=== PATIENT | male | born 1955 | race Caucasian/White ===

== ENCOUNTER 2016-07-24 10:42 | Emergency (ER) | payer OTHER ==
[2016-07-24 11:22] VITALS: BP 128/80; PULSE 104; TEMP 98.2; BMI 27.9
[2016-07-24] MEDS ORDERED: ALBUTEROL SO4 2.5/IPRATROPIUM 0.5 INH SOL 3 ML VIAL.NEB. NEB ONE ×3 (12:54→13:27)
--- NOTE | 2016-07-24 13:02 | PDOC ---
History of Present Illness - General Chief Complaint: Cold Symptoms Stated Complaint: SOB, COUGH, WHEEZING Time Seen by Provider: 07/24/16 12:38 History Source: Patient Exam Limitations: No Limitations - History of Present Illness Initial Comments: 07/24/16 12:57 Chief complaint: Productive cough, shortness of breath, wheezing History of present illness: Patient is a 60-year-old male with a history of COPD , insulin-dependent diabetes with pump, with peripheral neuropathy, GERD, and Lyme's disease here today complaining of nasal congestion, with low-grade fever and productive cough with greenish phlegm 1-1/2 weeks. Patient reports that he feels short of breath intermittently even at rest and with ambulation. His been using his albuterol pump up to 4 times a day with temporary relief of symptoms. Patient denies any sore throat, vomiting or diarrhea. Patient denies any sick contacts. 07/24/16 13:54 Timing/Duration: getting worse Severity: moderate Associated Symptoms: reports: cough (productive greenish phelgm ), fever/chills (low grade), shortness of breath Past History - Past Medical History Allergies/Adverse Reactions: Allergies Allergy/AdvReac Type Severity Reaction Status Date / Time No Known Drug Allergies Allergy Verified 07/24/16 11:18 DUST Allergy Mild Uncoded 07/24/16 11:18 GRASS Allergy Mild Uncoded 07/24/16 11:18 Home Medications: Ambulatory Orders Insulin Pump Cartridge [Omnipod] 1 each SQ DAILY 08/25/13 Omeprazole [Prilosec (RX)] 40 mg PO DAILY 03/07/15 Pregabalin [Lyrica] 150 mg PO BID 11/22/15 Famotidine [Pepcid] 20 mg PO DAILY #14 tablet 06/11/16 Albuterol 0.083% Nebulizer Rose Marie [Ventolin 0.083% Nebulizer Soln -] 1 neb NEB Q4H PRN #30 vial 07/24/16 Albuterol Sulfate Inhaler - [Ventolin HFA Inhaler -] 2 inh PO Q4H PRN #1 inh 10/05 Azithromycin [Zithromax 250mg Tablets -] 250 mg PO UTDICT #6 tab 07/24/16 Fexofenadine HCl [Adelaide Allergy] 180 mg PO DAILY #7 tablet 07/24/16 Prednisone [Deltasone] 20 mg PO BID #8 tablet 07/24/16 Anemia: Yes Asthma: Yes Cancer: No Cardiac Disorders: Yes (HAD ANGIOPLASTYx2 no stent) CVA: No COPD: Yes CHF: No Dementia: No Diabetes: Yes (IDDM-INSULIN PUMP) GI Disorders: Yes (GERD) Disorders: No HTN: No Hypercholesterolemia: Yes Liver Disease: (PANCREAS PROBLEM) Suicide Attempt (Hx): No Seizures: No Thyroid Disease: No - Surgical History Abdominal Surgery: No Appendectomy: No Cardiac Surgery: Yes (ANGIOPLASTY) Cholecystectomy: No Lung Surgery: No Neurologic Surgery: No Orthopedic Surgery: No - Immunization History Immunization Up to Date: Yes - Psycho/Social/Smoking Cessation Hx Anxiety: No Suicidal Ideation: No Smoking Status: Yes Smoking History: Current every day smoker Have you smoked in the past 12 months: Yes Number of Cigarettes Smoked Daily: 5 If you are a former smoker, when did you quit?: SEPTEMBER 2015 Information on smoking cessation initiated: No 'Breaking Loose' booklet given: 09/30/13 Hx Alcohol Use: No Drug/Substance Use Hx: No Substance Use Type: None, Marijuana Hx Substance Use Treatment: No Review of Systems - Review of Systems Able to Perform ROS?: Yes Constitutional: Yes: Fever (low grade ) HEENTM: Yes: Nose Congestion Respiratory: Yes: Shortness of Breath, Wheezing, Productive cough (greenish phelgm for 1 1 /2 weeks ) Cardiac (ROS): No: Symptoms Reported ABD/GI: No: Symptoms Reported : No: Symptoms Reported Musculoskeletal: No: Symptoms Reported Integumentary: No: Symptoms Reported *Physical Exam - Vital Signs Last Vital Signs Temp Pulse Resp BP Pulse Ox 98.2 F 104 H 18 128/80 96 07/24/16 11:18 07/24/16 11:18 07/24/16 11:18 07/24/16 11:18 07/24/16 11:18 - Physical Exam General Appearance: Yes: Appropriately Dressed HEENT: positive: TMs Normal, Nasal Congestion. negative: Pharyngeal Erythema, Tonsillar Exudate, Tonsillar Erythema, Rhinorrhea Neck: negative: Lymphadenopathy (R), Lymphadenopathy (L) Respiratory/Chest: positive: Wheezing (diffuse expiratory b/l ), Other (lungs cta after RX b/l ). negative: Respiratory Distress, Accessory Muscle Use, Labored Respiration, Rapid RR, Decreased Breath Sounds Cardiovascular: positive: Regular Rhythm, Regular Rate, S1, S2 Integumentary: positive: Normal Color Neurologic: positive: Alert, Responsive Medical Decision Making - Medical Decision Making 07/24/16 13:54 07/24/16 13:54 Patient is a 60-year-old male with a history of COPD, insulin-dependent diabetes with pump, with peripheral neuropathy, GERD, and Lyme's disease here today complaining of nasal congestion, with low-grade fever and productive cough with greenish phlegm 1-1/2 weeks. Patient reports that he feels short of breath intermittently even at rest and with ambulation. His been using his albuterol pump up to 4 times a day with temporary relief of symptoms. Patient denies any sore throat, vomiting or diarrhea. Patient denies any sick contacts. Asthma exacerbation with productive cough rule out infiltrate nasal congestion PLAN: DuoNeb 2 Prednisone 60 mg by mouth now then 20 mg twice a day for following 4 days azithromycin 250 mg 2 tabs today than one tab daily for following 4 days adelaide 180 mg daily X 7 days Continue with Symbicort that he has at home will reorder albuterol 0.083% neb solution for every 4 hours as needed for shortness of breath or wheezing Albuterol multidose inhaler HFA 2 puffs every 4 hours as needed for shortness of breath or wheezing chest Xray PA/lateral no infiltrate nowed 07/24/16 14:16 Minimal expiratory wheeze bilaterally feeling much better not short of breath pulse ox is 98% presently 07/26/16 22:41 *DC/Admit/Observation/Transfer Diagnosis at time of Disposition: Asthma exacerbation in COPD, Nasal congestion - Discharge Dispostion Disposition: HOME Condition at time of disposition: Stable - Prescriptions Prescriptions: Fexofenadine HCl [Adelaide Allergy] 180 mg PO DAILY #7 tablet Prednisone [Deltasone] 20 mg PO BID #8 tablet Albuterol 0.083% Nebulizer Rose Marie [Ventolin 0.083% Nebulizer Soln -] 1 neb NEB Q4H PRN #30 vial PRN Reason: Cough Albuterol Sulfate Inhaler - [Ventolin HFA Inhaler -] 2 inh PO Q4H PRN #1 inh PRN Reason: Short Of Breath/Wheezing Azithromycin [Zithromax 250mg Tablets -] 250 mg PO UTDICT #6 tab - Referrals Referrals: Shmuel Balderas MD [Primary Care Provider] - - Patient Instructions Additional Instructions: Follow-up with your primary care provider within the next few days return to emergency room if symptoms worsen any difficulty breathing Drink a lot of fluids and rest Usual Symbicort pump as previously ordered do not use Advair also Patient voiced understanding of discharge instructions and all questions were answered
[2016-07-24] MEDS ORDERED: predniSONE 20 MG TABLET (UD) PO ONE (13:23)
[2016-07-24] MEDS ORDERED: predniSONE 20 MG TABLET (UD) ONE (13:27)
== END 2016-07-24 14:40 | disposition home or self-care (01) ==
LOC: JERFT 10:42
PROC: 3E0F7GC Introduction of Other Therapeutic Substance into Respiratory Tract, Via Natural or Artificial Opening (ICD-10-PCS; principal; 2016-07-24)
DX: J44.1 Chronic obstructive pulmonary disease with (acute) exacerbation (principal); E10.9 Type 1 diabetes mellitus without complications; Z96.41 Presence of insulin pump (external) (internal); Z79.4 Long term (current) use of insulin; G62.9 Polyneuropathy, unspecified; K21.9 Gastro-esophageal reflux disease without esophagitis; Z86.19 Personal history of other infectious and parasitic diseases
CPT/HCPCS: 71020-TC; 94640; 99281-25

== ENCOUNTER 2016-10-26 10:44 | Inpatient (IN) | payer OTHER ==
[2016-10-26 11:14] VITALS: BMI 27.3
[2016-10-26 12:35] LABS: BASOPHIL 0.8 % (0-2.0); EOSINOPHIL 2.8 % (0-4.5); MCH 29.2 pg (25.7-33.7); MCHC 33.3 g/dl (32.0-35.9); MEAN CELL VOLUME 87.7 fl (80-96); MEAN PLT VOLUME 9.8 fl (7.5-11.1); NEUTROPHILS 65.7 % (42.8-82.8); PLATELET COUNT 147 K/MM3 (134-434); RDW 14.4 % (11.9-15.9); WHITE BLOOD COUNT 7.5 K/mm3 (4.0-10.0)
--- NOTE | 2016-10-26 12:40 | PDOC ---
History of Present Illness - General Chief Complaint: Pain Stated Complaint: REVIST/ SWOLLEN NOSE Time Seen by Provider: 10/26/16 11:38 History Source: Patient Exam Limitations: No Limitations - History of Present Illness Initial Comments: 10/26/16 14:17 60yM hx of IDDM, COPD, HTN, HL, neuropathy represents with nsal pain - pt was seen in [facility] on 10/23 for a nodules/furuncles on his L armpit and on his penis and mild swelling/pain on his nose - he was treated with bactrim as outpatient - the nodules improved, but hte swelling on his nose has worsened and pt feels geenerally weak. pt denies any fevers, discharge. Past History - Past Medical History Allergies/Adverse Reactions: Allergies Allergy/AdvReac Type Severity Reaction Status Date / Time No Known Drug Allergies Allergy Verified 10/26/16 11:07 DUST Allergy Mild Uncoded 10/26/16 11:07 GRASS Allergy Mild Uncoded 10/26/16 11:07 Home Medications: Ambulatory Orders Insulin Pump Cartridge [Omnipod] 1 each SQ DAILY 08/25/13 Omeprazole [Prilosec (RX)] 40 mg PO DAILY 03/07/15 Pregabalin [Lyrica] 150 mg PO BID 11/22/15 Albuterol 0.083% Nebulizer Rose Marie [Ventolin 0.083% Nebulizer Soln -] 1 neb NEB Q4H PRN #30 vial 07/24/16 Albuterol Sulfate Inhaler - [Ventolin HFA Inhaler -] 2 inh PO Q4H PRN #1 inh 10/05 Sulfamethoxazole/Trimethoprim [Bactrim Ds -] 1 tab PO BID #10 tablet 10/23/16 Famotidine [Pepcid] 20 mg PO PRN PRN 10/26/16 Anemia: Yes Asthma: Yes Cancer: No Cardiac Disorders: Yes (HAD ANGIOPLASTYx2 no stent) CVA: No COPD: Yes CHF: No Dementia: No Diabetes: Yes (IDDM-INSULIN PUMP) GI Disorders: Yes (GERD) Disorders: No HTN: No Hypercholesterolemia: Yes Liver Disease: (PANCREAS PROBLEM) Suicide Attempt (Hx): No Seizures: No Thyroid Disease: No - Surgical History Abdominal Surgery: No Appendectomy: No Cardiac Surgery: Yes (ANGIOPLASTY) Cholecystectomy: No Lung Surgery: No Neurologic Surgery: No Orthopedic Surgery: No - Immunization History Immunization Up to Date: Yes - Psycho/Social/Smoking Cessation Hx Anxiety: No Suicidal Ideation: No Smoking Status: Yes Smoking History: Current some day smoker Have you smoked in the past 12 months: Yes Number of Cigarettes Smoked Daily: 5 If you are a former smoker, when did you quit?: SEPTEMBER 2015 Information on smoking cessation initiated: No 'Breaking Loose' booklet given: 10/23/16 Hx Alcohol Use: No Drug/Substance Use Hx: No Substance Use Type: None, Marijuana Hx Substance Use Treatment: No Review of Systems - Review of Systems Able to Perform ROS?: Yes Comments:: 10/26/16 14:19 MomConstitutional - no reported Fever, Chills, weakness, HEENT: +nasal pain/sewlling no reported vision changes, sore throat Respiratory: no reported cough, sob, hemoptysis Cardiac: no reported chest pain, palpitations, light headedness, leg swelling Abd/GI: no reported abd pain, nausea, vomiting, blood per rectum, melena, diarrhea : no reported dysuria, frequency, discharge Musculskelatal - no reported back pain, joint swelling skin - no reported bruising, erythema, rash neurological: no reported headache, numbness, focal weakness, tingling, ataxia, weakness hematologic: no reported anemia, easy bruising, easy bleeding *Physical Exam - Vital Signs Last Vital Signs Temp Pulse Resp BP Pulse Ox 97.5 F L 74 19 125/71 98 10/26/16 11:07 10/26/16 11:07 10/26/16 11:07 10/26/16 11:07 10/26/16 11:07 - Physical Exam Comments: 10/26/16 14:21 GENERAL: The patient is awake, alert, and fully oriented, Nontoxic - in no acute distress. HEAD: Normocephalic, atraumatic. EYES: extraocular movements intact, sclera anicteric, conjunctiva clear. ENT: +induration/erythema?swelling on noase, mild tenderness over bridge, Normal voice, Moist mucous membranes. NECK: Normal range of motion, supple LUNGS: Breath sounds equal, clear to auscultation bilaterally. No wheezes, no rhonchi, no rales. HEART: Regular rate and rhythm, normal S1 and S2 without murmur, rub or gallop. ABDOMEN: Soft, nontender, normoactive bowel sounds. No guarding, no rebound. . No CVA tenderness EXTREMITIES: nodules improved in l armpit Normal range of motion, no edema. No clubbing or cyanosis. No cords, erythema, or tenderness. NEUROLOGICAL: No facial assymetry, Normal speech, PSYCH: Normal mood, normal affect. SKIN: Warm, Dry, normal turgor, +cellulitis over tip of nose ED Treatment Course - LABORATORY CBC & Chemistry Diagram: 10/27/16 06:00 10/27/16 06:00 Medical Decision Making - Medical Decision Making 10/26/16 15:[address] haro will admit for failed outpatient mangaement of nasal celulitis pt given ctx will admit to med surg Case discussed in detail with admitting physician including history, physical exam and ancillary studies. Admitting physician has assumed care for the patient, will follow all pending diagnostics and will complete the evaluation and treatment. *DC/Admit/Observation/Transfer Diagnosis at time of Disposition: Cellulitis of nose Diabetes mellitus, insulin dependent (IDDM), uncontrolled Qualifiers: Diabetes mellitus complication status: with other specified complication Qualified Code(s): E10.69 - Type 1 diabetes mellitus with other specified complication - Discharge Dispostion Admit: Yes
[2016-10-26 12:57] LABS: INR 0.9 (0.82-1.09); PROTHROMBIN TIME (PATIENT) 9.9 SEC (9.98-11.88)
[2016-10-26 13:08] LABS: ALBUMIN 3.5 g/dl (3.4-5.0); ALK PHOS 112 U/L (45-117); ANION GAP 8 (8-16); BILIRUBIN,TOTAL 0.2 mg/dL (0.2-1.0); CALCIUM 8.4 mg/dL (8.5-10.1); CO2 27 mmol/L (21-32); COCKROFT - GAULT 78.67; CREATININE 1.2 mg/dL (0.7-1.3); GLUCOSE,RANDOM 102 mg/dL (74-106); SGPT/ALT 21 U/L (12-78); TOT PROT 6.7 g/dl (6.4-8.2)
[2016-10-26 13:13] LABS: SGOT/AST 16 U/L (15-37)
[2016-10-26] MEDS ORDERED: CEFTRIAXONE 1 GM in DEXTROSE 5%-WATER - 50 ML IVPB ONE (14:14)
[2016-10-26] MEDS ORDERED: OXYCODONE/APAP 5/325MG COMBO TABLET PO ONE (14:16)
[2016-10-26] MEDS ORDERED: CEFTRIAXONE 50 ML ONE (14:24)
[2016-10-26] MEDS ORDERED: OXYCODONE/APAP 5/325MG COMBO TABLET ONE (14:24)
[2016-10-26] MEDS ORDERED: ALBUTEROL SO4 0.083% IH SOL 2.5 MG/3 ML VIAL.NEB. NEB PRN (17:39)
[2016-10-26] MEDS ORDERED: OXYCODONE/APAP 5/325MG COMBO TABLET PO PRN (20:29)
[2016-10-26] MEDS ORDERED: PREGABALIN 100 MG CAPSULE PO SCH (22:00)
[2016-10-26] MEDS: INSULIN SLIDING SCALE (NOVOLOG) 1 VIAL SQ SCH (22:26)
[2016-10-26] MEDS: ACETAMINOPHEN 325 MG TABLET (FP) PO PRN (22:37)
[2016-10-26] MEDS: oxyCODONE HCL 5 MG TABLET PO PRN (22:38)
[2016-10-26] MEDS: PREGABALIN 75 MG CAPSULE PO SCH (22:41)
[2016-10-27] MEDS: INSULIN SLIDING SCALE (NOVOLOG) 1 VIAL SQ SCH ×3 (06:12→22:38)
[2016-10-27 08:00] LABS: BASOPHIL 0.4 % (0-2.0); EOSINOPHIL 3.5 % (0-4.5); MCH 29.4 pg (25.7-33.7); MCHC 33.7 g/dl (32.0-35.9); MEAN CELL VOLUME 87.3 fl (80-96); NEUTROPHILS 62.1 % (42.8-82.8); PLATELET COUNT 148 K/MM3 (134-434); RDW 14.3 % (11.9-15.9); WHITE BLOOD COUNT 6.5 K/mm3 (4.0-10.0)
[2016-10-27 08:26] LABS: ALBUMIN 1.2 g/dl (3.4-5.0); CALCIUM 7.3 mg/dL (8.5-10.1)
[2016-10-27 08:31] LABS: BILIRUBIN,TOTAL 1.1 mg/dL (0.2-1.0); COCKROFT - GAULT 47.2; TOT PROT 3.9 g/dl (6.4-8.2)
--- NOTE | 2016-10-27 09:34 | PN ---
Progress Note (short form) - Note Progress Note: ID Full note dictated Basically 60 year old severe diabetic male with nasal cellulitis after nasal hair clipping 2 days before. seen in ER and given vancom x 1 dose discharged Bactrim without improvement. Selected Entries 10/27/16 06:00 Temperature 98.1 F Pulse Rate 59 L Respiratory 18 Rate Blood Pressure 121/69 Assesment Cellulitis of the nose as well as abscess small left axilla and penis ( eschar not fluctuant or tender) Nose has a small pustule but does not seem fluctuant it is however tender Plan Treat for MRSA Warm soaks to face Nasal swab MRSA Amanda Problem List - Problems (1) Cellulitis of nose Code(s): J34.0 - ABSCESS, FURUNCLE AND CARBUNCLE OF NOSE (2) Diabetes mellitus, insulin dependent (IDDM), uncontrolled Code(s): E10.65 - TYPE 1 DIABETES MELLITUS WITH HYPERGLYCEMIA Qualifiers: Diabetes mellitus complication status: with other specified complication Qualified Code(s): E10.69 - Type 1 diabetes mellitus with other specified complication; E10.65 - Type 1 diabetes mellitus with hyperglycemia
--- NOTE | 2016-10-27 09:39 | HP ---
Admitting History and Physical - Primary Care Physician PCP: Nita Sales - Admission Chief Complaint: CELLULITIS History Source: Medical Record - Past Medical History Cardiovascular: Yes: HTN, Hyperlipdemia Endocrine: Yes: Diabetes Mellitus - Smoking History Smoking history: Current some day smoker Have you smoked in the past 12 months: Yes Aproximately how many cigarettes per day: 5 If you are a former smoker, when did you quit?: SEPTEMBER 2015 - Alcohol/Substance Use Hx Alcohol Use: No Home Medications - Allergies Allergies/Adverse Reactions: Allergies Allergy/AdvReac Type Severity Reaction Status Date / Time No Known Drug Allergies Allergy Verified 10/26/16 11:07 DUST Allergy Mild Uncoded 10/26/16 11:07 GRASS Allergy Mild Uncoded 10/26/16 11:07 - Home Medications Home Medications: Ambulatory Orders Insulin Pump Cartridge [Omnipod] 1 each SQ DAILY 08/25/13 Omeprazole [Prilosec (RX)] 40 mg PO DAILY 03/07/15 Pregabalin [Lyrica] 150 mg PO BID 11/22/15 Albuterol 0.083% Nebulizer Rose Marie [Ventolin 0.083% Nebulizer Soln -] 1 neb NEB Q4H PRN #30 vial 07/24/16 Albuterol Sulfate Inhaler - [Ventolin HFA Inhaler -] 2 inh PO Q4H PRN #1 inh 10/05 Sulfamethoxazole/Trimethoprim [Bactrim Ds -] 1 tab PO BID #10 tablet 10/23/16 Famotidine [Pepcid] 20 mg PO PRN PRN 10/26/16 Review of Systems - Review of Systems Constitutional: denies: Chills, Fever Cardiovascular: denies: Chest Pain Respiratory: denies: SOB Gastrointestinal: denies: Abdominal Pain Integumentary: reports: Erythema, Rash Physical Examination Vital Signs: Vital Signs Temperature 98.1 F 10/27/16 06:00 Pulse Rate 59 L 10/27/16 06:00 Respiratory Rate 18 10/27/16 06:00 Blood Pressure 121/69 10/27/16 06:00 O2 Sat by Pulse Oximetry (%) 95 10/26/16 18:19 Findings/Remarks: DOES NOT HAVE INSULIN PUMP REFILL CONCERNED ABOUT GETTING MULTIPLE INJECTIONS IN [employer] Constitutional: Yes: Calm Neck: Yes: WNL Cardiovascular: Yes: WNL Respiratory: Yes: WNL Gastrointestinal: Yes: WNL Edema: No Integumentary: Yes: Erythema Labs: CBC, BMP 10/27/16 06:00 10/27/16 06:00 Imaging - Results Chest X-ray: Report Reviewed Problem List - Problems (1) Cellulitis of nose Code(s): J34.0 - ABSCESS, FURUNCLE AND CARBUNCLE OF NOSE (2) Diabetes mellitus, insulin dependent (IDDM), uncontrolled Code(s): E10.65 - TYPE 1 DIABETES MELLITUS WITH HYPERGLYCEMIA Qualifiers: Diabetes mellitus complication status: with other specified complication Qualified Code(s): E10.69 - Type 1 diabetes mellitus with other specified complication; E10.65 - Type 1 diabetes mellitus with hyperglycemia (3) COPD (chronic obstructive pulmonary disease) Code(s): J44.9 - CHRONIC OBSTRUCTIVE PULMONARY DISEASE, UNSPECIFIED (4) Cellulitis Code(s): L03.90 - CELLULITIS, UNSPECIFIED (5) AMARJIT (acute kidney injury) Code(s): N17.9 - ACUTE KIDNEY FAILURE, UNSPECIFIED Assessment/Plan 60yM hx of IDDM, COPD, HTN, HL, neuropathy represents with nsal pain - pt was seen in [facility] on 10/23 for a nodules/furuncles on his L armpit and on his penis and mild swelling/pain on his nose - he was treated with bactrim as outpatient - the nodules improved, but hte swelling on his nose has worsened and pt feels geenerally weak. pt denies any fevers, discharge. (1) Cellulitis of nose Code(s): J34.0 - ABSCESS, FURUNCLE AND CARBUNCLE OF NOSE + PENIS/L AXILA ID ON CASE IV ABx F/U CULTURES (2) Diabetes mellitus, insulin dependent (IDDM), uncontrolled Code(s): E10.65 - TYPE 1 DIABETES MELLITUS WITH HYPERGLYCEMIA Qualifiers: Diabetes mellitus complication status: with other specified complication Qualified Code(s): E10.69 - Type 1 diabetes mellitus with other specified complication; E10.65 - Type 1 diabetes mellitus with hyperglycemia BGM ISS (3) COPD (chronic obstructive pulmonary disease) Code(s): J44.9 - CHRONIC OBSTRUCTIVE PULMONARY DISEASE, UNSPECIFIED ALB NEB PRN (4) Cellulitis Code(s): L03.90 - CELLULITIS, UNSPECIFIED (5) AMARJIT (acute kidney injury) Code(s): N17.9 - ACUTE KIDNEY FAILURE, UNSPECIFIED [employer]
[2016-10-27] MEDS ORDERED: SODIUM CHLORIDE 500 ML IV STA (09:43)
[2016-10-27] MEDS ORDERED: PT OWN MED DRAWER 7, Y5N ONE ×2 (09:56→20:21)
--- NOTE | 2016-10-27 09:59 | CONS ---
DATE OF CONSULTATION: HISTORY: This is a 60-year-old insulin-dependent diabetic who I am asked to see because of severe nasal redness and tenderness. He was seen in the emergency room on October 23 for the same reason and at the same time noted a furuncle in his left axilla. Two days prior to his emergency room visit, he had noted trimming nasal hairs with an electric clipper. He denied any fever or chills and while in the emergency room was given 1.5 g of vancomycin and discharged on Bactrim. She has been taking the Bactrim but because of persistent pain, redness, and swelling of his nose, he is now admitted for further antibiotic treatment. He does not have any fever or chills and does note a lesion on the penis, which started simultaneously with the onset of his nasal erythema. PAST MEDICAL HISTORY: Includes hypertension, hyperlipidemia, peripheral neuropathy, insulin-dependent diabetes. MEDICATIONS: Insulin pump, omeprazole, Lyrica, Pepcid. ALLERGIES: None known. SOCIAL HISTORY: Smoker. Denies substance abuse. HIV testing negative May 2016. PAST SURGICAL HISTORY: Includes anion gap. FAMILY HISTORY: Noncontributory. REVIEW OF SYSTEMS: Respiratory: No cough or shortness of breath. Cardiac: No chest pain or palpitations. Gastrointestinal: No nausea, vomiting, or diarrhea. Genitourinary: No dysuria or hematuria. PHYSICAL EXAMINATION: Vital Signs: Temperature 97.5, pulse 74, respirations 19, blood pressure 125/71. HEENT: Reveals induration, tenderness, and redness of the tip of the nose, which is exquisitely tender but does not appear fluctuant. There is a small, pustular lesion noted at the base of the nose but no drainage seen. Neck: Supple without adenopathy. Lungs: Clear to P and A. Heart: S1, S2. Regular rhythm without murmur. Abdomen: Soft and nontender without organomegaly. Skin: Reveals a small, nonfluctuant abscess of the left axilla and a dry, indurated, what appears to be eschar on the penile shaft, which is nontender with no drainage evident. The white count is 6.5, hemoglobin 13.3, platelets 148, BUN 25, creatinine 2. Liver enzymes: Alkaline phosphatase 162. HIV testing negative May 2016. Abdominal sonogram dated June 11, 2016 shows partially distended gallbladder without intraluminal stones or wall thickening and no pericholecystic fluid noted. ASSESSMENT: Insulin-dependent diabetic presents with facial cellulitis involving the tip of the nose, small pustular lesion seen, concomitant small abscess in the left axilla as well as a dry eschar, which is recent on the penile shaft all of which seem most consistent with community-acquired methicillin-resistant Staphylococcus aureus infection. I am comfortable in the absence of systemic symptoms treating him with gram-positive coverage alone. We will give him vancomycin 1.5 g redosed now and check a level tomorrow morning with redosing of vancomycin accordingly. Warm soaks to the area. Monitor liver enzymes. Nares screening for MRSA. SKYE SORIA M.D. [id number]
[2016-10-27] MEDS ORDERED: INSULIN PUMP CARTRIDGE SQ SCH (10:00)
[2016-10-27] MEDS ORDERED: CEFTRIAXONE 50 ML IVPB SCH (10:00)
[2016-10-27] MEDS ORDERED: VANCOMYCIN 1,500 MG in DEXTROSE 5%-WATER - 500 ML IVPB ONE ×2 (10:00→10:30)
[2016-10-27] MEDS: RANITIDINE HCL 150 MG TABLET (FP) PO SCH (10:06)
[2016-10-27] MEDS: PREGABALIN 75 MG CAPSULE PO SCH ×2 (10:06→22:31)
[2016-10-27] MEDS: LORATADINE 10 MG TABLET PO SCH (10:06)
[2016-10-27] MEDS: oxyCODONE HCL 5 MG TABLET PO PRN ×3 (10:16→22:45)
[2016-10-27] MEDS: ACETAMINOPHEN 325 MG TABLET (FP) PO PRN ×3 (10:17→22:44)
--- NOTE | 2016-10-27 11:26 | CON.NEP ---
Consult Consult Specialty:: RENAL Reason for Consultation:: renal insufficiency - History of Present Illness Chief Complaint: nasal cellulitis History of Present Illness: 60 yearold admitted with cellulitis of his nose that has not improved in 4 days. He had an acute rise in creatinine. So nephrology is called. Says he always gets infections and has been on an insulin pump for a long time. Has bells palsy, neuropathy, ckd, htn. Says his diabetes was discovered 17 years ago because he lost his vision. He is able to urinate without problems. - History Source History Provided By: Patient, Medical Record - Past Medical History Cardio/Vascular: Yes: HTN, Hyperlipdemia Endocrine: Yes: Diabetes Mellitus - Alcohol/Substance Use Hx Alcohol Use: No - Smoking History Smoking history: Current some day smoker Have you smoked in the past 12 months: Yes Aproximately how many cigarettes per day: 5 If you are a former smoker, when did you quit?: SEPTEMBER 2015 Home Medications - Allergies Allergies/Adverse Reactions: Allergies Allergy/AdvReac Type Severity Reaction Status Date / Time No Known Drug Allergies Allergy Verified 10/26/16 11:07 DUST Allergy Mild Uncoded 10/26/16 11:07 GRASS Allergy Mild Uncoded 10/26/16 11:07 - Home Medications Home Medications: Ambulatory Orders Insulin Pump Cartridge [Omnipod] 1 each SQ DAILY 08/25/13 Omeprazole [Prilosec (RX)] 40 mg PO DAILY 03/07/15 Pregabalin [Lyrica] 150 mg PO BID 11/22/15 Albuterol 0.083% Nebulizer Rose Marie [Ventolin 0.083% Nebulizer Soln -] 1 neb NEB Q4H PRN #30 vial 07/24/16 Albuterol Sulfate Inhaler - [Ventolin HFA Inhaler -] 2 inh PO Q4H PRN #1 inh 10/05 Sulfamethoxazole/Trimethoprim [Bactrim Ds -] 1 tab PO BID #10 tablet 10/23/16 Famotidine [Pepcid] 20 mg PO PRN PRN 10/26/16 Review of Systems - Review of Systems Constitutional: reports: No Symptoms Eyes: reports: No Symptoms HENT: reports: No Symptoms Neck: reports: No Symptoms Cardiovascular: reports: No Symptoms Respiratory: reports: No Symptoms Gastrointestinal: reports: No Symptoms Genitourinary: reports: No Symptoms Breasts: reports: No Symptoms Reported Musculoskeletal: reports: No Symptoms Integumentary: reports: Erythema Neurological: reports: No Symptoms Endocrine: reports: No Symptoms Hematology/Lymphatic: reports: No Symptoms Psychiatric: reports: No Symptoms Nephrology Consult - Height Height: 5 ft 9 in - Weight Weight: 185 lb - BMI Body Mass Index (BMI): 27.3 - Lab Results CBC,BMP: CBC, BMP 10/27/16 06:00 10/27/16 06:00 Anion Gap: Anion Gap Anion Gap 10 (8-16) 10/27/16 06:00 - Imaging X-ray: Report Reviewed (MAVERICK) - Physical Examination Vital Signs: Vital Signs Temperature 98.1 F 10/27/16 06:00 Pulse Rate 59 L 10/27/16 06:00 Respiratory Rate 18 10/27/16 06:00 Blood Pressure 121/69 10/27/16 06:00 O2 Sat by Pulse Oximetry (%) 95 10/26/16 18:19 Constitutional: Yes: Well Nourished, No Distress, Calm Eyes: Yes: Conjunctiva Clear HENT: Yes: Atraumatic, Other (asymmetric face nasal swelling and erythema) Neck: Yes: WNL Cardiovascular: Yes: Regular Rate and Rhythm Respiratory: Yes: Regular, CTA Bilaterally Gastrointestinal: Yes: Normal Bowel Sounds Renal/: Yes: WNL. No: Bladder Distention Musculoskeletal: Yes: WNL Extremities: Yes: WNL Edema: No Wound/Incision: Yes: Clean/Dry Neurological: Yes: Alert, Oriented Psychiatric: Yes: Alert, Oriented Assessment/Plan IMPRESSION AMARJIT- may have been from combination of volume depletion and bactrim probable ckd previous proteinuria may have been from uti +/_concentrated urine facial cellulitis hypernatremia PLAN monitor vanco trough hydrate obtain urinalysis, urine sodium and creat urine protein Im aware of need for vanco but would avoid other potential nephrotoxic agents MV
[2016-10-27] MEDS ORDERED: INSULIN SLIDING SCALE (NOVOLOG) 1 VIAL SQ SCH (14:28)
[2016-10-27 16:06] LABS: URINE APPEARANCE CLEAR; URINE BILIRUBIN NEGATIVE (NEGATIVE); URINE BLOOD NEGATIVE (NEGATIVE); URINE COLOR LTYELLOW; URINE GLUCOSE (UA) 1+ (NEGATIVE); URINE KETONE NEGATIVE (NEGATIVE); URINE LEUK ESTERASE NEGATIVE (NEGATIVE); URINE NITRITE NEGATIVE (NEGATIVE); URINE PROTEIN NEGATIVE (NEGATIVE); URINE UROBILINOGEN NEGATIVE E.U./dl (0.2-1.0)
[2016-10-27] MEDS ORDERED: INSULIN (NOVOLOG) ASPART 100 UNITS/ML 10ML VIAL ONE (16:36)
[2016-10-27] MEDS: diphenhydrAMINE HCL 25 MG CAPSULE (FP) PO PRN (16:40)
[2016-10-27] MEDS ORDERED: INSULIN DETEMIR 100 UNITS/ML MDV SQ ONE ×2 (17:05→17:48)
[2016-10-27] MEDS: MUPIROCIN CA 2% TOPICAL CREAM 15 GM TUBE TP SCH (22:31)
--- NOTE | 2016-10-28 00:45 | CONSULT ---
Consult Consult Specialty:: endocrine Referred by:: Reason for Consultation:: iddm type 1 - History of Present Illness Chief Complaint: high sugars skin infection on nose and penis History of Present Illness: 60yM hx of IDDM, COPD, HTN, HL, neuropathy represents with nsal pain - pt was seen in [facility] [place] on 10/23 for a nodules/furuncles on his L armpit and on his penis and mild swelling/pain on his nose - he was treated with bactrim as outpatient - the nodules improved, but the swelling on nose and face area increase,denies fever or chills - History Source History Provided By: Patient - Past Medical History Cardio/Vascular: Yes: HTN, Hyperlipdemia Endocrine: Yes: Diabetes Mellitus - Alcohol/Substance Use Hx Alcohol Use: No - Smoking History Smoking history: Current some day smoker Have you smoked in the past 12 months: Yes Aproximately how many cigarettes per day: 5 If you are a former smoker, when did you quit?: SEPTEMBER 2015 Home Medications - Allergies Allergies/Adverse Reactions: Allergies Allergy/AdvReac Type Severity Reaction Status Date / Time No Known Drug Allergies Allergy Verified 10/26/16 11:07 DUST Allergy Mild Uncoded 10/26/16 11:07 GRASS Allergy Mild Uncoded 10/26/16 11:07 - Home Medications Home Medications: Ambulatory Orders Insulin Pump Cartridge [Omnipod] 1 each SQ DAILY 08/25/13 Omeprazole [Prilosec (RX)] 40 mg PO DAILY 03/07/15 Pregabalin [Lyrica] 150 mg PO BID 11/22/15 Albuterol 0.083% Nebulizer Rose Marie [Ventolin 0.083% Nebulizer Soln -] 1 neb NEB Q4H PRN #30 vial 07/24/16 Albuterol Sulfate Inhaler - [Ventolin HFA Inhaler -] 2 inh PO Q4H PRN #1 inh 10/05 Sulfamethoxazole/Trimethoprim [Bactrim Ds -] 1 tab PO BID #10 tablet 10/23/16 Famotidine [Pepcid] 20 mg PO PRN PRN 10/26/16 Review of Systems - Review of Systems Constitutional: reports: Lethargy, Malaise, Weakness Eyes: reports: No Symptoms HENT: reports: No Symptoms Neck: reports: No Symptoms Cardiovascular: reports: No Symptoms Respiratory: reports: Cough, Exercise Intolerance, SOB, SOB on Exertion Gastrointestinal: reports: No Symptoms Genitourinary: reports: No Symptoms Breasts: reports: No Symptoms Reported Musculoskeletal: reports: Muscle Pain, Muscle Cramps, Muscle Weakness Integumentary: reports: No Symptoms, Pruritis Neurological: reports: Numbness, Weakness Endocrine: reports: Unexplained Weight Gain Physical Exam Vital Signs: Vital Signs Temperature 98.2 F 10/27/16 20:00 Pulse Rate 74 10/27/16 20:00 Respiratory Rate 18 10/27/16 20:00 Blood Pressure 109/54 10/27/16 20:00 O2 Sat by Pulse Oximetry (%) 96 10/27/16 09:00 Constitutional: Yes: Anxious Eyes: Yes: EOM Intact HENT: Yes: Normocephalic, Nasal Congestion, Pharyngeal Erythema Neck: Yes: Trachea Midline Cardiovascular: Yes: Regular Rate and Rhythm Respiratory: Yes: CTA Bilaterally Gastrointestinal: Yes: Normal Bowel Sounds ...Rectal Exam: Yes: Deferred Renal/: Yes: WNL Breast(s): Yes: WNL Musculoskeletal: Yes: WNL Extremities: Yes: WNL Edema: No Integumentary: Yes: Erythema, Other (tip of nose 2cm circular area of reddness and swelling) Labs: CBC, BMP 10/27/16 06:00 10/27/16 06:00 Problem List - Problems (1) AMARJIT (acute kidney injury) Code(s): N17.9 - ACUTE KIDNEY FAILURE, UNSPECIFIED (2) COPD (chronic obstructive pulmonary disease) Code(s): J44.9 - CHRONIC OBSTRUCTIVE PULMONARY DISEASE, UNSPECIFIED (3) Cellulitis of nose Code(s): J34.0 - ABSCESS, FURUNCLE AND CARBUNCLE OF NOSE (4) Diabetes mellitus, insulin dependent (IDDM), uncontrolled Code(s): E10.65 - TYPE 1 DIABETES MELLITUS WITH HYPERGLYCEMIA Qualifiers: Diabetes mellitus complication status: with other specified complication Qualified Code(s): E10.69 - Type 1 diabetes mellitus with other specified complication; E10.65 - Type 1 diabetes mellitus with hyperglycemia Assessment/Plan Current Active Problems AMARJIT (acute kidney injury) (Acute) COPD (chronic obstructive pulmonary disease) (Acute) Cellulitis (Acute) Cellulitis of nose (Acute) Diabetes mellitus, insulin dependent (IDDM), uncontrolled (Acute) Abnormal Lab Results 10/27/16 10/27/16 06:00 14:00 Sodium 147 H Chloride 117 H D Carbon Dioxide 20 L D BUN 25 H D Creatinine 2.0 H D Random Glucose 72 L D Calcium 7.3 L Total Bilirubin 1.1 H D AST 45 H D Alkaline Phosphatase 162 H D Total Protein 3.9 L D Albumin 1.2 L D Urine Glucose (UA) 1+ H plan: bgm qid novolg sliding scale will treatment for skin infection ongoing will use insulin insjections levemir 25 units sq am ck hba1c
[2016-10-28] MEDS: INSULIN SLIDING SCALE (NOVOLOG) 1 VIAL SQ SCH ×5 (06:40→22:08)
[2016-10-28] MEDS ORDERED: INSULIN DETEMIR 100 UNITS/ML MDV SQ SCH ×2 (07:00)
[2016-10-28] MEDS ORDERED: INSULIN (NOVOLOG) ASPART 100 UNITS/ML 10ML VIAL ONE ×2 (07:06→11:14)
[2016-10-28 07:29] LABS: BASOPHIL 0.7 % (0-2.0); EOSINOPHIL 4.1 % (0-4.5); MCH 29.2 pg (25.7-33.7); MCHC 33.5 g/dl (32.0-35.9); MEAN CELL VOLUME 87.2 fl (80-96); MEAN PLT VOLUME 9.3 fl (7.5-11.1); NEUTROPHILS 54.7 % (42.8-82.8); PLATELET COUNT 158 K/MM3 (134-434); RDW 13.9 % (11.9-15.9)
[2016-10-28 08:11] LABS: CALCIUM 8.8 mg/dL (8.5-10.1)
[2016-10-28 08:14] LABS: ALBUMIN 3.5 g/dl (3.4-5.0); ALK PHOS 129 U/L (45-117); ANION GAP 7 (8-16); BILIRUBIN,TOTAL 0.4 mg/dL (0.2-1.0); CO2 30 mmol/L (21-32); GLUCOSE,RANDOM 207 mg/dL (74-106); SGOT/AST 14 U/L (15-37); SGPT/ALT 22 U/L (12-78); TOT PROT 6.9 g/dl (6.4-8.2)
--- NOTE | 2016-10-28 08:18 | PN ---
Progress Note, Physician Chief Complaint: FEELS BETTER - Current Medication List Current Medications: Active Medications Acetaminophen (Tylenol -) 325 mg PO Q4H PRN PRN Reason: PAIN Stop: 10/29/16 20:56 Last Admin: 10/27/16 16:39 Dose: 325 mg Acetaminophen (Tylenol -) 650 mg PO Q6H PRN PRN Reason: PAIN Last Admin: 10/27/16 22:44 Dose: 650 mg Albuterol Sulfate (Ventolin 0.083% Nebulizer Soln -) 1 amp NEB Q4H PRN PRN Reason: COUGH Diphenhydramine HCl (Benadryl -) 25 mg PO Q6H PRN PRN Reason: FOR ITCHING Last Admin: 10/27/16 16:40 Dose: 25 mg Insulin Aspart (Novolog Vial Sliding Scale -) 1 vial SQ ACHS [facility] PRN Reason: Protocol Last Admin: 10/28/16 06:40 Dose: 7 units Insulin Detemir (Levemir Vial) 26 units SQ AM [facility] Last Admin: 10/28/16 06:39 Dose: 26 units Loratadine (Claritin -) 10 mg PO DAILY [facility] Last Admin: 10/27/16 10:06 Dose: 10 mg Mupirocin (Bactroban 2% Cream -) 1 applic TP BID [facility] Last Admin: 10/27/16 22:31 Dose: 1 appful Oxycodone HCl (Roxicodone -) 5 mg PO Q4H PRN PRN Reason: PAIN Last Admin: 10/27/16 16:40 Dose: 5 mg Oxycodone HCl (Roxicodone -) 5 mg PO Q6H PRN PRN Reason: PAIN Last Admin: 10/27/16 22:45 Dose: 5 mg Pregabalin (Lyrica -) 150 mg PO BID [facility] Last Admin: 10/27/16 22:31 Dose: 150 mg Ranitidine HCl (Zantac -) 150 mg PO DAILY [facility] Last Admin: 10/27/16 10:06 Dose: 150 mg - Objective Vital Signs: Vital Signs Temperature 97.7 F 10/28/16 06:00 Pulse Rate 65 10/28/16 06:00 Respiratory Rate 18 10/28/16 06:00 Blood Pressure 126/68 10/28/16 06:00 O2 Sat by Pulse Oximetry (%) 98 10/27/16 21:00 Constitutional: Yes: Calm Neck: Yes: WNL Cardiovascular: Yes: WNL Respiratory: Yes: WNL Gastrointestinal: Yes: WNL Edema: No Integumentary: Yes: Erythema (+ EDEMA IMPROVED) Labs: CBC, BMP 10/28/16 06:15 INR, PTT INR 0.90 (0.82-1.09) 10/26/16 12:22 Problem List - Problems (1) Cellulitis of nose Code(s): J34.0 - ABSCESS, FURUNCLE AND CARBUNCLE OF NOSE (2) Diabetes mellitus, insulin dependent (IDDM), uncontrolled Code(s): E10.65 - TYPE 1 DIABETES MELLITUS WITH HYPERGLYCEMIA Qualifiers: Diabetes mellitus complication status: with other specified complication Qualified Code(s): E10.69 - Type 1 diabetes mellitus with other specified complication; E10.65 - Type 1 diabetes mellitus with hyperglycemia (3) COPD (chronic obstructive pulmonary disease) Code(s): J44.9 - CHRONIC OBSTRUCTIVE PULMONARY DISEASE, UNSPECIFIED (4) Cellulitis Code(s): L03.90 - CELLULITIS, UNSPECIFIED (5) AMARJIT (acute kidney injury) Code(s): N17.9 - ACUTE KIDNEY FAILURE, UNSPECIFIED Assessment/Plan 60yM hx of IDDM, COPD, HTN, HL, neuropathy represents with nsal pain - pt was seen in [facility] [place] on 10/23 for a nodules/furuncles on his L armpit and on his penis and mild swelling/pain on his nose - he was treated with bactrim as outpatient - the nodules improved, but hte swelling on his nose has worsened and pt feels geenerally weak. pt denies any fevers, discharge. (1) Cellulitis of nose Code(s): J34.0 - ABSCESS, FURUNCLE AND CARBUNCLE OF NOSE + PENIS/L AXILA ID ON CASE IV ABx BCx NEG - F/U Cx (2) Diabetes mellitus, insulin dependent (IDDM), uncontrolled Code(s): E10.65 - TYPE 1 DIABETES MELLITUS WITH HYPERGLYCEMIA Qualifiers: Diabetes mellitus complication status: with other specified complication Qualified Code(s): E10.69 - Type 1 diabetes mellitus with other specified complication; E10.65 - Type 1 diabetes mellitus with hyperglycemia BGM ISS ENDO ON CASE (3) COPD (chronic obstructive pulmonary disease) Code(s): J44.9 - CHRONIC OBSTRUCTIVE PULMONARY DISEASE, UNSPECIFIED ALB NEB PRN (4) Cellulitis Code(s): L03.90 - CELLULITIS, UNSPECIFIED (5) AMARJIT (acute kidney injury) Code(s): N17.9 - ACUTE KIDNEY FAILURE, UNSPECIFIED RENAL ON CASE F/U NITHIN MERCHANT
[2016-10-28] MEDS: ACETAMINOPHEN 325 MG TABLET (FP) PO PRN ×2 (08:26→21:09)
[2016-10-28] MEDS: oxyCODONE HCL 5 MG TABLET PO PRN ×2 (08:27→21:07)
[2016-10-28] MEDS: HEPARIN NA (PORCINE) 5,000 UNITS/ML 1ML VIAL SQ SCH ×2 (09:15→21:10)
[2016-10-28] MEDS: LORATADINE 10 MG TABLET PO SCH (09:15)
[2016-10-28] MEDS: PREGABALIN 75 MG CAPSULE PO SCH ×2 (09:15→21:08)
[2016-10-28] MEDS: RANITIDINE HCL 150 MG TABLET (FP) PO SCH (09:15)
[2016-10-28] MEDS: MUPIROCIN CA 2% TOPICAL CREAM 15 GM TUBE TP SCH ×2 (09:17→21:10)
[2016-10-28 11:24] LABS: SODIUM,RANDOM URINE 98 MMOL/L
[2016-10-28] MEDS: diphenhydrAMINE HCL 25 MG CAPSULE (FP) PO PRN (12:28)
--- NOTE | 2016-10-28 12:42 | PN ---
Progress Note (short form) - Note Progress Note: RENAL Pt is awake and alert no new complaints says he has a lesion on his penis and wont let the nurse take a look at it Last Vital Signs Temp Pulse Resp BP Pulse Ox 97.8 F 83 20 128/80 98 10/28/16 11:43 10/28/16 09:21 10/28/16 09:21 10/28/16 09:21 10/28/16 09:00 lungs clear cvs s1s 2 rr +DEANRDE abd osft ext no edema neuro a+ox3 lesion on penis with some drainage CBC, BMP 10/28/16 06:15 10/28/16 06:15 Current Medications Generic Name Dose Route Start Last Admin Trade Name Freq PRN Reason Stop Dose Admin Acetaminophen 325 mg 10/26/16 20:57 10/27/16 16:39 Tylenol - PO 10/29/16 20:56 325 mg Q4H PRN Administration PAIN Acetaminophen 650 mg 10/26/16 21:10 10/28/16 08:26 Tylenol - PO 650 mg Q6H PRN Administration PAIN Albuterol Sulfate 1 amp 10/26/16 17:39 Ventolin 0.083% Nebulizer Soln - NEB Q4H PRN COUGH Diphenhydramine HCl 25 mg 10/27/16 14:27 10/28/16 12:28 Benadryl - PO 25 mg Q6H PRN Administration FOR ITCHING Heparin Sodium (Porcine) 5,000 unit 10/28/16 10:00 10/28/16 09:15 Heparin - SQ 5,000 unit BID JUAN Administration Insulin Aspart 1 vial 10/27/16 17:04 10/28/16 11:19 Novolog Vial Sliding Scale - SQ 7 units ACHS JUAN Administration Protocol Insulin Detemir 26 units 10/28/16 07:00 10/28/16 06:39 Levemir Vial SQ 26 units AM JUAN Administration Loratadine 10 mg 10/27/16 10:00 10/28/16 09:15 Claritin - PO 10 mg DAILY JUAN Administration Mupirocin 1 applic 10/27/16 22:00 10/28/16 09:17 Bactroban 2% Cream - TP 1 applic BID JUAN Administration Oxycodone HCl 5 mg 10/26/16 21:12 10/28/16 08:27 Roxicodone - PO 5 mg Q6H PRN Administration PAIN Pregabalin 150 mg 10/26/16 22:30 10/28/16 09:15 Lyrica - PO 150 mg BID JUAN Administration Ranitidine HCl 150 mg 10/27/16 10:00 10/28/16 09:15 Zantac - PO 150 mg DAILY JUAN Administration IMPRESSION AMARJIT- may have been from combination of volume depletion and bactrim- resolved probable ckd previous proteinuria may have been from uti +/_concentrated urine facial cellulitis stable hypernatremia resolved PLAN monitor vanco trough keep hydrated i cultured lesion on penis MV
[2016-10-28] MEDS: VANCOMYCIN 1 GRAM (PRE-DOCKED) 250 ML IVPB SCH (13:49)
--- NOTE | 2016-10-28 14:03 | PN ---
Progress Note, Physician History of Present Illness: Reports decreased nasal swelling and erythema No c/o fever/ chills - Current Medication List Current Medications: Active Medications Acetaminophen (Tylenol -) 325 mg PO Q4H PRN PRN Reason: PAIN Stop: 10/29/16 20:56 Last Admin: 10/27/16 16:39 Dose: 325 mg Acetaminophen (Tylenol -) 650 mg PO Q6H PRN PRN Reason: PAIN Last Admin: 10/28/16 08:26 Dose: 650 mg Albuterol Sulfate (Ventolin 0.083% Nebulizer Soln -) 1 amp NEB Q4H PRN PRN Reason: COUGH Diphenhydramine HCl (Benadryl -) 25 mg PO Q6H PRN PRN Reason: FOR ITCHING Last Admin: 10/28/16 12:28 Dose: 25 mg Heparin Sodium (Porcine) (Heparin -) 5,000 unit SQ BID [facility] Last Admin: 10/28/16 09:15 Dose: 5,000 unit Vancomycin HCl (Vancomycin (Pre-Docked)) 250 mls @ 166.667 mls/hr IVPB Q12H [facility] Last Admin: 10/28/16 13:49 Dose: 166.667 mls/hr Insulin Aspart (Novolog Vial Sliding Scale -) 1 vial SQ ACHS [facility] PRN Reason: Protocol Last Admin: 10/28/16 11:19 Dose: 7 units Insulin Detemir (Levemir Vial) 26 units SQ AM [facility] Last Admin: 10/28/16 06:39 Dose: 26 units Loratadine (Claritin -) 10 mg PO DAILY [facility] Last Admin: 10/28/16 09:15 Dose: 10 mg Mupirocin (Bactroban 2% Cream -) 1 applic TP BID [facility] Last Admin: 10/28/16 09:17 Dose: 1 applic Oxycodone HCl (Roxicodone -) 5 mg PO Q6H PRN PRN Reason: PAIN Last Admin: 10/28/16 08:27 Dose: 5 mg Pregabalin (Lyrica -) 150 mg PO BID [facility] Last Admin: 10/28/16 09:15 Dose: 150 mg Ranitidine HCl (Zantac -) 150 mg PO DAILY [facility] Last Admin: 10/28/16 09:15 Dose: 150 mg - Objective Vital Signs: Vital Signs Temperature 97.8 F 10/28/16 11:43 Pulse Rate 83 10/28/16 09:21 Respiratory Rate 20 10/28/16 09:21 Blood Pressure 128/80 10/28/16 09:21 O2 Sat by Pulse Oximetry (%) 98 10/28/16 09:00 Constitutional: Yes: No Distress Eyes: Yes: Conjunctiva Clear HENT: Yes: Other (+ erythema and swelling bridge of nose) Cardiovascular: Yes: Regular Rate and Rhythm, S1, S2 Respiratory: Yes: CTA Bilaterally Gastrointestinal: Yes: Normal Bowel Sounds, Soft. No: Tenderness Genitourinary: Yes: Other (+ penile lesion) Edema: No Labs: CBC, BMP 10/28/16 06:15 10/28/16 06:15 INR, PTT INR 0.90 (0.82-1.09) 10/26/16 12:22 Assessment/Plan Cellulitis, bridge of nose Penile shaft lesion , possible staph infection Await c/s Continue vancomycin
--- NOTE | 2016-10-28 21:57 | PN ---
Progress Note (short form) - Note Progress Note: iddm /neuropathy, improved cellulitis skin staph infxn Abnormal Lab Results 10/28/16 10/28/16 10/28/16 06:15 07:49 11:10 Anion Gap 7 L Random Glucose 207 H D AST 14 L D Alkaline Phosphatase 129 H D U Random Total Protein < 5 L Vancomycin Trough 3.153 L* Laboratory Results - last 24 hr 10/27/16 10/28/16 10/28/16 22:34 00:21 06:15 WBC RBC Hgb Hct MCV MCHC RDW Plt Count MPV Neutrophils % Lymphocytes % Monocytes % Eosinophils % Basophils % Sodium Potassium Chloride Carbon Dioxide Anion Gap BUN Creatinine Creat Clearance w eGFR POC Glucometer 362 217 Random Glucose Calcium Total Bilirubin AST ALT Alkaline Phosphatase Total Protein Albumin U Random Total Protein Ur Random Sodium Urine Creatinine Protein/Creatinin Ratio Vancomycin Trough RPR Titer Nonreactive 10/28/16 10/28/16 10/28/16 06:15 06:15 06:37 WBC 5.0 RBC 4.68 Hgb 13.7 Hct 40.9 MCV 87.2 MCHC 33.5 RDW 13.9 Plt Count 158 MPV 9.3 Neutrophils % 54.7 Lymphocytes % 33.6 D Monocytes % 6.9 Eosinophils % 4.1 Basophils % 0.7 Sodium 137 Potassium 4.5 Chloride 100 D Carbon Dioxide 30 D Anion Gap 7 L BUN 11 D Creatinine 1.0 D Creat Clearance w eGFR > 60 POC Glucometer 204 Random Glucose 207 H D Calcium 8.8 D Total Bilirubin 0.4 D AST 14 L D ALT 22 D Alkaline Phosphatase 129 H D Total Protein 6.9 D Albumin 3.5 D U Random Total Protein Ur Random Sodium Urine Creatinine Protein/Creatinin Ratio Vancomycin Trough RPR Titer 10/28/16 10/28/16 10/28/16 07:49 11:07 11:10 WBC RBC Hgb Hct MCV MCHC RDW Plt Count MPV Neutrophils % Lymphocytes % Monocytes % Eosinophils % Basophils % Sodium Potassium Chloride Carbon Dioxide Anion Gap BUN Creatinine Creat Clearance w eGFR POC Glucometer 233 Random Glucose Calcium Total Bilirubin AST ALT Alkaline Phosphatase Total Protein Albumin U Random Total Protein < 5 L Ur Random Sodium 98 Urine Creatinine 72.0 Protein/Creatinin Ratio <0.07 Vancomycin Trough 3.153 L* RPR Titer 10/28/16 10/28/16 16:54 21:16 WBC RBC Hgb Hct MCV MCHC RDW Plt Count MPV Neutrophils % Lymphocytes % Monocytes % Eosinophils % Basophils % Sodium Potassium Chloride Carbon Dioxide Anion Gap BUN Creatinine Creat Clearance w eGFR POC Glucometer 384 120 Random Glucose Calcium Total Bilirubin AST ALT Alkaline Phosphatase Total Protein Albumin U Random Total Protein Ur Random Sodium Urine Creatinine Protein/Creatinin Ratio Vancomycin Trough RPR Titer Laboratory Tests 10/28/16 10/28/16 10/28/16 00:21 06:37 11:07 POC Glucometer 217 204 233 10/28/16 10/28/16 16:54 21:16 POC Glucometer 384 120 Current Medications Generic Name Dose Route Start Last Admin Trade Name Freq PRN Reason Stop Dose Admin Acetaminophen 325 mg 10/26/16 20:57 10/27/16 16:39 Tylenol - PO 10/29/16 20:56 325 mg Q4H PRN Administration PAIN Acetaminophen 650 mg 10/26/16 21:10 10/28/16 21:09 Tylenol - PO 650 mg Q6H PRN Administration PAIN Albuterol Sulfate 1 amp 10/26/16 17:39 Ventolin 0.083% Nebulizer Soln - NEB Q4H PRN COUGH Diphenhydramine HCl 25 mg 10/27/16 14:27 10/28/16 12:28 Benadryl - PO 25 mg Q6H PRN Administration FOR ITCHING Heparin Sodium (Porcine) 5,000 unit 10/28/16 10:00 10/28/16 21:10 Heparin - SQ 5,000 unit BID JUAN Administration Vancomycin HCl 250 mls @ 166.667 mls/hr 10/28/16 14:00 10/28/16 13:49 Vancomycin (Pre-Docked) IVPB 166.667 mls/hr Q12H JUAN Administration Insulin Aspart 1 vial 10/27/16 17:04 10/28/16 17:01 Novolog Vial Sliding Scale - SQ 12 units ACHS JUAN Administration Protocol Insulin Detemir 26 units 10/28/16 07:00 10/28/16 06:39 Levemir Vial SQ 26 units AM JUAN Administration Loratadine 10 mg 10/27/16 10:00 10/28/16 09:15 Claritin - PO 10 mg DAILY JUAN Administration Mupirocin 1 applic 10/27/16 22:00 10/28/16 21:10 Bactroban 2% Cream - TP 1 applic BID JUAN Administration Oxycodone HCl 5 mg 10/26/16 21:12 10/28/16 21:07 Roxicodone - PO 5 mg Q6H PRN Administration PAIN Pregabalin 150 mg 10/26/16 22:30 10/28/16 21:08 Lyrica - PO 150 mg BID JUAN Administration Ranitidine HCl 150 mg 10/27/16 10:00 10/28/16 09:15 Zantac - PO 150 mg DAILY JUAN Administration plan : increase levemir 30 units am Problem List - Problems (1) AMARJIT (acute kidney injury) Code(s): N17.9 - ACUTE KIDNEY FAILURE, UNSPECIFIED (2) COPD (chronic obstructive pulmonary disease) Code(s): J44.9 - CHRONIC OBSTRUCTIVE PULMONARY DISEASE, UNSPECIFIED (3) Cellulitis of nose Code(s): J34.0 - ABSCESS, FURUNCLE AND CARBUNCLE OF NOSE (4) Diabetes mellitus, insulin dependent (IDDM), uncontrolled Code(s): E10.65 - TYPE 1 DIABETES MELLITUS WITH HYPERGLYCEMIA Qualifiers: Diabetes mellitus complication status: with other specified complication Qualified Code(s): E10.69 - Type 1 diabetes mellitus with other specified complication; E10.65 - Type 1 diabetes mellitus with hyperglycemia
[2016-10-29] MEDS: VANCOMYCIN 1 GRAM (PRE-DOCKED) 250 ML IVPB SCH ×2 (02:53→14:49)
[2016-10-29] MEDS: INSULIN DETEMIR 100 UNITS/ML MDV SQ SCH (06:07)
[2016-10-29] MEDS: INSULIN SLIDING SCALE (NOVOLOG) 1 VIAL SQ SCH ×4 (06:09→23:10)
[2016-10-29] MEDS ORDERED: INSULIN DETEMIR 100 UNITS/ML MDV SQ ONE (06:44)
[2016-10-29] MEDS ORDERED: INSULIN (NOVOLOG MIX 70/30) 100 UNITS/ML MDV SQ ONE (06:44)
[2016-10-29] MEDS ORDERED: INSULIN (NOVOLOG) ASPART 100 UNITS/ML 10ML VIAL ONE ×4 (06:44→21:12)
[2016-10-29 08:16] LABS: BASOPHIL 0.6 % (0-2.0); EOSINOPHIL 4.8 % (0-4.5); MCHC 33.5 g/dl (32.0-35.9); MEAN CELL VOLUME 86.5 fl (80-96); MEAN PLT VOLUME 9.2 fl (7.5-11.1); NEUTROPHILS 53.3 % (42.8-82.8); PLATELET COUNT 167 K/MM3 (134-434); RDW 14.3 % (11.9-15.9); WHITE BLOOD COUNT 4.8 K/mm3 (4.0-10.0)
[2016-10-29 08:39] LABS: ALBUMIN 3.6 g/dl (3.4-5.0); ANION GAP 8 (8-16); CALCIUM 9.1 mg/dL (8.5-10.1); CO2 29 mmol/L (21-32); GLUCOSE,RANDOM 261 mg/dL (74-106)
[2016-10-29 08:43] LABS: ALK PHOS 133 U/L (45-117); BILIRUBIN,TOTAL 0.4 mg/dL (0.2-1.0); COCKROFT - GAULT 85.82; CREATININE 1.1 mg/dL (0.7-1.3); SGOT/AST 11 U/L (15-37); SGPT/ALT 24 U/L (12-78); TOT PROT 7.2 g/dl (6.4-8.2)
[2016-10-29] MEDS: oxyCODONE HCL 5 MG TABLET PO PRN ×2 (09:35→23:05)
[2016-10-29] MEDS: RANITIDINE HCL 150 MG TABLET (FP) PO SCH (09:37)
[2016-10-29] MEDS: LORATADINE 10 MG TABLET PO SCH (09:37)
[2016-10-29] MEDS: HEPARIN NA (PORCINE) 5,000 UNITS/ML 1ML VIAL SQ SCH ×2 (09:37→23:06)
[2016-10-29] MEDS: PREGABALIN 75 MG CAPSULE PO SCH ×2 (09:37→23:05)
[2016-10-29] MEDS: MUPIROCIN CA 2% TOPICAL CREAM 15 GM TUBE TP SCH ×2 (09:43→23:06)
--- NOTE | 2016-10-29 12:14 | PN ---
Progress Note, Physician Chief Complaint: nasala sweeling tender to touch says that penile lesion is better and less drainage - Current Medication List Current Medications: Active Medications Acetaminophen (Tylenol -) 325 mg PO Q4H PRN PRN Reason: PAIN Stop: 10/29/16 20:56 Last Admin: 10/27/16 16:39 Dose: 325 mg Acetaminophen (Tylenol -) 650 mg PO Q6H PRN PRN Reason: PAIN Last Admin: 10/28/16 21:09 Dose: 650 mg Albuterol Sulfate (Ventolin 0.083% Nebulizer Soln -) 1 amp NEB Q4H PRN PRN Reason: COUGH Diphenhydramine HCl (Benadryl -) 25 mg PO Q6H PRN PRN Reason: FOR ITCHING Last Admin: 10/28/16 12:28 Dose: 25 mg Heparin Sodium (Porcine) (Heparin -) 5,000 unit SQ BID [facility] Last Admin: 10/29/16 09:37 Dose: 5,000 unit Vancomycin HCl (Vancomycin (Pre-Docked)) 250 mls @ 166.667 mls/hr IVPB Q12H [facility] Last Admin: 10/29/16 02:53 Dose: 166.667 mls/hr Insulin Aspart (Novolog Vial Sliding Scale -) 1 vial SQ ACHS [facility] PRN Reason: Protocol Last Admin: 10/29/16 11:26 Dose: 8 units Insulin Detemir (Levemir Vial) 30 units SQ AM [facility] Last Admin: 10/29/16 06:07 Dose: 30 units Loratadine (Claritin -) 10 mg PO DAILY [facility] Last Admin: 10/29/16 09:37 Dose: 10 mg Mupirocin (Bactroban 2% Cream -) 1 applic TP BID [facility] Last Admin: 10/29/16 09:43 Dose: 1 applic Oxycodone HCl (Roxicodone -) 5 mg PO Q6H PRN PRN Reason: PAIN Last Admin: 10/29/16 09:35 Dose: 5 mg Pregabalin (Lyrica -) 150 mg PO BID [facility] Last Admin: 10/29/16 09:37 Dose: 150 mg Ranitidine HCl (Zantac -) 150 mg PO DAILY [facility] Last Admin: 10/29/16 09:37 Dose: 150 mg - Objective Vital Signs: Vital Signs Temperature 98.5 F 10/29/16 09:28 Pulse Rate 84 10/29/16 09:28 Respiratory Rate 20 10/29/16 09:28 Blood Pressure 123/80 10/29/16 09:28 O2 Sat by Pulse Oximetry (%) 95 10/29/16 09:44 Constitutional: Yes: Calm HENT: Yes: Other (nasal swelling tenderness erythema sinus tnederenss) Neck: Yes: Trachea Midline Cardiovascular: Yes: Regular Rate and Rhythm, S1, S2 Respiratory: Yes: CTA Bilaterally Gastrointestinal: Yes: Normal Bowel Sounds, Soft Edema: No Neurological: Yes: Alert, Oriented Labs: CBC, BMP 10/29/16 07:20 10/29/16 07:20 INR, PTT INR 0.90 (0.82-1.09) 10/26/16 12:22 Problem List - Problems (1) Cellulitis of nose Assessment/Plan: mrsa iv vanco bid ID on board Code(s): J34.0 - ABSCESS, FURUNCLE AND CARBUNCLE OF NOSE (2) Diabetes mellitus, insulin dependent (IDDM), uncontrolled Assessment/Plan: levemir 30 units lyrica for neuropathy Code(s): E10.65 - TYPE 1 DIABETES MELLITUS WITH HYPERGLYCEMIA Qualifiers: Diabetes mellitus complication status: with other specified complication Qualified Code(s): E10.69 - Type 1 diabetes mellitus with other specified complication; E10.65 - Type 1 diabetes mellitus with hyperglycemia (3) AMARJIT (acute kidney injury) Assessment/Plan: bun/cr better today renal ultrasound pending Code(s): N17.9 - ACUTE KIDNEY FAILURE, UNSPECIFIED
[2016-10-29] MEDS ORDERED: PT OWN MED DRAWER 7, Y5N ONE (13:20)
--- NOTE | 2016-10-29 20:51 | PN ---
Progress Note, Physician History of Present Illness: Pt seen and examined at bedside. He is awake and alert. He says he feels better today. - Current Medication List Current Medications: Active Medications Acetaminophen (Tylenol -) 325 mg PO Q4H PRN PRN Reason: PAIN Stop: 10/29/16 20:56 Last Admin: 10/27/16 16:39 Dose: 325 mg Acetaminophen (Tylenol -) 650 mg PO Q6H PRN PRN Reason: PAIN Last Admin: 10/28/16 21:09 Dose: 650 mg Albuterol Sulfate (Ventolin 0.083% Nebulizer Soln -) 1 amp NEB Q4H PRN PRN Reason: COUGH Diphenhydramine HCl (Benadryl -) 25 mg PO Q6H PRN PRN Reason: FOR ITCHING Last Admin: 10/28/16 12:28 Dose: 25 mg Heparin Sodium (Porcine) (Heparin -) 5,000 unit SQ BID [facility] Last Admin: 10/29/16 09:37 Dose: 5,000 unit Vancomycin HCl (Vancomycin (Pre-Docked)) 250 mls @ 166.667 mls/hr IVPB Q12H [facility] Last Admin: 10/29/16 14:49 Dose: 166.667 mls/hr Insulin Aspart (Novolog Vial Sliding Scale -) 1 vial SQ ACHS [facility] PRN Reason: Protocol Last Admin: 10/29/16 17:22 Dose: 7 units Insulin Detemir (Levemir Vial) 30 units SQ AM [facility] Last Admin: 10/29/16 06:07 Dose: 30 units Loratadine (Claritin -) 10 mg PO DAILY [facility] Last Admin: 10/29/16 09:37 Dose: 10 mg Mupirocin (Bactroban 2% Cream -) 1 applic TP BID [facility] Last Admin: 10/29/16 09:43 Dose: 1 applic Oxycodone HCl (Roxicodone -) 5 mg PO Q6H PRN PRN Reason: PAIN Last Admin: 10/29/16 09:35 Dose: 5 mg Pregabalin (Lyrica -) 150 mg PO BID [facility] Last Admin: 10/29/16 09:37 Dose: 150 mg Ranitidine HCl (Zantac -) 150 mg PO DAILY [facility] Last Admin: 10/29/16 09:37 Dose: 150 mg - Objective Vital Signs: Vital Signs Temperature 99.0 F 10/29/16 18:00 Pulse Rate 81 10/29/16 18:00 Respiratory Rate 20 10/29/16 18:00 Blood Pressure 99/74 10/29/16 18:00 O2 Sat by Pulse Oximetry (%) 95 10/29/16 09:44 Constitutional: Yes: Calm Eyes: Yes: Conjunctiva Clear HENT: Yes: Other (cellulitis on nose) Cardiovascular: Yes: S1, S2 Respiratory: Yes: CTA Bilaterally Gastrointestinal: Yes: Normal Bowel Sounds, Soft Genitourinary: Yes: WNL Breast(s): Yes: WNL Musculoskeletal: Yes: WNL Extremities: Yes: WNL Edema: No Neurological: Yes: Oriented Psychiatric: Yes: Oriented Labs: CBC, BMP 10/29/16 07:20 10/29/16 07:20 INR, PTT INR 0.90 (0.82-1.09) 10/26/16 12:22 Assessment/Plan Current Medications Generic Name Dose Route Start Last Admin Trade Name Freq PRN Reason Stop Dose Admin Acetaminophen 325 mg 10/26/16 20:57 10/27/16 16:39 Tylenol - PO 10/29/16 20:56 325 mg Q4H PRN Administration PAIN Acetaminophen 650 mg 10/26/16 21:10 10/28/16 21:09 Tylenol - PO 650 mg Q6H PRN Administration PAIN Albuterol Sulfate 1 amp 10/26/16 17:39 Ventolin 0.083% Nebulizer Soln - NEB Q4H PRN COUGH Diphenhydramine HCl 25 mg 10/27/16 14:27 10/28/16 12:28 Benadryl - PO 25 mg Q6H PRN Administration FOR ITCHING Heparin Sodium (Porcine) 5,000 unit 10/28/16 10:00 10/29/16 09:37 Heparin - SQ 5,000 unit BID [facility] Administration Vancomycin HCl 250 mls @ 166.667 mls/hr 10/28/16 14:00 10/29/16 14:49 Vancomycin (Pre-Docked) IVPB 166.667 mls/hr Q12H [facility] Administration Insulin Aspart 1 vial 10/27/16 17:04 10/29/16 17:22 Novolog Vial Sliding Scale - SQ 7 units ACHS [facility]UAN Administration Protocol Insulin Detemir 30 units 10/29/16 07:00 10/29/16 06:07 Levemir Vial SQ 30 units AM [facility] Administration Loratadine 10 mg 10/27/16 10:00 10/29/16 09:37 Claritin - PO 10 mg DAILY [facility] Administration Mupirocin 1 applic 10/27/16 22:00 10/29/16 09:43 Bactroban 2% Cream - TP 1 applic BID JUAN Administration Oxycodone HCl 5 mg 10/26/16 21:12 10/29/16 09:35 Roxicodone - PO 5 mg Q6H PRN Administration PAIN Pregabalin 150 mg 10/26/16 22:30 10/29/16 09:37 Lyrica - PO 150 mg BID [facility]UAN Administration Ranitidine HCl 150 mg 10/27/16 10:00 10/29/16 09:37 Zantac - PO 150 mg DAILY [facility] Administration Impression 1. AMARJIT resolved 2. cellulitis 3. DM 4. hypernatremia Plan - renal funciton is stable - will see pt in office - bactrim may have contributed to elevated creatinine, it is now stopped - will repeat ua as outpt - chart, labs and meds reviewed Dr Us
[2016-10-29] MEDS: ACETAMINOPHEN 325 MG TABLET (FP) PO PRN (23:05)
[2016-10-30] MEDS: VANCOMYCIN 1 GRAM (PRE-DOCKED) 250 ML IVPB SCH ×2 (02:49→14:47)
[2016-10-30] MEDS: INSULIN DETEMIR 100 UNITS/ML MDV SQ SCH (06:58)
[2016-10-30] MEDS: INSULIN SLIDING SCALE (NOVOLOG) 1 VIAL SQ SCH ×2 (06:59→12:07)
[2016-10-30] MEDS ORDERED: PT OWN MED DRAWER 7, Y5N ONE (09:23)
[2016-10-30] MEDS: HEPARIN NA (PORCINE) 5,000 UNITS/ML 1ML VIAL SQ SCH (09:24)
[2016-10-30] MEDS: LORATADINE 10 MG TABLET PO SCH (09:24)
[2016-10-30] MEDS: RANITIDINE HCL 150 MG TABLET (FP) PO SCH (09:24)
[2016-10-30] MEDS: PREGABALIN 75 MG CAPSULE PO SCH (09:24)
--- NOTE | 2016-10-30 11:20 | DS ---
Physical Examination Vital Signs: Vital Signs Temperature 98.1 F 10/30/16 09:18 Pulse Rate 81 10/30/16 09:18 Respiratory Rate 20 10/30/16 09:18 Blood Pressure 127/70 10/30/16 09:18 O2 Sat by Pulse Oximetry (%) 95 10/29/16 22:00 Constitutional: Yes: Calm HENT: Yes: Other (nasal swelling and erythema decreased no tenderness today) Cardiovascular: Yes: Regular Rate and Rhythm, S1, S2 Respiratory: Yes: CTA Bilaterally Gastrointestinal: Yes: Normal Bowel Sounds, Soft Edema: No Neurological: Yes: Alert, Oriented Labs: CBC, BMP 10/29/16 07:20 10/29/16 07:20 Discharge Summary Reason For Visit: UNCONTROLLED TYPE 1 DM,CELLULITIS OF NOSE Current Active Problems AMARJIT (acute kidney injury) (Acute) COPD (chronic obstructive pulmonary disease) (Acute) Cellulitis (Acute) Cellulitis of nose (Acute) Diabetes mellitus, insulin dependent (IDDM), uncontrolled (Acute) Hospital Course: 60yM hx of IDDM, COPD, HTN, HL, neuropathy represents with nsal pain - [place] [facility] [place] nodules/furuncles on his L armpit and on his penis and mild swelling/pain on his nose - he was treated with bactrim as outpatient - the nodules improved, but the swelling on his nose has worsened and pt feels generally weak. pt denies any fevers, discharge. cultures sent of penile lesion MRSA positive and wants to go home today nasal swelling and erythema decreased on iv vancomycin - Instructions Referrals: Shmuel Balderas MD [Primary Care Provider] - Disposition: HOME - Home Medications Comprehensive Discharge Medication List: Ambulatory Orders Insulin Pump Cartridge [Omnipod] 1 each SQ DAILY 08/25/13 Omeprazole [Prilosec (RX)] 40 mg PO DAILY 03/07/15 Pregabalin [Lyrica] 150 mg PO BID 11/22/15 Albuterol 0.083% Nebulizer Rose Marie [Ventolin 0.083% Nebulizer Soln -] 1 neb NEB Q4H PRN #30 vial 07/24/16 Albuterol Sulfate Inhaler - [Ventolin HFA Inhaler -] 2 inh PO Q4H PRN #1 inh 10/05 Sulfamethoxazole/Trimethoprim [Bactrim Ds -] 1 tab PO BID #10 tablet 10/23/16 Famotidine [Pepcid] 20 mg PO PRN PRN 10/26/16
--- NOTE | 2016-10-30 11:28 | PN ---
Progress Note, Physician Chief Complaint: MRSA in penile lesion isolate patient on iv vnacomycin nasal erythema and swelling tendernes improved no fever no WBC - Current Medication List Current Medications: Active Medications Acetaminophen (Tylenol -) 650 mg PO Q6H PRN PRN Reason: PAIN Last Admin: 10/29/16 23:05 Dose: 650 mg Albuterol Sulfate (Ventolin 0.083% Nebulizer Soln -) 1 amp NEB Q4H PRN PRN Reason: COUGH Diphenhydramine HCl (Benadryl -) 25 mg PO Q6H PRN PRN Reason: FOR ITCHING Last Admin: 10/28/16 12:28 Dose: 25 mg Heparin Sodium (Porcine) (Heparin -) 5,000 unit SQ BID [facility] Last Admin: 10/30/16 09:24 Dose: 5,000 unit Vancomycin HCl (Vancomycin (Pre-Docked)) 250 mls @ 166.667 mls/hr IVPB Q12H [facility] Last Admin: 10/30/16 02:49 Dose: 166.667 mls/hr Insulin Aspart (Novolog Vial Sliding Scale -) 1 vial SQ ACHS [facility] PRN Reason: Protocol Last Admin: 10/30/16 06:59 Dose: 5 units Insulin Detemir (Levemir Vial) 30 units SQ AM [facility] Last Admin: 10/30/16 06:58 Dose: 30 units Loratadine (Claritin -) 10 mg PO DAILY [facility] Last Admin: 10/30/16 09:24 Dose: 10 mg Mupirocin (Bactroban 2% Cream -) 1 applic TP BID [facility] Last Admin: 10/29/16 23:06 Dose: 1 applic Oxycodone HCl (Roxicodone -) 5 mg PO Q6H PRN PRN Reason: PAIN Last Admin: 10/29/16 23:05 Dose: 5 mg Pregabalin (Lyrica -) 150 mg PO BID [facility] Last Admin: 10/30/16 09:24 Dose: 150 mg Ranitidine HCl (Zantac -) 150 mg PO DAILY [facility] Last Admin: 10/30/16 09:24 Dose: 150 mg - Objective Vital Signs: Vital Signs Temperature 98.1 F 10/30/16 09:18 Pulse Rate 81 10/30/16 09:18 Respiratory Rate 20 10/30/16 09:18 Blood Pressure 127/70 10/30/16 09:18 O2 Sat by Pulse Oximetry (%) 95 10/29/16 22:00 Constitutional: Yes: Calm HENT: Yes: Other (nasal erythema and swelling improved) Neck: Yes: Trachea Midline Cardiovascular: Yes: Regular Rate and Rhythm, S1, S2 Respiratory: Yes: CTA Bilaterally Gastrointestinal: Yes: Normal Bowel Sounds, Soft Edema: No Neurological: Yes: Alert, Oriented Labs: CBC, BMP 10/29/16 07:20 10/29/16 07:20 INR, PTT INR 0.90 (0.82-1.09) 10/26/16 12:22 Problem List - Problems (1) Furuncle of penis Assessment/Plan: MRSA informed ID isolate patient wants to go home- will have ID see patient to decide po abx Code(s): N48.21 - ABSCESS OF CORPUS CAVERNOSUM AND PENIS (2) Cellulitis of nose Assessment/Plan: mrsa iv vanco bid ID on board to FU regarding po abx bactrim had elevated creatinine Code(s): J34.0 - ABSCESS, FURUNCLE AND CARBUNCLE OF NOSE (3) Diabetes mellitus, insulin dependent (IDDM), uncontrolled Assessment/Plan: insulin Code(s): E10.65 - TYPE 1 DIABETES MELLITUS WITH HYPERGLYCEMIA Qualifiers: Diabetes mellitus complication status: with other specified complication Qualified Code(s): E10.69 - Type 1 diabetes mellitus with other specified complication; E10.65 - Type 1 diabetes mellitus with hyperglycemia (4) AMARJIT (acute kidney injury) Assessment/Plan: bun/cr better today renal ultrasound noted for left small renal cyst 2mm Code(s): N17.9 - ACUTE KIDNEY FAILURE, UNSPECIFIED
--- NOTE | 2016-10-30 14:06 | PN ---
Progress Note, Physician History of Present Illness: No complaints Significant improvement in nasal cellulitis Penile shaft lesion resolved No fever/ chills - Current Medication List Current Medications: Active Medications Acetaminophen (Tylenol -) 650 mg PO Q6H PRN PRN Reason: PAIN Last Admin: 10/29/16 23:05 Dose: 650 mg Albuterol Sulfate (Ventolin 0.083% Nebulizer Soln -) 1 amp NEB Q4H PRN PRN Reason: COUGH Diphenhydramine HCl (Benadryl -) 25 mg PO Q6H PRN PRN Reason: FOR ITCHING Last Admin: 10/28/16 12:28 Dose: 25 mg Heparin Sodium (Porcine) (Heparin -) 5,000 unit SQ BID [facility] Last Admin: 10/30/16 09:24 Dose: 5,000 unit Vancomycin HCl (Vancomycin (Pre-Docked)) 250 mls @ 166.667 mls/hr IVPB Q12H [facility] Last Admin: 10/30/16 02:49 Dose: 166.667 mls/hr Insulin Aspart (Novolog Vial Sliding Scale -) 1 vial SQ ACHS [facility] PRN Reason: Protocol Last Admin: 10/30/16 12:07 Dose: 8 units Insulin Detemir (Levemir Vial) 30 units SQ AM [facility] Last Admin: 10/30/16 06:58 Dose: 30 units Loratadine (Claritin -) 10 mg PO DAILY [facility] Last Admin: 10/30/16 09:24 Dose: 10 mg Mupirocin (Bactroban 2% Cream -) 1 applic TP BID [facility] Last Admin: 10/29/16 23:06 Dose: 1 applic Oxycodone HCl (Roxicodone -) 5 mg PO Q6H PRN PRN Reason: PAIN Last Admin: 10/29/16 23:05 Dose: 5 mg Pregabalin (Lyrica -) 150 mg PO BID [facility] Last Admin: 10/30/16 09:24 Dose: 150 mg Ranitidine HCl (Zantac -) 150 mg PO DAILY [facility] Last Admin: 10/30/16 09:24 Dose: 150 mg - Objective Vital Signs: Vital Signs Temperature 98.1 F 10/30/16 09:18 Pulse Rate 81 10/30/16 09:18 Respiratory Rate 20 10/30/16 09:18 Blood Pressure 127/70 10/30/16 09:18 O2 Sat by Pulse Oximetry (%) 95 10/29/16 22:00 Constitutional: Yes: No Distress Eyes: Yes: Conjunctiva Clear HENT: Yes: Other (nasal erythema/swelling nearly all resolved) Cardiovascular: Yes: Regular Rate and Rhythm, S1, S2 Respiratory: Yes: CTA Bilaterally Gastrointestinal: Yes: Normal Bowel Sounds, Soft. No: Tenderness Labs: CBC, BMP 10/29/16 07:20 10/29/16 07:20 INR, PTT INR 0.90 (0.82-1.09) 10/26/16 12:22 Assessment/Plan Cellulitis, bridge of nose Penile shaft lesion + MRSA wound c/s OK for discharge on oral antibiotics Resume Bactrim DS po bid x 3days
--- NOTE | 2016-10-30 15:29 | PN ---
Progress Note, Physician History of Present Illness: Pt seen and examined at bedside. He is awake and alert. He denies dysuria or hematuria. - Current Medication List Current Medications: Active Medications Acetaminophen (Tylenol -) 650 mg PO Q6H PRN PRN Reason: PAIN Last Admin: 10/29/16 23:05 Dose: 650 mg Albuterol Sulfate (Ventolin 0.083% Nebulizer Soln -) 1 amp NEB Q4H PRN PRN Reason: COUGH Diphenhydramine HCl (Benadryl -) 25 mg PO Q6H PRN PRN Reason: FOR ITCHING Last Admin: 10/28/16 12:28 Dose: 25 mg Heparin Sodium (Porcine) (Heparin -) 5,000 unit SQ BID [facility] Last Admin: 10/30/16 09:24 Dose: 5,000 unit Vancomycin HCl (Vancomycin (Pre-Docked)) 250 mls @ 166.667 mls/hr IVPB Q12H [facility] Last Admin: 10/30/16 14:47 Dose: Not Given Insulin Aspart (Novolog Vial Sliding Scale -) 1 vial SQ ACHS [facility] PRN Reason: Protocol Last Admin: 10/30/16 12:07 Dose: 8 units Insulin Detemir (Levemir Vial) 30 units SQ AM [facility] Last Admin: 10/30/16 06:58 Dose: 30 units Loratadine (Claritin -) 10 mg PO DAILY [facility] Last Admin: 10/30/16 09:24 Dose: 10 mg Mupirocin (Bactroban 2% Cream -) 1 applic TP BID [facility] Last Admin: 10/29/16 23:06 Dose: 1 applic Oxycodone HCl (Roxicodone -) 5 mg PO Q6H PRN PRN Reason: PAIN Last Admin: 10/29/16 23:05 Dose: 5 mg Pregabalin (Lyrica -) 150 mg PO BID [facility] Last Admin: 10/30/16 09:24 Dose: 150 mg Ranitidine HCl (Zantac -) 150 mg PO DAILY [facility] Last Admin: 10/30/16 09:24 Dose: 150 mg - Objective Vital Signs: Vital Signs Temperature 98.1 F 10/30/16 09:18 Pulse Rate 81 10/30/16 09:18 Respiratory Rate 20 10/30/16 09:18 Blood Pressure 127/70 10/30/16 09:18 O2 Sat by Pulse Oximetry (%) 95 10/29/16 22:00 Constitutional: Yes: Calm Eyes: Yes: Conjunctiva Clear Neck: Yes: Supple Cardiovascular: Yes: S1, S2 Respiratory: Yes: CTA Bilaterally Gastrointestinal: Yes: Soft Genitourinary: Yes: WNL Edema: No Labs: CBC, BMP 10/29/16 07:20 10/29/16 07:20 INR, PTT INR 0.90 (0.82-1.09) 10/26/16 12:22 Problem List - Problems (1) COPD (chronic obstructive pulmonary disease) Code(s): J44.9 - CHRONIC OBSTRUCTIVE PULMONARY DISEASE, UNSPECIFIED (2) Cellulitis of nose Code(s): J34.0 - ABSCESS, FURUNCLE AND CARBUNCLE OF NOSE (3) Diabetes mellitus, insulin dependent (IDDM), uncontrolled Code(s): E10.65 - TYPE 1 DIABETES MELLITUS WITH HYPERGLYCEMIA Qualifiers: Diabetes mellitus complication status: with other specified complication Qualified Code(s): E10.69 - Type 1 diabetes mellitus with other specified complication; E10.65 - Type 1 diabetes mellitus with hyperglycemia Assessment/Plan Current Medications Generic Name Dose Route Start Last Admin Trade Name Freq PRN Reason Stop Dose Admin Acetaminophen 650 mg 10/26/16 21:10 10/29/16 23:05 Tylenol - PO 650 mg Q6H PRN Administration PAIN Albuterol Sulfate 1 amp 10/26/16 17:39 Ventolin 0.083% Nebulizer Soln - NEB Q4H PRN COUGH Diphenhydramine HCl 25 mg 10/27/16 14:27 10/28/16 12:28 Benadryl - PO 25 mg Q6H PRN Administration FOR ITCHING Heparin Sodium (Porcine) 5,000 unit 10/28/16 10:00 10/30/16 09:24 Heparin - SQ 5,000 unit BID [facility] Administration Vancomycin HCl 250 mls @ 166.667 mls/hr 10/28/16 14:00 10/30/16 14:47 Vancomycin (Pre-Docked) IVPB Not Given Q12H [facility] Insulin Aspart 1 vial 10/27/16 17:04 10/30/16 12:07 Novolog Vial Sliding Scale - SQ 8 units ACHS [facility] Administration Protocol Insulin Detemir 30 units 10/29/16 07:00 10/30/16 06:58 Levemir Vial SQ 30 units AM [facility] Administration Loratadine 10 mg 10/27/16 10:00 10/30/16 09:24 Claritin - PO 10 mg DAILY [facility] Administration Mupirocin 1 applic 10/27/16 22:00 10/29/16 23:06 Bactroban 2% Cream - TP 1 applic BID [facility] Administration Oxycodone HCl 5 mg 10/26/16 21:12 10/29/16 23:05 Roxicodone - PO 5 mg Q6H PRN Administration PAIN Pregabalin 150 mg 10/26/16 22:30 10/30/16 09:24 Lyrica - PO 150 mg BID [facility]UAN Administration Ranitidine HCl 150 mg 10/27/16 10:00 10/30/16 09:24 Zantac - PO 150 mg DAILY [facility] Administration Impression 1. AMARJIT resolved 2. cellulitis 3. DM 4. hypernatremia Plan - no new labs - will see pt in office - will check bmp and ua as outpt Dr Us
[2016-10-30 15:43] VITALS: BP 119/77; PULSE 113; TEMP 98.6
== END 2016-10-30 15:55 | disposition home or self-care (01) | DRG 155 ==
LOC: JER 10:44 → JERBED 15:49 → J5S 17:40
PROVIDERS: ADMIT Family Medicine; ATTEND Family Medicine
DX: J34.0 Abscess, furuncle and carbuncle of nose (principal); N17.9 Acute kidney failure, unspecified; E87.0 Hyperosmolality and hypernatremia; L03.211 Cellulitis of face; E10.65 Type 1 diabetes mellitus with hyperglycemia; J44.9 Chronic obstructive pulmonary disease, unspecified; E78.5 Hyperlipidemia, unspecified; I10 Essential (primary) hypertension; G62.9 Polyneuropathy, unspecified; Z79.4 Long term (current) use of insulin; Z72.0 Tobacco use
CPT/HCPCS: 36415; 70487-TC; 71020-TC; 76775-TC; 80053; 81003; 82570; 83605; 84156; 84300; 85025; 85610; 86593; 87040; 87070; 87081; 87186; 87205; 94640; 96365; 96367; 99283-25; 99284-25; G0480; J1644

== ENCOUNTER 2016-12-22 20:21 | Inpatient (IN) | payer OTHER ==
--- NOTE | 2016-12-22 20:46 | PDOC ---
History of Present Illness - General History Source: Patient Exam Limitations: No Limitations - History of Present Illness Initial Comments: 12/22/16 21:11 The patient is a 60-year-old male with a significant past medical history of IDDM with indwelling pump, with peripheral neuropathy, COPD, HTN, HLD, GERD, and Lymes disease, and presents to the emergency department with chest pain and difficulty breathing today. He reports the chest pain is bilateral, but worse on the right side, and non-radiating. He states the chest pain is worsened with coughing and inspiration. He denies taking any medication for his chest pain. He reports a subjective fever for the one day, which is not present upon interview. He reports associated sweating, and swelling and cramps in his legs. He states he has just finished his series of steroids and the pain worsened afterwards. The patient denies headache and dizziness. The patient denies chills, abdominal pain, nausea, vomit, diarrhea and constipation. The patient denies flank pain, dysuria, frequency, urgency and hematuria. Allergies: dust, grass Past Surgical History: angioplasty Social History: former smoker PCP: Dr. Balderas <Maryan Anthony - Last Filed: 12/22/16 21:57> <Gloria Tee - Last Filed: 12/23/16 00:46> - General Chief Complaint: Chest Pain Stated Complaint: DIFF BREATHING/CHEST PAIN Time Seen by Provider: 12/22/16 20:34 Past History <Maryan Anthony - Last Filed: 12/22/16 21:57> - Past Medical History Anemia: Yes Asthma: Yes Cancer: No Cardiac Disorders: Yes (HAD ANGIOPLASTYx2 no stent) CVA: No COPD: Yes CHF: No Dementia: No Diabetes: Yes (IDDM-INSULIN PUMP) GI Disorders: Yes (GERD) Disorders: No HTN: No Hypercholesterolemia: Yes Liver Disease: (PANCREAS PROBLEM) Suicide Attempt (Hx): No Seizures: No Thyroid Disease: No - Surgical History Abdominal Surgery: No Appendectomy: No Cardiac Surgery: Yes (ANGIOPLASTY) Cholecystectomy: No Lung Surgery: No Neurologic Surgery: No Orthopedic Surgery: No - Immunization History Immunization Up to Date: Yes - Psycho/Social/Smoking Cessation Hx Anxiety: No Suicidal Ideation: No Smoking Status: Yes Smoking History: Unknown if ever smoked Have you smoked in the past 12 months: No Number of Cigarettes Smoked Daily: 5 If you are a former smoker, when did you quit?: SEPTEMBER 2015 Information on smoking cessation initiated: No 'Breaking Loose' booklet given: 10/23/16 Hx Alcohol Use: No Drug/Substance Use Hx: No Substance Use Type: None, Marijuana Hx Substance Use Treatment: No <Gloria Tee - Last Filed: 12/23/16 00:46> - Past Medical History Allergies/Adverse Reactions: Allergies Allergy/AdvReac Type Severity Reaction Status Date / Time No Known Drug Allergies Allergy Verified 12/22/16 20:40 DUST Allergy Mild Uncoded 12/22/16 20:40 GRASS Allergy Mild Uncoded 12/22/16 20:40 Home Medications: Ambulatory Orders Insulin Pump Cartridge [Omnipod] 1 each SQ DAILY 08/25/13 Omeprazole [Prilosec (RX)] 40 mg PO DAILY 03/07/15 Pregabalin [Lyrica] 150 mg PO BID 11/22/15 Albuterol 0.083% Nebulizer Rose Marie [Ventolin 0.083% Nebulizer Soln -] 1 neb NEB Q4H PRN #30 vial 07/24/16 Albuterol Sulfate Inhaler - [Ventolin HFA Inhaler -] 2 inh PO Q4H PRN #1 inh 10/05 Review of Systems - Review of Systems Able to Perform ROS?: Yes Comments:: 12/22/16 21:11 CONSTITUTIONAL: Present: (+) diaphoresis Absent: fever, chills, generalized weakness, malaise, loss of appetite HEENT: Absent: rhinorrhea, nasal congestion, throat pain, throat swelling, difficulty swallowing, mouth swelling, ear pain, eye pain, visual changes CARDIOVASCULAR: Present: (+) chest pain, (+) peripheral edema Absent: syncope, palpitations, irregular heart rate, lightheadedness RESPIRATORY: Present: (+) cough, (+) shortness of breath Absent: dyspnea with exertion, orthopnea, wheezing, stridor, hemoptysis GASTROINTESTINAL: Absent: abdominal pain, abdominal distension, nausea, vomiting, diarrhea, constipation, melena, hematochezia GENITOURINARY: Absent: dysuria, frequency, urgency, hesitancy, hematuria, flank pain, genital pain MUSCULOSKELETAL: Absent: myalgia, arthralgia, joint swelling SKIN: Absent: rash, itching, pallor HEMATOLOGIC/IMMUNOLOGIC: Absent: easy bleeding, easy bruising, lymphadenopathy, frequent infections ENDOCRINE: Absent: unexplained weight gain, unexplained weight loss, heat intolerance, cold intolerance NEUROLOGIC: Absent: headache, focal weakness or paresthesias, dizziness, unsteady gait, seizure, mental status changes, bladder or bowel incontinence PSYCHIATRIC: Absent: anxiety, depression, suicidal or homicidal ideation, hallucinations. <Maryan Anthony - Last Filed: 12/22/16 21:57> *Physical Exam - Vital Signs Last Vital Signs Temp Pulse Resp BP Pulse Ox 97.3 F L 113 H 22 136/97 94 L 12/22/16 20:40 12/22/16 20:40 12/22/16 20:40 12/22/16 20:40 12/22/16 20:40 - Physical Exam Comments: 12/22/16 21:15 GENERAL: Well developed, well nourished. Awake and alert. No acute distress. HEENT: Normocephalic, atraumatic. PERRLA, EOMI. No conjunctival pallor. Sclera are non- icteric. Moist mucous membranes. Oropharynx is clear. NECK: Supple. Full ROM. No JVD. Carotid pulses 2+ and symmetric, without bruits. No thyromegaly. No lymphadenopathy. CARDIOVASCULAR: Regular rate and rhythm. No murmurs, rubs, or gallops. Distal pulses are 2+ and symmetric. PULMONARY: (+) Decreased breath sounds at the left base. No wheezing, rales or rhonchi. ABDOMINAL: Soft. Non-tender. Non-distended. No rebound or guarding. No organomegaly. Normoactive bowel sounds. MUSCULOSKELETAL (+) Muscular tenderness at the right lower ribs. Normal range of motion at all joints. No bony deformities. No CVA tenderness. EXTREMITIES: No cyanosis. No clubbing. No pitting edema bilaterally. No calf tenderness. SKIN: Warm and dry. Normal capillary refill. No rashes. No jaundice. NEUROLOGICAL: Alert, awake, appropriate. Cranial nerves 2-12 intact. No deficits to light touch and temperature in face, upper extremities and lower extremities. No motor deficits in the in face, upper extremities and lower extremities. Normoreflexic in the upper and lower extremities. Normal speech. Toes are down- going bilaterally. Gait is normal without ataxia. PSYCHIATRIC: Cooperative. Good eye contact. Appropriate mood and affect. <Maryan Anthony - Last Filed: 12/22/16 21:57> - Vital Signs Last Vital Signs Temp Pulse Resp BP Pulse Ox 97.3 F L 113 H 22 136/97 94 L 12/22/16 20:40 12/22/16 20:40 12/22/16 20:40 12/22/16 20:40 12/22/16 20:40 <Gloria Tee - Last Filed: 12/23/16 00:46> ED Treatment Course - LABORATORY CBC & Chemistry Diagram: 12/22/16 21:15 12/22/16 21:15 <Maryan Anthony - Last Filed: 12/22/16 21:57> - LABORATORY CBC & Chemistry Diagram: 12/22/16 21:15 12/22/16 21:15 <Gloria Tee - Last Filed: 12/23/16 00:46> Medical Decision Making - Medical Decision Making 12/23/16 00:43 Pt comes with COPD exacerbation, tachycardia, cough, right chest wall pain and DM (well controlled with insulin pump) Pt seems to have a retrocardiac infiltrate, when compared to his last CXR. Pt will be admitted to [facility] associate Dr. Hernandez. We will teat with basic abx for a community acquired pneumonia. 12/23/16 00:46 cardiac enzymes and EKG are normal. <Gloria Tee - Last Filed: 12/23/16 00:46> *DC/Admit/Observation/Transfer - Attestations Scribe Attestion: 12/22/16 21:12 Documentation prepared by Maryan Anthony, acting as medical claims analyst for Gloria Tee MD. <Maryan Anthony - Last Filed: 12/22/16 21:57> - Discharge Dispostion Admit: Yes <Gloria Tee - Last Filed: 12/23/16 00:46> Diagnosis at time of Disposition: Asthma exacerbation in COPD, COPD exacerbation, Bronchitis, Chest pain, Tachycardia - Discharge Dispostion Condition at time of disposition: Guarded
[2016-12-22] MEDS ORDERED: OXYCODONE/APAP 5/325MG COMBO TABLET PO ONE (20:57)
[2016-12-22] MEDS ORDERED: ASPIRIN 81 MG CHEWABLE TABLETS PO ONE (20:58)
[2016-12-22] MEDS ORDERED: ALBUTEROL SO4 2.5/IPRATROPIUM 0.5 INH SOL 3 ML VIAL.NEB. NEB ONE ×2 (20:58→21:22)
[2016-12-22] MEDS ORDERED: SODIUM CHLORIDE 0.9% 500 ML INFUS.BAG IV ONE (20:59)
[2016-12-22] MEDS ORDERED: ASPIRIN 81 MG CHEWABLE TABLETS ONE (21:22)
[2016-12-22] MEDS ORDERED: OXYCODONE/APAP 5/325MG COMBO TABLET ONE ×2 (21:22→21:34)
[2016-12-22 21:24] LABS: BASOPHIL 0.6 % (0-2.0); EOSINOPHIL 1.1 % (0-4.5); MCH 28.2 pg (25.7-33.7); MCHC 32.9 g/dl (32.0-35.9); MEAN CELL VOLUME 85.8 fl (80-96); MEAN PLT VOLUME 8.7 fl (7.5-11.1); NEUTROPHILS 78.8 % (42.8-82.8); PLATELET COUNT 233 K/MM3 (134-434); RDW 13.8 % (11.9-15.9); WHITE BLOOD COUNT 14.3 K/mm3 (4.0-10.0)
[2016-12-22 21:59] LABS: ALBUMIN 3.9 g/dl (3.4-5.0); BILIRUBIN,TOTAL 0.5 mg/dL (0.2-1.0); CALCIUM 9.3 mg/dL (8.5-10.1); COCKROFT - GAULT 74.58; CREATININE 1.3 mg/dL (0.7-1.3); TOT PROT 7.6 g/dl (6.4-8.2)
[2016-12-22] MEDS ORDERED: CEFTRIAXONE 1 GM in DEXTROSE 5%-WATER - 50 ML IVPB ONE (22:55)
[2016-12-22] MEDS ORDERED: AZITHROMYCIN IVPB 500 MG in DEXTROSE 5%-WATER - 250 ML IVPB ONE (22:55)
[2016-12-22] MEDS ORDERED: AZITHROMYCIN IVPB 250 ML IVPB ONE (23:04)
[2016-12-22] MEDS ORDERED: CEFTRIAXONE 50 ML ONE (23:04)
[2016-12-23 00:43] LABS: TROPONIN I < 0.02 ng/ml (0.00-0.05)
[2016-12-23] MEDS ORDERED: ALBUTEROL SO4 0.083% IH SOL 2.5 MG/3 ML VIAL.NEB. NEB PRN (01:04)
[2016-12-23] MEDS ORDERED: ALBUTEROL SO4 0.083% IH SOL 2.5 MG/3 ML VIAL.NEB. NEB ONE (03:03)
[2016-12-23 06:18] LABS: MCH 28.8 pg (25.7-33.7); MCHC 33.2 g/dl (32.0-35.9); MEAN CELL VOLUME 86.8 fl (80-96); MEAN PLT VOLUME 8.7 fl (7.5-11.1); PLATELET COUNT 202 K/MM3 (134-434); RDW 14.1 % (11.9-15.9); WHITE BLOOD COUNT 9.1 K/mm3 (4.0-10.0)
[2016-12-23 07:06] LABS: ALBUMIN 3.3 g/dl (3.4-5.0); ANION GAP 4 (8-16); CALCIUM 8.4 mg/dL (8.5-10.1); CO2 31 mmol/L (21-32); COCKROFT - GAULT 88.14; CREATININE 1.1 mg/dL (0.7-1.3); GLUCOSE,RANDOM 175 mg/dL (74-106); SGOT/AST 20 U/L (15-37); SGPT/ALT 30 U/L (12-78)
[2016-12-23 07:08] LABS: ALK PHOS 106 U/L (45-117); BILIRUBIN,TOTAL 0.4 mg/dL (0.2-1.0); TOT PROT 6.7 g/dl (6.4-8.2)
[2016-12-23 07:09] LABS: TROPONIN I < 0.02 ng/ml (0.00-0.05)
[2016-12-23] MEDS ORDERED: PREGABALIN 50 MG CAPSULE ONE (10:05)
[2016-12-23] MEDS ORDERED: PREGABALIN 100 MG CAPSULE ONE (10:06)
--- NOTE | 2016-12-23 10:06 | HP ---
Admitting History and Physical - Admission History of Present Illness: 60 year-old male with a significant past medical history of IDDM with indwelling pump, with peripheral neuropathy, COPD, HTN, HLD, GERD, and Lymes disease, and presents to the emergency department with chest pain and difficulty breathing . He reports the chest pain is bilateral, but worse on the right side, and non-radiating. He states the chest pain is worsened with coughing and inspiration. He denies taking any medication for his chest pain. He reports a subjective fever for the one day. He reports associated sweating, and swelling and cramps in his legs. He states he has just finished his series of steroids and the pain worsened afterwards. PT C/O CHEST PAIN ON EXERTION - Past Medical History Cardiovascular: Yes: HTN, Hyperlipdemia Endocrine: Yes: Diabetes Mellitus - Smoking History Smoking history: Unknown if ever smoked Have you smoked in the past 12 months: No Aproximately how many cigarettes per day: 5 If you are a former smoker, when did you quit?: SEPTEMBER 2015 - Alcohol/Substance Use Hx Alcohol Use: No Home Medications - Allergies Allergies/Adverse Reactions: Allergies Allergy/AdvReac Type Severity Reaction Status Date / Time No Known Drug Allergies Allergy Verified 12/22/16 20:40 DUST Allergy Mild Uncoded 12/22/16 20:40 GRASS Allergy Mild Uncoded 12/22/16 20:40 - Home Medications Home Medications: Ambulatory Orders Insulin Pump Cartridge [Omnipod] 1 each SQ DAILY 08/25/13 Omeprazole [Prilosec (RX)] 40 mg PO DAILY 03/07/15 Pregabalin [Lyrica] 150 mg PO BID 11/22/15 Albuterol 0.083% Nebulizer Rose Marie [Ventolin 0.083% Nebulizer Soln -] 1 neb NEB Q4H PRN #30 vial 07/24/16 Albuterol Sulfate Inhaler - [Ventolin HFA Inhaler -] 2 inh PO Q4H PRN #1 inh 10/05 Simvastatin 10 mg PO DAILY 12/23/16 Review of Systems - Review of Systems Cardiovascular: reports: Chest Pain Respiratory: reports: Cough, SOB, SOB on Exertion Physical Examination Vital Signs: Vital Signs Temperature 98.4 F 12/23/16 07:23 Pulse Rate 55 L 12/23/16 07:23 Respiratory Rate 19 12/23/16 03:30 Blood Pressure 133/68 12/23/16 07:23 O2 Sat by Pulse Oximetry (%) 97 12/23/16 07:35 Cardiovascular: Yes: Regular Rate and Rhythm Respiratory: Yes: Diminished, On Nasal O2, Rales (rt base), Rhonchi, Wheezes Gastrointestinal: Yes: Normal Bowel Sounds, Soft Edema: No Labs: CBC, BMP 12/23/16 06:10 12/23/16 06:10 Problem List - Problems (1) Asthma exacerbation in COPD Assessment/Plan: IV STEROIDS NEBS CT OF CHEST Code(s): J44.1 - CHRONIC OBSTRUCTIVE PULMONARY DISEASE W (ACUTE) EXACERBATION J45.901 - UNSPECIFIED ASTHMA WITH (ACUTE) EXACERBATION (2) Bronchitis Assessment/Plan: ABX CT OF CHEST Code(s): J40 - BRONCHITIS, NOT SPECIFIED ACUTE OR CHRONIC (3) Chest pain Assessment/Plan: FOLLOW CE TEL CARDIO STRESS TEST CTA Code(s): R07.9 - CHEST PAIN, UNSPECIFIED (4) Diabetes mellitus, insulin dependent (IDDM), uncontrolled Assessment/Plan: BGM INSULIN\ ENDO Code(s): E10.65 - TYPE 1 DIABETES MELLITUS WITH HYPERGLYCEMIA Qualifiers: Diabetes mellitus complication status: with other specified complication Qualified Code(s): E10.69 - Type 1 diabetes mellitus with other specified complication; E10.65 - Type 1 diabetes mellitus with hyperglycemia (5) Pneumonia Assessment/Plan: CT ABX Code(s): J18.9 - PNEUMONIA, UNSPECIFIED ORGANISM
[2016-12-23] MEDS ORDERED: CEFTRIAXONE 1 GM in DEXTROSE 5%-WATER - 100 ML IVPB SCH (10:15)
[2016-12-23] MEDS: ASPIRIN COATED 81 MG TABLET.EC PO SCH (10:31)
[2016-12-23] MEDS: PREGABALIN 100 MG CAPSULE PO SCH ×2 (10:31→22:08)
[2016-12-23] MEDS: PANTOPRAZOLE 40 MG TABLET (FP) PO SCH (10:31)
[2016-12-23] MEDS ORDERED: methylPREDNISolone NA SUCC 40 MG/1 ML VIAL ONE (10:44)
[2016-12-23] MEDS ORDERED: CEFTRIAXONE 50 ML ONE (10:44)
[2016-12-23] MEDS: methylPREDNISolone NA SUCC 40 MG/1 ML VIAL IVPB SCH ×2 (10:46→18:37)
[2016-12-23] MEDS: INSULIN SLIDING SCALE (NOVOLOG) 1 VIAL SQ SCH ×3 (11:11→22:07)
[2016-12-23 12:02] VITALS: BMI 26.5
[2016-12-23] MEDS: ALBUTEROL SO4 2.5/IPRATROPIUM 0.5 INH SOL 3 ML VIAL.NEB. NEB SCH ×3 (14:05→23:01)
--- NOTE | 2016-12-23 14:49 | PN ---
Progress Note (short form) - Note Progress Note: ID Consult dictated Acute exacerbation COPD LLL pneumonia Hx facial cellulitis (11/05) Leukocytosis Diabetes mellitus Pending c/s, empiric ceftriaxone/ zithromax Steroids, bronchodilators
--- NOTE | 2016-12-23 15:05 | CON.CARD ---
Consult Consult Specialty:: Cardiology Reason for Consultation:: Chest Pain - History of Present Illness Chief Complaint: Chest pain History of Present Illness: This is a 60 year old male with a PMH of IDDM with an indwelling pump, peripheral neuroapthy, COPD, HTN, HLD, GERD, and a history of Lymes disease. He presents now to the ED che3st chest pain and difficulty breathing. The chest pain is mostly right sided and nonradiating. It is occasionally worse with exertion. He has been coughing and the chest pain is worse with coughing. There is no associated nausea but does have diaphoresis. He is a former heavy smoker and still smokes occasionally. - Past Medical History Cardio/Vascular: Yes: HTN, Hyperlipdemia Endocrine: Yes: Diabetes Mellitus - Alcohol/Substance Use Hx Alcohol Use: No - Smoking History Smoking history: Former smoker Have you smoked in the past 12 months: Yes Aproximately how many cigarettes per day: 5 If you are a former smoker, when did you quit?: SEPTEMBER 2015 Home Medications - Allergies Allergies/Adverse Reactions: Allergies Allergy/AdvReac Type Severity Reaction Status Date / Time No Known Drug Allergies Allergy Verified 12/22/16 20:40 DUST Allergy Mild Uncoded 12/22/16 20:40 GRASS Allergy Mild Uncoded 12/22/16 20:40 - Home Medications Home Medications: Ambulatory Orders Insulin Pump Cartridge [Omnipod] 1 each SQ DAILY 08/25/13 Omeprazole [Prilosec (RX)] 40 mg PO DAILY 03/07/15 Pregabalin [Lyrica] 150 mg PO BID 11/22/15 Albuterol 0.083% Nebulizer Rose Marie [Ventolin 0.083% Nebulizer Soln -] 1 neb NEB Q4H PRN #30 vial 07/24/16 Albuterol Sulfate Inhaler - [Ventolin HFA Inhaler -] 2 inh PO Q4H PRN #1 inh 10/05 Simvastatin 10 mg PO DAILY 12/23/16 Review of Systems Findings/Remarks: As per HPI Vital Signs: Vital Signs Temperature 98.1 F 12/23/16 11:49 Pulse Rate 58 L 12/23/16 11:49 Respiratory Rate 19 12/23/16 11:49 Blood Pressure 126/67 12/23/16 11:49 O2 Sat by Pulse Oximetry (%) 97 12/23/16 11:49 Constitutional: Yes: No Distress Respiratory: Yes: Wheezes (Bilateral inspiratory rhochi and scattered expiratory wheezing) Gastrointestinal: Yes: Soft Cardiovascular: Yes: Regular Rate and Rhythm JVD: No Heart Sounds: Yes: S1, S2 (No MRHG) Edema: No Neurological: Yes: Alert, Oriented (Grossly non focal) - Other Data Labs, Other Data: CBC, BMP 12/23/16 06:10 12/23/16 06:10 Troponin, BNP 12/23/16 12/23/16 00:10 06:10 Troponin I < 0.02 < 0.02 Troponin, BNP 12/23/16 12/23/16 00:10 06:10 Troponin I < 0.02 < 0.02 Assessment/Plan [facility] *LIVE* Chest pain Most likely secondary to a COPD exacerbation with possible community acquired pneumonia No evidence for an acute coronary syndrome - EKG's reviewed Troponin Level is negeative x2 Would avoid Beta blockers since he is wheezing Obtain an echocardiogram Eventually should have a stress test when pulmonary status is improved
--- NOTE | 2016-12-23 16:28 | EKG ---
Test Reason : Blood Pressure : / mmHG Vent. Rate : 094 BPM Atrial Rate : 094 BPM P-R Int : 136 ms QRS Dur : 080 ms QT Int : 340 ms P-R-T Axes : 069 006 041 degrees QTc Int : 425 ms NORMAL SINUS RHYTHM NORMAL ECG WHEN COMPARED WITH ECG OF 03-MAY-2015 19:45, VENT. RATE HAS INCREASED BY 39 BPM Confirmed by KAMALJIT WILD MD ([id number]) on 12/23/2016 4:27:29 PM Referred By: Confirmed By:KAMALJIT WILD MD
[2016-12-23] MEDS ORDERED: INSULIN DETEMIR 100 UNITS/ML MDV SQ ONE (19:45)
[2016-12-23] MEDS: PREGABALIN 75 MG CAPSULE PO SCH (22:11)
[2016-12-23] MEDS: ALPRAZolam 0.25 MG TABLET PO SCH (23:40)
--- NOTE | 2016-12-24 01:00 | CONSULT ---
Consult Consult Specialty:: endocrine Referred by:: dr.annabi ackerman Reason for Consultation:: iddm uncontrolled - History of Present Illness Chief Complaint: difficulty breathing cough and wheezing History of Present Illness: 60 year-old male with a significant past medical history of IDDM with indwelling pump, with peripheral neuropathy, COPD, HTN, HLD, GERD, and Lymes disease, and presents to the emergency department with chest pain and difficulty breathing . He reports the chest pain is bilateral, but worse on the right side, and non-radiating. He states the chest pain was intermittent especially on coughing he took antibiotics,and prednisone but cough and wheezing did not improve.he required iv steriods and nubulizer therapy since this attack his sugars are much higher and requiring increased insulin doses. - History Source History Provided By: Patient - Past Medical History Cardio/Vascular: Yes: HTN, Hyperlipdemia Endocrine: Yes: Diabetes Mellitus - Alcohol/Substance Use Hx Alcohol Use: No - Smoking History Smoking history: Former smoker Have you smoked in the past 12 months: Yes Aproximately how many cigarettes per day: 5 If you are a former smoker, when did you quit?: SEPTEMBER 2015 Home Medications - Allergies Allergies/Adverse Reactions: Allergies Allergy/AdvReac Type Severity Reaction Status Date / Time No Known Drug Allergies Allergy Verified 12/22/16 20:40 DUST Allergy Mild Uncoded 12/22/16 20:40 GRASS Allergy Mild Uncoded 12/22/16 20:40 - Home Medications Home Medications: Ambulatory Orders Insulin Pump Cartridge [Omnipod] 1 each SQ DAILY 08/25/13 Omeprazole [Prilosec (RX)] 40 mg PO DAILY 03/07/15 Pregabalin [Lyrica] 150 mg PO BID 11/22/15 Albuterol 0.083% Nebulizer Rose Marie [Ventolin 0.083% Nebulizer Soln -] 1 neb NEB Q4H PRN #30 vial 07/24/16 Albuterol Sulfate Inhaler - [Ventolin HFA Inhaler -] 2 inh PO Q4H PRN #1 inh 10/05 Simvastatin 10 mg PO DAILY 12/23/16 Review of Systems - Review of Systems Constitutional: reports: Lethargy, Weakness Eyes: reports: Blurred Vision HENT: reports: No Symptoms Neck: reports: Tenderness Cardiovascular: reports: Palpitations, Shortness of Breath Respiratory: reports: Exercise Intolerance, Orthopnea, SOB, SOB on Exertion, Wheezing Gastrointestinal: reports: Bloating, Constipation, Nausea Genitourinary: reports: Hematuria Breasts: reports: No Symptoms Reported Musculoskeletal: reports: Extremity Pain, Muscle Pain, Muscle Cramps Integumentary: reports: No Symptoms Neurological: reports: Weakness Endocrine: reports: Excessive Sweating, Unexplained Weight Loss Physical Exam Vital Signs: Vital Signs Temperature 97.3 F L 12/23/16 18:31 Pulse Rate 80 12/23/16 18:31 Respiratory Rate 18 12/23/16 21:00 Blood Pressure 134/80 12/23/16 18:31 O2 Sat by Pulse Oximetry (%) 94 L 12/23/16 21:00 Constitutional: Yes: Anxious Eyes: Yes: EOM Intact HENT: Yes: Normocephalic Neck: Yes: Trachea Midline Cardiovascular: Yes: Tachycardia Respiratory: Yes: Accessory Muscle Use, Cough, Rhonchi, SOB, SOB on Exertion, Tachypnea, Wheezes Gastrointestinal: Yes: Normal Bowel Sounds ...Rectal Exam: Yes: Deferred Renal/: Yes: WNL Breast(s): Yes: WNL Musculoskeletal: Yes: Joint Stiffness, Muscle Weakness Extremities: Yes: WNL Edema: Yes Edema: LLE: Trace, RLE: Trace Neurological: Yes: Alert, Oriented, Weakness ...Motor Strength: WNL Psychiatric: Yes: Alert, Oriented Labs: CBC, BMP 12/23/16 06:10 12/23/16 06:10 Assessment/Plan Current Active Problems Asthma exacerbation in COPD (Acute) Bronchitis (Acute) COPD exacerbation (Acute) Chest pain (Acute) Pneumonia (Acute) Tachycardia (Acute) iddm uncontrolled hyperglycemia Abnormal Lab Results 12/23/16 06:10 Anion Gap 4 L Random Glucose 175 H D Calcium 8.4 L Albumin 3.3 L Laboratory Results - last 24 hr 12/23/16 12/23/16 12/23/16 06:10 06:10 06:10 WBC 9.1 D RBC 4.15 Hgb 12.0 Hct 36.0 MCV 86.8 MCHC 33.2 RDW 14.1 Plt Count 202 MPV 8.7 Sodium 137 Potassium 4.2 Chloride 102 Carbon Dioxide 31 Anion Gap 4 L BUN 17 D Creatinine 1.1 Creat Clearance w eGFR > 60 POC Glucometer Random Glucose 175 H D Calcium 8.4 L Total Bilirubin 0.4 AST 20 ALT 30 Alkaline Phosphatase 106 Creatine Kinase 122 Troponin I < 0.02 Total Protein 6.7 Albumin 3.3 L 12/23/16 12/23/16 11:06 17:45 WBC RBC Hgb Hct MCV MCHC RDW Plt Count MPV Sodium Potassium Chloride Carbon Dioxide Anion Gap BUN Creatinine Creat Clearance w eGFR POC Glucometer [id number] 456 Random Glucose Calcium Total Bilirubin AST ALT Alkaline Phosphatase Creatine Kinase Troponin I Total Protein Albumin Laboratory Tests 12/23/16 12/23/16 11:06 17:45 POC Glucometer [id number] 456 plan: bgm novolog achs scale levemir 20 units bid ck hb a1c
--- NOTE | 2016-12-24 01:13 | CONS ---
DATE OF CONSULTATION: 12/23/2016 HISTORY: A 60-year-old, insulin-dependent diabetic evaluated for pneumonia. He was admitted to the hospital with chest pain and shortness of breath. Patient had complained of bilateral chest pain associated with worsening shortness of breath and cough, productive of yellowish sputum. Chest x-ray revealed possible retrocardiac infiltrate. CT scan of the chest confirmed the presence of a left lower lobe patchy infiltrate. He was empirically treated with Zithromax and ceftriaxone. Patient, at the present time, is dyspneic at rest with audible wheezing. He denies any ill contacts. He is a former smoker. He was last hospitalized at [facility] in September of this year with a facial cellulitis. At that time, he also was found to have a penile shaft lesion, which was positive wound culture for MRSA. PAST MEDICAL HISTORY: Positive for insulin-dependent diabetes mellitus, COPD, hypertension, hyperlipidemia, gastroesophageal reflux. PAST SURGICAL HISTORY: Status post insulin pump. ALLERGIES: No known drug allergies. MEDICATIONS: Solu-Medrol, ceftriaxone, Lyrica, Ventolin, NovoLog, Ecotrin, Protonix. SOCIAL HISTORY: Former smoker. Lives at home with family. REVIEW OF SYSTEMS: Neurologic: No loss of consciousness, seizure activity, focal weakness. Cardiac: As per HPI. Respiratory: As per HPI. Gastrointestinal: Negative vomiting or diarrhea. Genitourinary: Negative for urinary tract infection. LABORATORY DATA: White count on admission was 14.3, presently 9.1, hematocrit 36.0, platelet count 202, BUN 17, creatinine 1.1. PHYSICAL EXAMINATION: General: He is awake and alert. He is seated in bed. Vital signs: Temperature 98.1, blood pressure 126/87, pulse 58 and regular, respirations 19 per minute. HEENT: Sclerae anicteric. Heart: S1, S2. Lungs: Coarse rhonchi bilaterally. Abdomen: Soft. No tenderness elicited. No mass, rebound, or rigidity. Genitalia: Healed penile lesion. Extremities: Negative for edema. IMPRESSION: 1. Acute exacerbation of chronic obstructive pulmonary disease. 2. Left lower lobe pneumonia. 3. History of facial cellulitis. 4. Leukocytosis. 5. Insulin-dependent diabetes mellitus. PLAN: Await cultures. Empiric treatment for suspected community-acquired versus atypical pneumonia with Zithromax and ceftriaxone. Continue inhaled bronchodilators and intravenous corticosteroids. Thank you for the kind referral. SHAUNNA ROJO M.D. [id number]
[2016-12-24] MEDS: methylPREDNISolone NA SUCC 40 MG/1 ML VIAL IVPB SCH ×3 (01:21→18:13)
[2016-12-24] MEDS: ALBUTEROL SO4 2.5/IPRATROPIUM 0.5 INH SOL 3 ML VIAL.NEB. NEB SCH ×2 (06:20→18:00)
[2016-12-24] MEDS: INSULIN SLIDING SCALE (NOVOLOG) 1 VIAL SQ SCH ×4 (06:40→21:43)
--- NOTE | 2016-12-24 08:54 | PN ---
Progress Note, Physician History of Present Illness: c/o cough and cp - Current Medication List Current Medications: Active Medications Albuterol Sulfate (Ventolin 0.083% Nebulizer Soln -) 1 amp NEB Q4H PRN PRN Reason: COUGH Last Admin: 12/23/16 03:09 Dose: 1 amp Albuterol/Ipratropium (Duoneb -) 1 amp NEB QIDR [facility] Last Admin: 12/24/16 06:20 Dose: 1 amp Alprazolam (Xanax -) 0.5 mg PO HS [facility] Last Admin: 12/23/16 23:40 Dose: 0.5 mg Aspirin (Ecotrin -) 81 mg PO DAILY [facility] Last Admin: 12/23/16 10:31 Dose: 81 mg Azithromycin (Zithromax 500mg Ivpb (Pre-Docked)) 500 mg IVPB DAILY [facility] Ceftriaxone Sodium (Rocephin 1gm Ivpb (Pre-Docked)) 50 mls @ 200 mls/hr IVPB DAILY [facility] Insulin Aspart (Novolog Vial Sliding Scale -) 1 vial SQ ACHS [facility] PRN Reason: Protocol Last Admin: 12/24/16 06:40 Dose: 14 units Insulin Detemir (Levemir Vial) 20 units SQ BID [facility] Methylprednisolone Sodium Succinate (Solu-Medrol -) 40 mg IVPB Q8H-IV [facility] Last Admin: 12/24/16 01:21 Dose: 40 mg Pantoprazole Sodium (Protonix -) 40 mg PO DAILY [facility] Last Admin: 12/23/16 10:31 Dose: 40 mg Pregabalin (Lyrica -) 150 mg PO BID [facility] Last Admin: 12/23/16 22:11 Dose: Not Given - Objective Vital Signs: Vital Signs Temperature 97.8 F 12/24/16 06:00 Pulse Rate 76 12/24/16 06:00 Respiratory Rate 18 12/24/16 06:00 Blood Pressure 138/64 12/24/16 06:00 O2 Sat by Pulse Oximetry (%) 94 L 12/23/16 21:00 Cardiovascular: Yes: S1, S2 Respiratory: Yes: Rhonchi, Wheezes Gastrointestinal: Yes: Normal Bowel Sounds, Soft Labs: CBC, BMP 12/23/16 06:10 12/23/16 06:10 Problem List - Problems (1) Asthma exacerbation in COPD Assessment/Plan: IV STEROIDS NEBS CT OF CHEST NOTED WITH PNA Code(s): J44.1 - CHRONIC OBSTRUCTIVE PULMONARY DISEASE W (ACUTE) EXACERBATION J45.901 - UNSPECIFIED ASTHMA WITH (ACUTE) EXACERBATION (2) Bronchitis Assessment/Plan: ABX CT OF CHEST Code(s): J40 - BRONCHITIS, NOT SPECIFIED ACUTE OR CHRONIC (3) Chest pain Assessment/Plan: FOLLOW CE TEL CARDIO STRESS TEST Code(s): R07.9 - CHEST PAIN, UNSPECIFIED (4) Diabetes mellitus, insulin dependent (IDDM), uncontrolled Assessment/Plan: BGM INSULIN\ ENDO Code(s): E10.65 - TYPE 1 DIABETES MELLITUS WITH HYPERGLYCEMIA Qualifiers: Diabetes mellitus complication status: with other specified complication Qualified Code(s): E10.69 - Type 1 diabetes mellitus with other specified complication; E10.65 - Type 1 diabetes mellitus with hyperglycemia (5) Pneumonia Assessment/Plan: CT ABX Code(s): J18.9 - PNEUMONIA, UNSPECIFIED ORGANISM
[2016-12-24] MEDS ORDERED: PREGABALIN 75 MG CAPSULE PO SCH (10:00)
[2016-12-24] MEDS ORDERED: AZITHROMYCIN IVPB 500 MG in DEXTROSE 5%-WATER - 250 ML IVPB SCH (10:00)
[2016-12-24] MEDS ORDERED: DOBUTAMINE HCL 100,000 MCG in DEXTROSE 5%-WATER - 92 ML IVPB ONE (10:00)
[2016-12-24] MEDS ORDERED: INSULIN (NOVOLOG) ASPART 100 UNITS/ML 10ML VIAL ONE (13:08)
[2016-12-24] MEDS: INSULIN DETEMIR 100 UNITS/ML MDV SQ SCH ×2 (13:10→21:43)
[2016-12-24] MEDS: PREGABALIN 75 MG CAPSULE PO SCH ×2 (13:13→21:42)
[2016-12-24] MEDS: PANTOPRAZOLE 40 MG TABLET (FP) PO SCH (13:13)
[2016-12-24] MEDS: CEFTRIAXONE 50 ML IVPB SCH (13:13)
[2016-12-24] MEDS: ASPIRIN COATED 81 MG TABLET.EC PO SCH (13:14)
[2016-12-24] MEDS: AZITHROMYCIN IVPB 500 MG/250 ML D5W PRE-DOCKED IVPB SCH (14:00)
--- NOTE | 2016-12-24 17:25 | PN ---
Progress Note, Physician Chief Complaint: Chest pain and breathing improved Nuclear Stress Test with no ischemia History of Present Illness: 60 year old male with a PMH of IDDM with an indwelling pump, peripheral neuroapthy, COPD, HTN, HLD, GERD, and a history of Lymes disease. He presents now to the ED che3st chest pain and difficulty breathing. The chest pain is mostly right sided and nonradiating. It is occasionally worse with exertion. He has been coughing and the chest pain is worse with coughing. There is no associated nausea but does have diaphoresis. He is a former heavy smoker and still smokes occasionally. - Current Medication List Current Medications: Active Medications Albuterol Sulfate (Ventolin 0.083% Nebulizer Soln -) 1 amp NEB Q4H PRN PRN Reason: COUGH Last Admin: 12/23/16 03:09 Dose: 1 amp Albuterol/Ipratropium (Duoneb -) 1 amp NEB QIDR [facility] Last Admin: 12/24/16 06:20 Dose: 1 amp Alprazolam (Xanax -) 0.5 mg PO HS [facility] Last Admin: 12/23/16 23:40 Dose: 0.5 mg Aspirin (Ecotrin -) 81 mg PO DAILY [facility] Last Admin: 12/24/16 13:14 Dose: 81 mg Azithromycin (Zithromax 500mg Ivpb (Pre-Docked)) 500 mg IVPB DAILY [facility] Ceftriaxone Sodium (Rocephin 1gm Ivpb (Pre-Docked)) 50 mls @ 200 mls/hr IVPB DAILY [facility] Last Admin: 12/24/16 13:13 Dose: 200 mls/hr Insulin Aspart (Novolog Vial Sliding Scale -) 1 vial SQ ACHS [facility] PRN Reason: Protocol Last Admin: 12/24/16 17:18 Dose: Not Given Insulin Detemir (Levemir Vial) 20 units SQ BID [facility] Last Admin: 12/24/16 13:10 Dose: Not Given Methylprednisolone Sodium Succinate (Solu-Medrol -) 40 mg IVPB Q8H-IV [facility] Last Admin: 12/24/16 13:14 Dose: 40 mg Pantoprazole Sodium (Protonix -) 40 mg PO DAILY [facility] Last Admin: 12/24/16 13:13 Dose: 40 mg Pregabalin (Lyrica -) 150 mg PO BID [facility] Last Admin: 12/24/16 13:13 Dose: 150 mg - Objective Vital Signs: Vital Signs Temperature 97.7 F 12/24/16 09:00 Pulse Rate 82 12/24/16 09:00 Respiratory Rate 18 12/24/16 09:00 Blood Pressure 122/71 12/24/16 09:00 O2 Sat by Pulse Oximetry (%) 95 12/24/16 09:00 Constitutional: Yes: No Distress Cardiovascular: Yes: Regular Rate and Rhythm, S1, S2. No: JVD, Murmur Respiratory: Yes: Wheezes Gastrointestinal: Yes: Normal Bowel Sounds, Soft Edema: No Labs: CBC, BMP 12/23/16 06:10 12/23/16 06:10 Problem List - Problems (1) COPD exacerbation Code(s): J44.1 - CHRONIC OBSTRUCTIVE PULMONARY DISEASE W (ACUTE) EXACERBATION (2) Chest pain Code(s): R07.9 - CHEST PAIN, UNSPECIFIED Assessment/Plan 60 year old male with a PMH of IDDM with an indwelling pump, peripheral neuroapthy, COPD, HTN, HLD, GERD, and a history of Lymes disease. He presents now to the ED che3st chest pain and difficulty breathing. The chest pain is mostly right sided and nonradiating. It is occasionally worse with exertion. He has been coughing and the chest pain is worse with coughing. There is no associated nausea but does have diaphoresis. He is a former heavy smoker and still smokes occasionally. 1) Chest pain sysmptoms are unlikely cardiac in nature as atypical with no acute ekg changes, negative troponins and nuclear stress test done today with no ischemia. -echocardiogram pending. -CT scan chest with no PE Continue COPD treatment as per primary team No bblocker as patient with wheeze on exam Please call back if any questions or clinical changes. Call if any significant findings on echocardiogram
[2016-12-24] MEDS: ALPRAZolam 0.25 MG TABLET PO SCH (21:42)
[2016-12-24] MEDS ORDERED: PT OWN MED DRAWER 7, Y5N ONE (23:31)
[2016-12-25] MEDS: ALBUTEROL SO4 2.5/IPRATROPIUM 0.5 INH SOL 3 ML VIAL.NEB. NEB SCH ×4 (00:42→16:45)
[2016-12-25] MEDS: methylPREDNISolone NA SUCC 40 MG/1 ML VIAL IVPB SCH (01:37)
[2016-12-25] MEDS: INSULIN SLIDING SCALE (NOVOLOG) 1 VIAL SQ SCH ×3 (06:25→17:01)
--- NOTE | 2016-12-25 09:07 | PN ---
Progress Note, Physician History of Present Illness: feels better wants to go home less coughing - Current Medication List Current Medications: Active Medications Albuterol Sulfate (Ventolin 0.083% Nebulizer Soln -) 1 amp NEB Q4H PRN PRN Reason: COUGH Last Admin: 12/23/16 03:09 Dose: 1 amp Albuterol/Ipratropium (Duoneb -) 1 amp NEB QIDR [facility] Last Admin: 12/25/16 06:50 Dose: 1 amp Alprazolam (Xanax -) 0.5 mg PO HS [facility] Last Admin: 12/24/16 21:42 Dose: 0.5 mg Aspirin (Ecotrin -) 81 mg PO DAILY [facility] Last Admin: 12/24/16 13:14 Dose: 81 mg Azithromycin (Zithromax 500mg Ivpb (Pre-Docked)) 500 mg IVPB DAILY [facility] Last Admin: 12/24/16 14:00 Dose: 500 mg Ceftriaxone Sodium (Rocephin 1gm Ivpb (Pre-Docked)) 50 mls @ 200 mls/hr IVPB DAILY [facility] Last Admin: 12/24/16 13:13 Dose: 200 mls/hr Insulin Aspart (Novolog Vial Sliding Scale -) 1 vial SQ ACHS [facility] PRN Reason: Protocol Last Admin: 12/25/16 06:25 Dose: Not Given Insulin Detemir (Levemir Vial) 20 units SQ BID [facility] Last Admin: 12/24/16 21:43 Dose: Not Given Pantoprazole Sodium (Protonix -) 40 mg PO DAILY [facility] Last Admin: 12/24/16 13:13 Dose: 40 mg Prednisone (Deltasone -) 40 mg PO DAILY [facility] Pregabalin (Lyrica -) 150 mg PO BID [facility] Last Admin: 12/24/16 21:42 Dose: 150 mg - Objective Vital Signs: Vital Signs Temperature 97.8 F 12/25/16 06:00 Pulse Rate 67 12/25/16 06:00 Respiratory Rate 18 12/25/16 06:00 Blood Pressure 131/70 12/25/16 06:00 O2 Sat by Pulse Oximetry (%) 95 12/24/16 21:00 Cardiovascular: Yes: Regular Rate and Rhythm Respiratory: Yes: Rhonchi. No: Wheezes Gastrointestinal: Yes: Normal Bowel Sounds, Soft Edema: No Labs: CBC, BMP 12/23/16 06:10 06/04/17 06:10 Problem List - Problems (1) Asthma exacerbation in COPD Assessment/Plan: IV STEROIDS---TO PO NEBS CT OF CHEST NOTED WITH PNA Code(s): J44.1 - CHRONIC OBSTRUCTIVE PULMONARY DISEASE W (ACUTE) EXACERBATION J45.901 - UNSPECIFIED ASTHMA WITH (ACUTE) EXACERBATION (2) Bronchitis Assessment/Plan: ABX CT OF CHEST--PNA Code(s): J40 - BRONCHITIS, NOT SPECIFIED ACUTE OR CHRONIC (3) Chest pain Assessment/Plan: FOLLOW CE TEL CARDIO STRESS TEST NO ISCHEMIA Code(s): R07.9 - CHEST PAIN, UNSPECIFIED (4) Diabetes mellitus, insulin dependent (IDDM), uncontrolled Assessment/Plan: BGM INSULIN\ ENDO ON LEVEMIR Code(s): E10.65 - TYPE 1 DIABETES MELLITUS WITH HYPERGLYCEMIA Qualifiers: Diabetes mellitus complication status: with other specified complication Qualified Code(s): E10.69 - Type 1 diabetes mellitus with other specified complication; E10.65 - Type 1 diabetes mellitus with hyperglycemia (5) Pneumonia Assessment/Plan: CT --LLL INFILTRATE ABX Code(s): J18.9 - PNEUMONIA, UNSPECIFIED ORGANISM
[2016-12-25] MEDS ORDERED: predniSONE 20 MG TABLET (UD) PO SCH (10:00)
[2016-12-25] MEDS: PANTOPRAZOLE 40 MG TABLET (FP) PO SCH (10:15)
[2016-12-25] MEDS: CEFTRIAXONE 50 ML IVPB SCH (10:15)
[2016-12-25] MEDS: ASPIRIN COATED 81 MG TABLET.EC PO SCH (10:15)
[2016-12-25] MEDS: INSULIN DETEMIR 100 UNITS/ML MDV SQ SCH (10:15)
[2016-12-25] MEDS: AZITHROMYCIN IVPB 500 MG/250 ML D5W PRE-DOCKED IVPB SCH (10:15)
[2016-12-25] MEDS: PREGABALIN 75 MG CAPSULE PO SCH (10:15)
[2016-12-25 15:02] VITALS: BP 128/76; PULSE 95; TEMP 97.9
--- NOTE | 2016-12-25 15:39 | PN ---
Progress Note, Physician Chief Complaint: Feels well Wants to go home No chest pain or dyspnea History of Present Illness: 60 year old male with a PMH of IDDM with an indwelling pump, peripheral neuroapthy, COPD, HTN, HLD, GERD, and a history of Lymes disease. He presents now to the ED che3st chest pain and difficulty breathing. The chest pain is mostly right sided and nonradiating. It is occasionally worse with exertion. He has been coughing and the chest pain is worse with coughing. There is no associated nausea but does have diaphoresis. He is a former heavy smoker and still smokes occasionally. - Current Medication List Current Medications: Active Medications Albuterol Sulfate (Ventolin 0.083% Nebulizer Soln -) 1 amp NEB Q4H PRN PRN Reason: COUGH Last Admin: 12/23/16 03:09 Dose: 1 amp Albuterol/Ipratropium (Duoneb -) 1 amp NEB QIDR [facility] Last Admin: 12/25/16 10:45 Dose: 1 amp Alprazolam (Xanax -) 0.5 mg PO HS [facility] Last Admin: 12/24/16 21:42 Dose: 0.5 mg Aspirin (Ecotrin -) 81 mg PO DAILY [facility] Last Admin: 12/25/16 10:15 Dose: 81 mg Azithromycin (Zithromax 500mg Ivpb (Pre-Docked)) 500 mg IVPB DAILY [facility] Last Admin: 12/25/16 10:15 Dose: 500 mg Ceftriaxone Sodium (Rocephin 1gm Ivpb (Pre-Docked)) 50 mls @ 200 mls/hr IVPB DAILY [facility] Last Admin: 12/25/16 10:15 Dose: 200 mls/hr Insulin Aspart (Novolog Vial Sliding Scale -) 1 vial SQ ACHS [facility] PRN Reason: Protocol Last Admin: 12/25/16 12:33 Dose: Not Given Insulin Detemir (Levemir Vial) 20 units SQ BID [facility] Last Admin: 12/25/16 10:15 Dose: Not Given Pantoprazole Sodium (Protonix -) 40 mg PO DAILY [facility] Last Admin: 12/25/16 10:15 Dose: 40 mg Prednisone (Deltasone -) 40 mg PO DAILY [facility] Last Admin: 12/25/16 10:15 Dose: 40 mg Pregabalin (Lyrica -) 150 mg PO BID [facility] Last Admin: 12/25/16 10:15 Dose: 150 mg - Objective Vital Signs: Vital Signs Temperature 97.9 F 12/25/16 14:01 Pulse Rate 95 H 12/25/16 14:01 Respiratory Rate 16 12/25/16 14:01 Blood Pressure 128/76 12/25/16 14:01 O2 Sat by Pulse Oximetry (%) 94 L 12/25/16 11:31 Constitutional: Yes: No Distress Cardiovascular: Yes: Regular Rate and Rhythm, S1, S2. No: Murmur Respiratory: Yes: CTA Bilaterally Gastrointestinal: Yes: Normal Bowel Sounds, Soft Edema: No Labs: CBC, BMP 12/23/16 06:10 12/23/16 06:10 Problem List - Problems (1) COPD exacerbation Code(s): J44.1 - CHRONIC OBSTRUCTIVE PULMONARY DISEASE W (ACUTE) EXACERBATION (2) Chest pain Code(s): R07.9 - CHEST PAIN, UNSPECIFIED Assessment/Plan 60 year old male with a PMH of IDDM with an indwelling pump, peripheral neuroapthy, COPD, HTN, HLD, GERD, and a history of Lymes disease. He presents now to the ED che3st chest pain and difficulty breathing. The chest pain is mostly right sided and nonradiating. It is occasionally worse with exertion. He has been coughing and the chest pain is worse with coughing. There is no associated nausea but does have diaphoresis. He is a former heavy smoker and still smokes occasionally. 1) Chest pain sysmptoms are unlikely cardiac in nature as atypical with no acute ekg changes, negative troponins and nuclear stress test done today with no ischemia. -echocardiogram pending. -CT scan chest with no PE Continue COPD treatment as per primary team No bblocker as patient with wheeze on exam Please call back if any questions or clinical changes. Call if any significant findings on echocardiogram
--- NOTE | 2016-12-25 17:17 | PN ---
Progress Note, Physician History of Present Illness: Feeling better Occasional cough No c/o dyspnea/ chest pain No fever/ chills Cultures no growth - Current Medication List Current Medications: Active Medications Albuterol Sulfate (Ventolin 0.083% Nebulizer Soln -) 1 amp NEB Q4H PRN PRN Reason: COUGH Last Admin: 12/23/16 03:09 Dose: 1 amp Albuterol/Ipratropium (Duoneb -) 1 amp NEB QIDR [facility] Last Admin: 12/25/16 10:45 Dose: 1 amp Alprazolam (Xanax -) 0.5 mg PO HS [facility] Last Admin: 12/24/16 21:42 Dose: 0.5 mg Aspirin (Ecotrin -) 81 mg PO DAILY [facility] Last Admin: 12/25/16 10:15 Dose: 81 mg Azithromycin (Zithromax 500mg Ivpb (Pre-Docked)) 500 mg IVPB DAILY [facility] Last Admin: 12/25/16 10:15 Dose: 500 mg Ceftriaxone Sodium (Rocephin 1gm Ivpb (Pre-Docked)) 50 mls @ 200 mls/hr IVPB DAILY [facility] Last Admin: 12/25/16 10:15 Dose: 200 mls/hr Insulin Aspart (Novolog Vial Sliding Scale -) 1 vial SQ ACHS [facility] PRN Reason: Protocol Last Admin: 12/25/16 17:01 Dose: Not Given Insulin Detemir (Levemir Vial) 20 units SQ BID [facility] Last Admin: 12/25/16 10:15 Dose: Not Given Pantoprazole Sodium (Protonix -) 40 mg PO DAILY [facility] Last Admin: 12/25/16 10:15 Dose: 40 mg Prednisone (Deltasone -) 40 mg PO DAILY [facility] Last Admin: 12/25/16 10:15 Dose: 40 mg Pregabalin (Lyrica -) 150 mg PO BID [facility] Last Admin: 12/25/16 10:15 Dose: 150 mg - Objective Vital Signs: Vital Signs Temperature 97.9 F 12/25/16 14:01 Pulse Rate 95 H 12/25/16 14:01 Respiratory Rate 16 12/25/16 14:01 Blood Pressure 128/76 12/25/16 14:01 O2 Sat by Pulse Oximetry (%) 94 L 12/25/16 11:31 Constitutional: Yes: No Distress Eyes: Yes: Conjunctiva Clear Cardiovascular: Yes: Regular Rate and Rhythm, S1, S2 Respiratory: Yes: Diminished Gastrointestinal: Yes: Normal Bowel Sounds, Soft. No: Tenderness Edema: No Labs: CBC, BMP 12/23/16 06:10 12/23/16 06:10 Assessment/Plan Exacerbation COPD LLL pneumonia Leukocytosis- improved Substitute po ceftin 500mg bid x7d Bronchodilators Taper steroids
== END 2016-12-25 18:35 | disposition home or self-care (01) | DRG 190 ==
LOC: JER 20:21 → JERBED 23:00 → UNDOADMIN 23:10 → JERBED 23:10 → J4S 12-23 12:24
PROVIDERS: ADMIT Family Medicine; ATTEND Family Medicine
DX: J44.1 Chronic obstructive pulmonary disease with (acute) exacerbation (principal); J18.9 Pneumonia, unspecified organism; J44.0 Chronic obstructive pulmonary disease with (acute) lower respiratory infection; I10 Essential (primary) hypertension; E78.5 Hyperlipidemia, unspecified; K21.9 Gastro-esophageal reflux disease without esophagitis; E78.00 Pure hypercholesterolemia, unspecified; E11.40 Type 2 diabetes mellitus with diabetic neuropathy, unspecified; J45.909 Unspecified asthma, uncomplicated; D64.9 Anemia, unspecified; I25.10 Atherosclerotic heart disease of native coronary artery without angina pectoris; E11.65 Type 2 diabetes mellitus with hyperglycemia; R07.89 Other chest pain; D72.829 Elevated white blood cell count, unspecified; Z79.4 Long term (current) use of insulin; Z87.891 Personal history of nicotine dependence; Z95.5 Presence of coronary angioplasty implant and graft
CPT/HCPCS: 36415; 71020-TC; 71275-TC; 78452-TC; 80053; 82550; 84484; 85025; 85027; 87040; 87070; 87205; 87899; 93005; 93010; 93017; 94640; 99285-25; A9502

== ENCOUNTER 2017-01-06 16:51 | Emergency (ER) | payer OTHER ==
[2017-01-06 17:06] VITALS: BP 113/66; PULSE 90; TEMP 97.8; BMI 26.1
[2017-01-06] MEDS ORDERED: SODIUM CHLORIDE 1,000 ML IV STA (17:44)
--- NOTE | 2017-01-06 17:57 | PDOC ---
History of Present Illness - General Chief Complaint: Syncope/Near Syncope Stated Complaint: NAUSEA/WEAKNESS Time Seen by Provider: 01/06/17 17:39 History Source: Patient - History of Present Illness Presenting Symptoms: Dizziness, Near-Syncope Timing/Duration: reports: resolved prior to arrival Past History - Past Medical History Allergies/Adverse Reactions: Allergies Allergy/AdvReac Type Severity Reaction Status Date / Time No Known Drug Allergies Allergy Verified 01/06/17 17:06 DUST Allergy Mild Uncoded 01/06/17 17:06 GRASS Allergy Mild Uncoded 01/06/17 17:06 Home Medications: Ambulatory Orders Insulin Pump Cartridge [Omnipod] 1 each SQ DAILY 08/25/13 Omeprazole [Prilosec (RX)] 40 mg PO DAILY 03/07/15 Pregabalin [Lyrica] 150 mg PO BID 11/22/15 Albuterol 0.083% Nebulizer Rose Marie [Ventolin 0.083% Nebulizer Soln -] 1 neb NEB Q4H PRN #30 vial 07/24/16 Albuterol Sulfate Inhaler - [Ventolin HFA Inhaler -] 2 inh PO Q4H PRN #1 inh 10/05 Simvastatin 10 mg PO DAILY 12/23/16 Aspirin Coated [Ecotrin -] 81 mg PO DAILY #30 tab 12/25/16 Prednisone [Deltasone -] 20 mg PO BID #6 tablet 12/25/16 Anemia: Yes Asthma: Yes Cancer: No Cardiac Disorders: Yes (HAD ANGIOPLASTYx2 no stent) CVA: No COPD: Yes CHF: No Dementia: No Diabetes: Yes (IDDM-INSULIN PUMP) GI Disorders: Yes (GERD) Disorders: No HTN: No Hypercholesterolemia: Yes Liver Disease: (PANCREASE PROBLEM) Suicide Attempt (Hx): No Seizures: No Thyroid Disease: No - Surgical History Abdominal Surgery: No Appendectomy: No Cardiac Surgery: Yes (ANGIOPLASTY) Cholecystectomy: No Lung Surgery: No Neurologic Surgery: No Orthopedic Surgery: No - Immunization History Immunization Up to Date: Yes - Psycho/Social/Smoking Cessation Hx Anxiety: No Suicidal Ideation: No Smoking Status: Yes Smoking History: Current every day smoker Have you smoked in the past 12 months: Yes Number of Cigarettes Smoked Daily: 2 If you are a former smoker, when did you quit?: SEPTEMBER 2015 Information on smoking cessation initiated: Yes 'Breaking Loose' booklet given: 01/06/17 Hx Alcohol Use: No Drug/Substance Use Hx: No Substance Use Type: None Hx Substance Use Treatment: No Cardiac Specific PMH - Complaint Specific PMHX Pacemaker: No Review of Systems - Review of Systems Constitutional: No: Fever Respiratory: Yes: Shortness of Breath. No: Cough Cardiac (ROS): Yes: Lightheadedness. No: Chest Pain, Palpitations ABD/GI: Yes: Diarrhea. No: Blood Streaked Bowels, Constipated, Nausea, Vomiting , Tarry Stools : No: Dysuria, Flank Pain, Hematuria Musculoskeletal: No: Back Pain Neurological: Yes: Dizziness. No: Headache, Numbness, Tingling, Weakness *Physical Exam - Vital Signs Last Vital Signs Temp Pulse Resp BP Pulse Ox 97.8 F 90 20 113/66 95 01/06/17 17:03 01/06/17 17:03 01/06/17 17:03 01/06/17 17:03 01/06/17 17:03 - Physical Exam General Appearance: Yes: Appropriately Dressed. No: Apparent Distress HEENT: positive: Normal Voice. negative: Scleral Icterus (R), Scleral Icterus ( L) Neck: positive: Supple Respiratory/Chest: positive: Lungs Clear, Normal Breath Sounds. negative: Respiratory Distress Cardiovascular: positive: Regular Rate, S1, S2 Gastrointestinal/Abdominal: positive: Soft. 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 negative: Sensory Deficit Heart Score/ECG Review - ECG Intrepretation Comment:: 01/06/17 18:49 Twelve-lead EKG was performed and reviewed by me. There is normal sinus rhythm with a normal rate. The axis is normal. The intervals are normal. There are no ST or T wave abnormalities. Impression: Normal twelve-lead EKG ED Treatment Course - LABORATORY CBC & Chemistry Diagram: 01/06/17 17:47 01/06/17 17:47 - ADDITIONAL ORDERS Additional order review: Laboratory Results 01/06/17 01/06/17 17:48 17:47 Sodium 141 Potassium 3.8 Chloride 104 Carbon Dioxide 27 Anion Gap 10 BUN 15 Creatinine 0.9 Creat Clearance w eGFR > 60 POC Glucometer 117.56454 Random Glucose 95 D Calcium 8.6 Total Bilirubin 0.3 D AST 29 D ALT 45 D Alkaline Phosphatase 94 Creatine Kinase 100 Troponin I < 0.02 Total Protein 6.6 Albumin 3.5 01/06/17 01/06/17 17:48 17:47 RBC 4.18 MCV 87.5 MCHC 33.0 RDW 14.1 MPV 9.1 Neutrophils % 82.5 Lymphocytes % 11.4 Monocytes % 4.5 Eosinophils % 1.3 Basophils % 0.3 POC Glucometer [id number] - RADIOLOGY Radiology Studies Ordered: Category Date Time Status CHEST X-RAY PORTABLE* [RAD] Stat Radiology 01/06/17 18:48 Ordered - Medications Given in the ED: ED Medications Discontinued Medications Generic Name Dose Route Start Last Admin Trade Name Freq PRN Reason Stop Dose Admin Sodium Chloride 1,000 mls @ 1,000 mls/hr 01/06/17 17:44 01/06/17 18:00 Normal Saline - IV 01/06/17 18:43 1,000 mls/hr ASDIR STA Administration Medical Decision Making - Medical Decision Making 01/06/17 17:45 61-year-old male, history of insulin-dependent diabetes with an indwelling pump , peripheral neuropathy, COPD, and still occasionally smokes, recent admission for PNA, hypertension, hyperlipidemia, 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 Patient states while standing up this evening helping his son fix a car, he suddenly became lightheaded and felt like he was going to pass out, but that his son caught him before he fell. Was having some shortness of breath at the time that has since resolved. States he feels better now. No chest pain, diaphoresis, nausea, vomiting, headache, visual changes, slurred speech or focal weakness. Reports 5 or 6 e/o NB diarrhea since last night. No abd pain, f/c. Patient concerned near syncope could possibly be due to hypoglycemia as he has not checked his finger stick in several days. Patient reports that his [id number] yesterday and that for the past 48 hours, he has had decreased po intake and has not had much sleep. See exam Near syncope today Since improved Stable in ED w/ clear chest/lungs and no focal deficit Symptoms possibly 2/2 dehydration given current diarrheal illness vs hypoglycemia (has insulin pump, no recent FS at home) vs cardiac (was briefly sob earlier today, since resolved), less likely neuro, i.e CVA -FS -EKG -labs -IVF -reassess 01/06/17 18:00 01/06/17 18:49
[2017-01-06 17:58] LABS: BASOPHIL 0.3 % (0-2.0); EOSINOPHIL 1.3 % (0-4.5); MCH 28.9 pg (25.7-33.7); MEAN CELL VOLUME 87.5 fl (80-96); MEAN PLT VOLUME 9.1 fl (7.5-11.1); NEUTROPHILS 82.5 % (42.8-82.8); PLATELET COUNT 145 K/MM3 (134-434); RDW 14.1 % (11.9-15.9); WHITE BLOOD COUNT 9.8 K/mm3 (4.0-10.0)
[2017-01-06 18:32] LABS: ALBUMIN 3.5 g/dl (3.4-5.0); ANION GAP 10 (8-16); BILIRUBIN,TOTAL 0.3 mg/dL (0.2-1.0); CALCIUM 8.6 mg/dL (8.5-10.1); CO2 27 mmol/L (21-32); CREATININE 0.9 mg/dL (0.7-1.3); GLUCOSE,RANDOM 95 mg/dL (74-106); SGOT/AST 29 U/L (15-37); SGPT/ALT 45 U/L (12-78); TOT PROT 6.6 g/dl (6.4-8.2)
[2017-01-06 18:34] LABS: ALK PHOS 94 U/L (45-117); TROPONIN I < 0.02 ng/ml (0.00-0.05)
--- NOTE | 2017-01-06 19:47 | PDOC ---
*Physical Exam - Vital Signs Last Vital Signs Temp Pulse Resp BP Pulse Ox 97.8 F 90 20 113/66 95 01/06/17 17:03 01/06/17 17:03 01/06/17 17:03 01/06/17 17:03 01/06/17 17:03 ED Treatment Course - LABORATORY CBC & Chemistry Diagram: 01/06/17 17:47 01/06/17 17:47 - ADDITIONAL ORDERS Additional order review: Laboratory Results 01/06/17 01/06/17 17:48 17:47 Sodium 141 Potassium 3.8 Chloride 104 Carbon Dioxide 27 Anion Gap 10 BUN 15 Creatinine 0.9 Creat Clearance w eGFR > 60 POC Glucometer 117.19925 Random Glucose 95 D Calcium 8.6 Total Bilirubin 0.3 D AST 29 D ALT 45 D Alkaline Phosphatase 94 Creatine Kinase 100 Troponin I < 0.02 Total Protein 6.6 Albumin 3.5 01/06/17 01/06/17 17:48 17:47 RBC 4.18 MCV 87.5 MCHC 33.0 RDW 14.1 MPV 9.1 Neutrophils % 82.5 Lymphocytes % 11.4 Monocytes % 4.5 Eosinophils % 1.3 Basophils % 0.3 POC Glucometer 117.21619 - Medications Given in the ED: ED Medications Discontinued Medications Generic Name Dose Route Start Last Admin Trade Name Freq PRN Reason Stop Dose Admin Sodium Chloride 1,000 mls @ 1,000 mls/hr 01/06/17 17:44 01/06/17 18:00 Normal Saline - IV 01/06/17 18:43 1,000 mls/hr ASDIR STA Administration Medical Decision Making - Medical Decision Making Endorsed to me by NIDIA Dhaliwal to follow trop and disposition 01/06/17 19:42 d/w with the patient the plan to keep him for repeat trop at midnight. Patient states he is feeling better and wants to leave. He has to drive 65 miles home and would just want to follow up with pmd in the AM. Patient understands the risk which includes Patient AMA *DC/Admit/Observation/Transfer Diagnosis at time of Disposition: Pre-syncope - Discharge Dispostion Disposition: AGAINST MEDICAL ADVICE Condition at time of disposition: Stable - Referrals Referrals: Shmuel Balderas MD [Primary Care Provider] - - Patient Instructions Printed Discharge Instructions: DI for Syncope in Adults (Fainting) Additional Instructions: Your Discharge Instructions: You must call primary care physician within 24 hours to arrange follow-up. Return to the Emergency Department with any new, persistent or worsening symptoms, for fever, chills, SOB, dizziness or any other concerning changes that may occur.
--- NOTE | 2017-01-07 14:20 | EKG ---
Test Reason : Blood Pressure : / mmHG Vent. Rate : 063 BPM Atrial Rate : 063 BPM P-R Int : 144 ms QRS Dur : 088 ms QT Int : 424 ms P-R-T Axes : 057 009 033 degrees QTc Int : 433 ms NORMAL SINUS RHYTHM NORMAL ECG WHEN COMPARED WITH ECG OF 22-DEC-2016 21:17, VENT. RATE HAS DECREASED BY 31 BPM Confirmed by VIK ERICKSON MD ([id number]) on 01/07/2017 2:20:32 PM Referred By: Confirmed By:VIK ERICKSON MD
== END 2017-01-06 19:53 | disposition left against medical advice (07) ==
LOC: JER 16:51
PROC: 3E0337Z Introduction of Electrolytic and Water Balance Substance into Peripheral Vein, Percutaneous Approach (ICD-10-PCS; principal; 2017-01-06)
DX: R55 Syncope and collapse (principal); E11.9 Type 2 diabetes mellitus without complications; Z79.4 Long term (current) use of insulin; Z96.41 Presence of insulin pump (external) (internal); I25.10 Atherosclerotic heart disease of native coronary artery without angina pectoris; Z98.61 Coronary angioplasty status; I10 Essential (primary) hypertension; E78.00 Pure hypercholesterolemia, unspecified; J45.909 Unspecified asthma, uncomplicated; J44.9 Chronic obstructive pulmonary disease, unspecified
CPT/HCPCS: 36415; 71010-TC; 80053; 82550; 84484; 85025; 93005; 93010; 96360; 99283-25

== ENCOUNTER 2017-01-28 10:32 | Day surgery (SDC) | payer OTHER ==
[2017-01-28 11:33] VITALS: BMI 26.5
[2017-01-28] MEDS ORDERED: PROPOFOL 20 ML ONE ×2 (11:54)
[2017-01-28 13:05] VITALS: TEMP 98.6
[2017-01-28 13:56] VITALS: BP 116/61; PULSE 51
--- NOTE | 2017-01-29 16:04 | PATH ---
Surgical Pathology Report Patient Name: CHRISTAL MOSLEY [facility]. Rec. #: [id number] /Age/Gender: 1955 (Age: 61) / M Account: [id number] Location: [facility]-ENDOSCOPY Taken: 01/28/2017 Received: 01/28/2017 Reported: 01/29/2017 Physicians: Mik Enamorado M.D. Specimen(s) Received A: RECTO-SIGMOID POLYPS B: BX DESCENDING COLON POLYP Clinical History History of polyp Hemorrhoid polyps, diverticulosis Final Diagnosis A. COLON, RECTOSIGMOID, BIOPSY: COLONIC MUCOSA WITH SMALL BENIGN LYMPHOID AGGREGATE WITHIN LAMINA PROPRIA. B. COLON, DESCENDING, BIOPSY: TUBULAR ADENOMA. Electronically Signed Anders Valles M.D. Gross Description A. Received in formalin, labeled "biopsy polyp rectosigmoid" is a ferguson, irregular portion of soft tissue measuring 0.3 cm. in greatest dimension. The specimen is submitted in toto in one cassette. B. Received in formalin, labeled "polyp descending colon" is a ferguson, polypoid portion of soft tissue measuring 0.5 cm. in greatest dimension. The specimen is submitted in toto in one cassette. DL/01/28/2017 saudi01/28/2017
== END 2017-01-28 13:55 | disposition home or self-care (01) ==
LOC: JASU-ENDO 10:32
PROVIDERS: ATTEND Internal Medicine Gastroenterology
PROC: 0DBN8ZX Excision of Sigmoid Colon, Via Natural or Artificial Opening Endoscopic, Diagnostic (ICD-10-PCS; 2017-01-28)
PROC: 0DBM8ZX Excision of Descending Colon, Via Natural or Artificial Opening Endoscopic, Diagnostic (ICD-10-PCS; principal; 2017-01-28 11:30)
DX: Z51.11 Encounter for antineoplastic chemotherapy (principal); K57.30 Diverticulosis of large intestine without perforation or abscess without bleeding; D12.7 Benign neoplasm of rectosigmoid junction; D12.4 Benign neoplasm of descending colon; K64.8 Other hemorrhoids; Z86.010 Personal history of colon polyps
CPT/HCPCS: 88305-TC

== ENCOUNTER 2019-02-12 20:58 | Observation (INO) | payer OTHER ==
[2019-02-12 21:10] VITALS: BMI 32.5
--- NOTE | 2019-02-12 21:10 | PDOC ---
Rapid Medical Evaluation Time Seen by Provider: 02/12/19 21:04 Medical Evaluation: Allergies Allergy/AdvReac Type Severity Reaction Status Date / Time No Known Drug Allergies Allergy Verified 01/06/17 17:06 DUST Allergy Mild Uncoded 01/06/17 17:06 GRASS Allergy Mild Uncoded 01/06/17 17:06 02/12/19 21:12 Pt c/o: sent for admission by heath, recent dx of chf, lower ext edema and cough, on o2 at home prn Pt on brief exam: lcta, 2 + pitting edema roge, vss pt ordered for: labs, cxr, ekg Pt to proceed to the ED Discharge Disposition - Diagnosis Congestive heart failure Edema Qualifiers: Edema type: unspecified Qualified Code(s): R60.9 - Edema, unspecified - Referrals - Patient Instructions - Post Discharge Activity
--- NOTE | 2019-02-12 21:25 | PDOC ---
History of Present Illness - General Chief Complaint: Shortness of Breath Stated Complaint: CHEST PAIN/SWOLLEN LEGS/LIGHT HEADED Time Seen by Provider: 02/12/19 21:04 - History of Present Illness Initial Comments: 02/12/19 21:59 Aj Lima is a 63yM with PMHx of CAD, diabetes w radiculopathy, DVT, chronic pancreatitis, L Alma palsy, LENY, supernumerary kidney, past illicit drug use presenting with bilateral lower extremity edema. 2 weeks ago, he noticed progressively worsening roge LE edema parasthesia and pain, lethargy, worsening AB distension, intermittent L chest pain and dyspnea worse w exertion. Also complains of daily head banging and bilateral arm tremors lasting 5 sec. Was sent to ED by PCP for evaluation of congestive heart failure. Uses supplemental O2 at night. No recent travel. Denies fever, n/v, AB pain, urinary/bowel mvmt changes. Past History - Past Medical History Allergies/Adverse Reactions: Allergies Allergy/AdvReac Type Severity Reaction Status Date / Time No Known Drug Allergies Allergy Verified 02/12/19 21:10 DUST Allergy Mild Uncoded 02/12/19 21:10 GRASS Allergy Mild Uncoded 02/12/19 21:10 Home Medications: Ambulatory Orders Insulin Pump Cartridge [Omnipod] 1 each SQ ASDIR 08/25/13 Pregabalin [Lyrica] 150 mg PO BID 11/22/15 Albuterol 0.083% Nebulizer Rose Marie [Ventolin 0.083% Nebulizer Soln -] 1 neb NEB Q4H PRN #30 vial 07/24/16 Albuterol Sulfate Inhaler - [Ventolin HFA Inhaler -] 2 inh PO Q4H PRN #1 inh 10/05 Simvastatin 10 mg PO DAILY 12/23/16 Aspirin Coated [Ecotrin -] 81 mg PO DAILY #30 tab 12/25/16 Budesonide/Formeterol Fumarate [SYMBICORT 160/4.5mcg -] 1 inh IH PRN PRN Lisinopril [Prinivil] 1 tab PO DAILY 01/28/17 Sulfamethoxazole/Trimethoprim [Bactrim DS -] 1 tab PO DAILY 01/28/17 Umeclidinium [place] [Incruse Ellipta] 62.5 mcg IH PRN 01/28/17 predniSONE [Deltasone -] 20 mg PO PRN 01/28/17 Anemia: Yes Asthma: Yes Cancer: No Cardiac Disorders: Yes (HAD ANGIOPLASTYx2 no stent) CVA: No COPD: Yes CHF: No Dementia: No Diabetes: Yes (IDDM-INSULIN PUMP) GI Disorders: Yes (GERD,) Disorders: No HTN: No Hypercholesterolemia: Yes Liver Disease: (PANCREATITIS DUE TO TRAUMA) Seizures: No Thyroid Disease: No Other medical history: sleep apnea - Surgical History Abdominal Surgery: No Appendectomy: No Cardiac Surgery: Yes (ANGIOPLASTY) Cholecystectomy: No Lung Surgery: No Neurologic Surgery: No Orthopedic Surgery: Yes (LEFT ARTHROSCOPY) - Immunization History Immunization Up to Date: Yes - Suicide/Smoking/Psychosocial Hx Smoking Status: Yes Smoking History: Former smoker Have you smoked in the past 12 months: No Number of Cigarettes Smoked Daily: 2 If you are a former smoker, when did you quit?: SEPTEMBER 2015 Information on smoking cessation initiated: No 'Breaking Loose' booklet given: 01/06/17 Hx Alcohol Use: No Drug/Substance Use Hx: No Substance Use Type: None Hx Substance Use Treatment: No Review of Systems - Review of Systems Constitutional: No: Chills, Fever HEENTM: No: Eye Pain, Nose Pain, Nose Congestion, Throat Pain Respiratory: Yes: SOB with Exertion. No: Cough Cardiac (ROS): Yes: Chest Pain (left side, under nipple). No: Edema, Palpitations, Syncope, Chest Tightness ABD/GI: Yes: Abdominal Distended. No: Constipated, Diarrhea, Nausea, Poor Fluid Intake, Vomiting : No: Burning, Dysuria, Discharge, Hematuria, Incontinence, Pain, Urgency Musculoskeletal: No: Back Pain, Joint Pain, Joint Swelling, Muscle Pain, Muscle Weakness Integumentary: No: Bruising, Change in Color, Change in Hair/Nails Neurological: Yes: Headache, Paresthesia (roge LE), Tremors. No: Numbness, Seizure, Ataxia, Dizziness Psychiatric: No: Anxiety, Depression Endocrine: No: Excessive Sweating, Flushing, Intolerance to Cold, Intolerance to Heat Hematologic/Lymphatic: Yes: Blood Clots. No: Anemia, Easy Bleeding *Physical Exam - Vital Signs Last Vital Signs Temp Pulse Resp BP Pulse Ox 98 F 82 18 136/67 97 02/12/19 21:05 02/12/19 21:05 02/12/19 21:05 02/12/19 21:05 02/12/19 21:05 - Physical Exam General Appearance: Yes: Nourished, Appropriately Dressed. No: Apparent Distress, Alcohol on Breath, Intoxicated HEENT: positive: EOMI, MARLON, Normal Voice, Hearing Grossly Normal. negative: Pale Conjunctivae, Scleral Icterus (R), Scleral Icterus (L) Respiratory/Chest: positive: Rhonchi. negative: Chest Tender, Crackles, Rales, Stridor, Wheezing Cardiovascular: positive: Regular Rhythm, Regular Rate, S1, S2. negative: Edema , Murmur Gastrointestinal/Abdominal: positive: Normal Bowel Sounds, Soft. negative: Tender, Flat, Organomegaly, Pulsatile Mass, Distended, Guarding, Rebound, Tenderness Musculoskeletal: positive: Normal Inspection. 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 negative: Confused, Disoriented ED Treatment Course - LABORATORY CBC & Chemistry Diagram: 02/12/19 22:00 02/12/19 22:00 Medical Decision Making - Medical Decision Making 02/12/19 22:09 CXR EKG CBC CMP lipase trop BNP UA duplex LE US hgb 11, lipase 20, glucose 240, ALP 130, BNP 220 UA, duplex US, trop neg EKG normal CXR shows cardiomegaly, interstitial edema given 20 lasix per inpatient team Aj Lima is a 63yM with PMHx of CAD, diabetes w radiculopathy, DVT, chronic pancreatitis, L Alma palsy, LENY, supernumerary kidney, past illicit drug use presenting with bilateral lower extremity edema. Likely CHF d/t abdominal and roge LE edema, dyspnea, cardiac risk factors. CXR shows cardiomegaly, interstitial edema. Given 20 lasix per inpatient team. Unlikely ACS bc trop negative, normal EKG. Pancreatitis exacerbation ruled out w low lipase. Negative duplex US makes PE unlikely. Plan to admit for CHF management in setting of ABD/LE edema, dyspnea, cardiac risk factors, past positive stress test *DC/Admit/Observation/Transfer Diagnosis at time of Disposition: Congestive heart failure Qualifiers: Heart failure type: unspecified Heart failure chronicity: unspecified Qualified Code(s): I50.9 - Heart failure, unspecified Edema Qualifiers: Edema type: unspecified Qualified Code(s): R60.9 - Edema, unspecified - Referrals - Patient Instructions - Post Discharge Activity
--- NOTE | 2019-02-12 21:40 | PDOC ---
Documentation entered by Yoseph Macias SCRIBE, acting as scribe for Gerardo Daniel MD. Gerardo Daniel MD: This documentation has been prepared by the Colleen salvador Elijah, SCRIBE, under my direction and personally reviewed by me in its entirety. I confirm that the documentation accurately reflects all work, treatment, procedures, and medical decision making performed by me. Attending Attestation - Resident Resident Name: Gregory Browning - ED Attending Attestation I have performed the following: I have examined & evaluated the patient, The case was reviewed & discussed with the resident, I agree w/resident's findings & plan - HPI HPI: 02/12/19 22:50 Patient is a 63 year old male with a significant past medical history of DM, DVT COPD and HLD who presents to the ED with Bilateral Lower Extremity swelling lasting for x2 days. Patient also reports dyspnea on exertion and left sided chest pain. Patient was sent in by his PCP today to be evaluated for his presenting symptoms. Denies Fever, Nausea, Vomiting Allergies: NKDA PCP: Dr. Balderas - Physicial Exam PE: 02/13/19 01:10 Agree with exam as documented by resident Bilateral basilar crackles +pitting edema up bilateral extremities - Medical Decision Making 02/13/19 01:10 Sent by his pcp for evaluation of worsening HF, edema f/u labs, cxr, ekg dispo admit
--- NOTE | 2019-02-12 21:54 | PDOC ---
*Physical Exam - Vital Signs Last Vital Signs Temp Pulse Resp BP Pulse Ox 98 F 82 18 136/67 97 02/12/19 21:05 02/12/19 21:05 02/12/19 21:05 02/12/19 21:05 02/12/19 21:05 ED Treatment Course - LABORATORY CBC & Chemistry Diagram: 02/12/19 22:00 02/12/19 22:00 Medical Decision Making - Medical Decision Making 02/12/19 22:39 Patient seen and evaluated with Dr. Browning 63 year old male with a PMH of COPD (on 2 L NC O2 PRN) presents with 1 week h/ o worsening B/L LE edema + worsening CISNEROS. Evaluated by PMD and sent in for evaluation of new onset CHF. EKG, Troponin, BNP, CXR and plan for admission. 02/12/19 22:45 02/13/19 00:42 EKG non-ischemic as documented in resident note BNP 219 02/13/19 03:23 CXR shows mild cardiomegaly, no consolidation/infiltrate/effusion Case d/w Dr. Barry (Hospitalist) will admit for further evaluation including DARREN Clinical Impression: Ischemic Cardiomyopathy *DC/Admit/Observation/Transfer Diagnosis at time of Disposition: Congestive heart failure Qualifiers: Heart failure type: unspecified Heart failure chronicity: unspecified Qualified Code(s): I50.9 - Heart failure, unspecified Edema Qualifiers: Edema type: unspecified Qualified Code(s): R60.9 - Edema, unspecified - Referrals - Patient Instructions - Post Discharge Activity
[2019-02-12 22:45] LABS: BASO % 0.4 % (0-2.0); HEMATOCRIT 33.3 % (35.4-49); HEMOGLOBIN 11.1 GM/dL (11.7-16.9); LYMPH % 25.7 % (8-40); MCH 29.2 pg (25.7-33.7); MCHC 33.4 g/dl (32.0-35.9); MEAN CELL VOLUME 87.4 fl (80-96); MEAN PLT VOLUME 9.6 fl (7.5-11.1); MONO % 6.5 % (3.8-10.2); NEUT % 64.4 % (42.8-82.8); PLATELET COUNT 136 K/MM3 (134-434); RBC 3.81 M/mm3 (4.00-5.60); WHITE BLOOD COUNT 5.3 K/mm3 (4.0-10.0)
[2019-02-12 23:09] LABS: ALBUMIN 3.6 g/dl (3.4-5.0); BILIRUBIN,TOTAL 0.2 mg/dL (0.2-1); BLOOD UREA NITROGEN 10.4 mg/dL (7-18); CALCIUM 8.4 mg/dL (8.5-10.1); CREATININE 1.3 mg/dL (0.55-1.3); MAGNESIUM 2.1 mg/dL (1.8-2.4); POTASSIUM 3.7 mmol/L (3.5-5.1); TOT PROT 6.6 g/dl (6.4-8.2)
[2019-02-12 23:27] LABS: PH,URINE 5.5 (5.0-8.0); URINE APPEARANCE CLEAR; URINE BILIRUBIN NEGATIVE (NEGATIVE); URINE COLOR YELLOW; URINE GLUCOSE (UA) NEGATIVE (NEGATIVE); URINE KETONE NEGATIVE (NEGATIVE); URINE LEUK ESTERASE NEGATIVE (NEGATIVE); URINE NITRITE NEGATIVE (NEGATIVE); URINE PROTEIN NEGATIVE (NEGATIVE); URINE UROBILINOGEN 0.2 mg/dL (0.2-1.0)
[2019-02-13] MEDS ORDERED: FUROSEMIDE 40 MG/4 ML INJECTABLE VIAL IVPUSH ONE (03:57)
--- NOTE | 2019-02-13 03:59 | HP ---
CHIEF COMPLAINT: Worsening leg swelling PCP: Dr. Balderas HISTORY OF PRESENT ILLNESS: 63M with PMH significant for recently diagnosed CHF, COPD (home O2 of 2.5), DM Type I, CAD, chronic pancreatitis, DVT, HTN, HLD who presents with worsening swelling of his lower extremities bilaterally. He reports that over the last week his legs have been notably swollen when he sits or ambulates, in addition to cramping pains that have been recurring for months. He went to his interpretive program coordinator today for the swelling and was sent to the hospital, due to concern of worsening CHF. He has not had any changes in his diet, and states that he is compliant with his medications. He notes that he last took his steroids about 1 month ago. Of note patient describes a stabbing left sided chest pain that comes and goes. He did not associate it with exertion, but noted it was intermittent chest pain and he was not experiencing it when speaking to me. He also notes he has been consistently experiencing his neuropathy in his lower extremities, but there is a new sense of numbness in his upper extremities that will occur without a triggering event. He believes his COPD has been worse over the past week due to the increased temperatures, so he has been staying home. Patient also notes a worsening orthopnea, he sleeps sitting upright in a chair 3-4 nights out of the week, and on 4 pillows the remainder of the week. ER course was notable for: (1)EKG was completed: showed sinus bradycardia (2)Chest X-ray was completed: did not show any increased vascular congestion, was relatively unchanged compared to X-Ray from 2 years prior. (3)Patient was noted to have an elevated BNP 219.3 and glucose of 239. Recent Travel: None PAST MEDICAL HISTORY: COPD (Home oxygen 2.5), CAD, CHF, DM I, DVT, Chronic Pancreatitis, Left sided Yost's Palsy, LENY, Supernumerary kidney, PAST SURGICAL HISTORY: shoulder surgery, b/l knee arthroscopy, angioplasty x2, vasectomy Social History: Smoking: Former Smoker with 94 pack/year history. Alcohol: Stopped drinking 35 years ago Drugs: Former marijuana user, but no use within the last 3 years. Family History: HTN, HLD, MD, Diabetes on both sides of the family Allergies No Known Drug Allergies Allergy (Verified 02/12/19 21:10) DUST Allergy (Mild, Uncoded 02/12/19 21:10) GRASS Allergy (Mild, Uncoded 02/12/19 21:10) HOME MEDICATIONS: Home Medications Medication Instructions Recorded Insulin Pump Cartridge [Omnipod] 1 each SQ ASDIR 08/25/13 Pregabalin [Lyrica] 150 mg PO BID 11/22/15 Albuterol 0.083% Nebulizer Rose Marie 1 neb NEB Q4H PRN #30 vial 07/24/16 [Ventolin 0.083% Nebulizer Soln -] Albuterol Sulfate Inhaler - 2 inh PO Q4H PRN #1 inh 07/24/16 [Ventolin HFA Inhaler -] Simvastatin 10 mg PO DAILY 12/23/16 Aspirin Coated [Ecotrin -] 81 mg PO DAILY #30 tab 12/25/16 Budesonide/Formeterol Fumarate 1 inh IH PRN PRN 01/28/17 [SYMBICORT 160/4.5mcg -] Lisinopril [Prinivil] 1 tab PO DAILY 01/28/17 Sulfamethoxazole/Trimethoprim 1 tab PO DAILY 01/28/17 [Bactrim DS -] Umeclidinium Worth [Incruse 62.5 mcg IH PRN 01/28/17 Ellipta] predniSONE [Deltasone -] 20 mg PO PRN 01/28/17 REVIEW OF SYSTEMS CONSTITUTIONAL: chills, headache, weight change(30 lb gain in 1 year) Absent: fever, diaphoresis, generalized weakness, malaise, loss of appetite, HEENT: Absent: rhinorrhea, nasal congestion, throat pain, throat swelling, difficulty swallowing, mouth swelling, ear pain, eye pain, visual changes CARDIOVASCULAR: Absent: chest pain, syncope, palpitations, irregular heart rate, lightheadedness , peripheral edema RESPIRATORY: productive cough, shortness of breath, orthopnea, dyspnea with exertion Absent: wheezing GASTROINTESTINAL:abdominal pain, abdominal distension, Absent: nausea, vomiting, diarrhea, constipation, melena GENITOURINARY: Absent: dysuria, frequency, urgency, hesitancy, hematuria, flank pain, genital pain MUSCULOSKELETAL: Absent: myalgia, arthralgia, joint swelling, back pain, neck pain SKIN: Absent: rash, itching, pallor NEUROLOGIC: Absent: headache, dizziness, unsteady gait, seizure, mental status changes, bladder or bowel incontinence PHYSICAL EXAMINATION Vital Signs - 24 hr 02/12/19 02/12/19 02/13/19 21:05 21:46 01:38 Temperature 98 F Pulse Rate 82 71 Pulse Rate [ 71 Right Ulnar] Respiratory 18 20 Rate Blood Pressure 136/67 Blood Pressure 109/68 [Right Arm] O2 Sat by Pulse 97 95 97 Oximetry (%) GENERAL: Awake, alert, and fully oriented, in no acute distress. HEAD: Normal with no signs of trauma. EYES: Pupils equal, round and reactive to light, extraocular movements intact, sclera anicteric, conjunctiva clear. EARS, NOSE, THROAT: Ears normal, nares patent, oropharynx clear without exudates. Moist mucous membranes. Nasal Cannula in place, 2LPM. NECK: Normal range of motion, supple without lymphadenopathy, or masses. LUNGS: Mild JVD, Breath sounds equal, clear to auscultation bilaterally. No wheezes, and no crackles. No accessory muscle use. HEART: Bradycardic and sinus rhythm, normal S1 and S2 without murmur, rub or gallop. ABDOMEN: Soft, nontender, not distended, normoactive bowel sounds, no guarding, no rebound, no masses. . UPPER EXTREMITIES: 2+ pulses, warm, well-perfused. No cyanosis. No clubbing. No peripheral edema. LOWER EXTREMITIES: 2+ pulses, warm, well-perfused. 1+ pitting edema. Tender to palpation in the lower leg. NEUROLOGICAL: Cranial nerves II-XII grossly intact. Normal speech. Laboratory Results - last 24 hr 02/12/19 02/12/19 02/12/19 20:48 22:00 22:00 WBC 5.3 RBC 3.81 L Hgb 11.1 L Hct 33.3 L MCV 87.4 MCH 29.2 MCHC 33.4 RDW 14.0 Plt Count 136 MPV 9.6 Absolute Neuts (auto) 3.4 Neutrophils % 64.4 D Lymphocytes % 25.7 D Monocytes % 6.5 Eosinophils % 3.0 D Basophils % 0.4 Nucleated RBC % 0 Sodium 141 Potassium 3.7 Chloride 106 Carbon Dioxide 30 Anion Gap 6 L BUN 10.4 Creatinine 1.3 Est GFR (CKD-EPI)AfAm 67.78 Est GFR (CKD-EPI)NonAf 58.48 POC Glucometer Random Glucose 239 H Calcium 8.4 L Magnesium 2.1 Total Bilirubin 0.2 AST 20 ALT 34 Alkaline Phosphatase 131 H Creatine Kinase 185 Creatine Kinase Index 1.1 CK-MB (CK-2) 2.1 Troponin I < 0.02 B-Natriuretic Peptide Total Protein 6.6 Albumin 3.6 Lipase 19 L Urine Color Urine Appearance Urine pH Ur Specific [place]range Urine Protein Urine Glucose (UA) Urine Ketones Urine Blood Urine Nitrite Urine Bilirubin Urine Urobilinogen Ur Leukocyte Esterase 02/12/19 02/12/19 02/12/19 22:00 22:00 22:00 WBC RBC Hgb Hct MCV MCH MCHC RDW Plt Count MPV Absolute Neuts (auto) Neutrophils % Lymphocytes % Monocytes % Eosinophils % Basophils % Nucleated RBC % Sodium Potassium Chloride Carbon Dioxide Anion Gap BUN Creatinine Est GFR (CKD-EPI)AfAm Est GFR (CKD-EPI)NonAf POC Glucometer Random Glucose Calcium Magnesium Total Bilirubin AST ALT Alkaline Phosphatase Creatine Kinase Creatine Kinase Index CK-MB (CK-2) Troponin I B-Natriuretic Peptide 219.3 H Total Protein Albumin Lipase Cancelled Urine Color Yellow Urine Appearance Clear Urine pH 5.5 Ur Specific [place] 1.006 L Urine Protein Negative Urine Glucose (UA) Negative Urine Ketones Negative Urine Blood Negative Urine Nitrite Negative Urine Bilirubin Negative Urine Urobilinogen 0.2 Ur Leukocyte Esterase Negative 02/12/19 22:28 WBC RBC Hgb Hct MCV MCH MCHC RDW Plt Count MPV Absolute Neuts (auto) Neutrophils % Lymphocytes % Monocytes % Eosinophils % Basophils % Nucleated RBC % Sodium Potassium Chloride Carbon Dioxide Anion Gap BUN Creatinine Est GFR (CKD-EPI)AfAm Est GFR (CKD-EPI)NonAf POC Glucometer 217 Random Glucose Calcium Magnesium Total Bilirubin AST ALT Alkaline Phosphatase Creatine Kinase Creatine Kinase Index CK-MB (CK-2) Troponin I B-Natriuretic Peptide Total Protein Albumin Lipase Urine Color Urine Appearance Urine pH Ur Specific Lagrange Urine Protein Urine Glucose (UA) Urine Ketones Urine Blood Urine Nitrite Urine Bilirubin Urine Urobilinogen Ur Leukocyte Esterase ASSESSMENT/PLAN: 63 M with PMH significant for HTN, HLD, CHF, COPD, DM, who presents today with b /l leg edema and worsening exertional dyspnea most likely related to early stage CHF. He also notes nonspecific neuro symptoms which may be an extension of his diabetic neuropathy. 1) Lower extremity Edema most likely due to CHF -Previous echo is from 2012, and stress test from 2017. Given newer symptoms should repeat Echo. Has elevated BNP and cardiac risk factors. -He may potentially have PAD with his leg tenderness so obtain Lower extremity Doppler. -Echo, and can medically optimize once we can categorize his CHF. -Admit to telemetry for continuos monitoring -20 mg IV lasix -I&O to see how patient is responding to 20 mg IV lasix and how we can titrate dosing -Daily weights -Lisinopril 5 mg PO Qdaily -Simvastatin 10 mg PO Qdaily -ASA 81 mg PO Qdaily -Cardiology consult 2) Nonspecific neuro symptoms -Patient complains of numbness and headaches, with no triggering events. -CTA head and brain to rule out any carotid dissection. -Vitamin B12 and Folate levels. -Anemia workup with iron studies -Continue Lyrica 150 mg PO BID 3) Hx COPD -Patient complained of worsening symptoms and productive dry cough in recent weeks. -Continue on home oxygen level of 2.5L NC. -Albuterol PRN -Budenoside Formeterol PRN -Umeclidinum Worth PRN -Pulmonary Consult 4) Hx of Diabetes -Has elevated blood sugar of 239, says home glucose can be up to 300. Needs tighter control, which may also aid his neuropathy symptoms. -Follow up A1C level -Continue Insulin pump -BGM ACHS -Consulting Endocrinolgy 5) Hx of LENY -BiPAP at night 6) Elevated Alk Phos -GGT levels DVT Prophylaxis: Lovenox 40 mg SQ Daily F: Currently not on fluids E: Follow BMP N: Sodium controlled diabetic diet Dispo: Admit to Telemetry Problem List - Problem (1) Congestive heart failure Code(s): I50.9 - HEART FAILURE, UNSPECIFIED Qualifiers: Heart failure type: unspecified Heart failure chronicity: unspecified Qualified Code(s): I50.9 - Heart failure, unspecified (2) Edema Code(s): R60.9 - EDEMA, UNSPECIFIED Qualifiers: Edema type: unspecified Qualified Code(s): R60.9 - Edema, unspecified (3) COPD (chronic obstructive pulmonary disease) Code(s): J44.9 - CHRONIC OBSTRUCTIVE PULMONARY DISEASE, UNSPECIFIED (4) Diabetes mellitus, insulin dependent (IDDM), uncontrolled Code(s): E10.65 - TYPE 1 DIABETES MELLITUS WITH HYPERGLYCEMIA Visit type - Emergency Visit Emergency Visit: Yes ED Registration Date: 02/13/19 Care time: The patient presented to the Emergency Department on the above date and was hospitalized for further evaluation of their emergent condition. - New Patient This patient is new to me today: Yes Date on this admission: 02/13/19 - Critical Care Critical Care patient: No ATTENDING PHYSICIAN STATEMENT I saw and evaluated the patient. I reviewed the resident's note and discussed the case with the resident. I agree with the resident's findings and plan as documented. SUBJECTIVE: OBJECTIVE: ASSESSMENT AND PLAN:
[2019-02-13] MEDS ORDERED: INSULIN PUMP CARTRIDGE SQ SCH (04:15)
[2019-02-13] MEDS ORDERED: ALBUTEROL SO4 0.083% IH SOL 2.5 MG/3 ML VIAL.NEB. NEB PRN (04:15)
[2019-02-13] MEDS ORDERED: BUDESONIDE/FORMETEROL FUMARATE 160/4.5 mcg INHALER IH PRN (04:15)
[2019-02-13] MEDS ORDERED: PATIENT'S OWN MEDICATION (NON-FORMULARY) (Umeclidinium Bromide [Incruse Ellipta] 62.5 MCG) IH SCH ×2 (04:15→11:30)
--- NOTE | 2019-02-13 04:25 | PN ---
Teaching Attending Note Name of Resident: Erum Raphael ATTENDING PHYSICIAN STATEMENT I saw and evaluated the patient. I reviewed the resident's note and discussed the case with the resident. I agree with the resident's findings and plan as documented. Thank you Dr. Balderas for allowing Maria Elenasukumarsahara to take part in the ongoing care of your patient. Patient seen and examined; please see resident note for further historical information. Briefly, this is a 63 y/o male with a PMH as documented presenting from PCP's office with LE sym edema and parasthesias. He admits to a history of diminishing activity intolerance over the past several months and chronic orthopnea with some PND; he has also been noncompliant with his CPAP. No recent steroid use (states last time was 1 month ago). He does become more SOB than his baseline with activity; he is on ATC O2 via NC for COPD hx. Incidentally notes that he has been getting what sounds like brief, severe moments of head pain associated with temporary change 'in the way his body feels." No focal neuro issues. The headaches are associated with movement, somewhat, and he has not been worked up for this previously. VS, labs, imaging reviewed NAD, AAO, resting in bed on home O2 NC AT EOMI PERRLA +1 pitting edema, mild JVD, sock lines RRR s1/2 Lungs with prolonged expiratory:inspiratory phase, minimal crackles, no wheezes ; w/ sym exp CN2-12 wnl, no fnd Normal mood, appropriate behavior CXR shows some stereotyped changes of CHF with repeat image pending EKG reviewed CTA head and neck pending Prior stress test reviewed Arterial dopplers pending ASSESSMENT AND PLAN: Patient presents with b/l LE edema and some CISNEROS and exercise intolerance worse than his baseline; he is not hypoxic and is hemodynamically stable and afebrile. Incidentally he tells me that he has been having sudden severe headaches accompanied by nonspecific neuro sx. Given elevated BNP with cardiac risks (prior + NST, etc.) as well as history, CXR findings, we will give 20 IV lasix QD and and obtain echo. QD weights, optimize Mg and K. Suspecting potential for CHF; he will need to be on GDMT prior to DC if indeed he does have a reduced EF. He will be continued on his insulin pump and A1c will be checked; he runs up to [address] Balderas for pump adjustment. Continue him on his home inhalers for COPD; doesn't appear to be in exacerbation (orthopnea, PND, CXR findings alongside lack of wheezes and COPD triggers makes less likely). 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 Checking CTA head/neck to r/o dissection, etc. Consider neuro consult if sx not resolved. No focal neuro sx but given story and risk factors. For neuropathy contine lyrica; will need better glycemic control so consulting Dr. Balderas and can check B12. # LE Edema, r/o CHF # Hx CAD (Stress test reviewed) # Headaches with nonspecific neuro sx # Worsening DM neuropathy on lyrica # Hx COPD on O2, GOLD stage unknown # Hx HTN # LENY noncompliant with CPAP # Obesity (BMI 32) # Uncontrolled DM with hyperglycemia, A1c pending # Allergies # Mildly elevated Alk Phos, GGT pending # Hypocalcemia # Normocytic Anemia # Likely PAD # Hx HLD # Hx GERD Full Code
[2019-02-13] MEDS ORDERED: FUROSEMIDE 40 MG/4 ML INJECTABLE VIAL ONE (04:44)
[2019-02-13] MEDS ORDERED: LISINOPRIL 5 MG TABLET (FP) PO SCH (10:00)
[2019-02-13] MEDS ORDERED: PATIENT'S OWN MEDICATION (NON-FORMULARY) (Simvastatin [Simvastatin] 10 MG) PO SCH (10:00)
[2019-02-13] MEDS ORDERED: FUROSEMIDE 40 MG/4 ML INJECTABLE VIAL IVPUSH SCH ×2 (10:00→11:15)
[2019-02-13] MEDS ORDERED: ENOXAPARIN NA (PORCINE) 40 MG/0.4 ML DISP.SYRIN SQ SCH (10:00)
[2019-02-13] MEDS ORDERED: PREGABALIN 75 MG CAPSULE PO SCH ×2 (10:00→22:00)
[2019-02-13] MEDS ORDERED: ASPIRIN COATED 81 MG TABLET.EC PO SCH (10:00)
[2019-02-13] MEDS ORDERED: PREGABALIN 50 MG CAPSULE ONE ×2 (10:33→11:46)
[2019-02-13] MEDS ORDERED: PREGABALIN 100 MG CAPSULE ONE ×2 (10:33→11:46)
[2019-02-13] MEDS ORDERED: ASPIRIN 81 MG CHEWABLE TABLETS ONE (10:33)
--- NOTE | 2019-02-13 10:37 | ECHO ---
Name: CHRISTAL MOSLEY Exam:Adult Echocardiogram Study Date: 02/13/2019 09:24 AM Age: 63 yrs Reason For Study: CHF Height: 70 in Weight: 227 lb BSA: 2.2 m2 MMode/2D Measurements & Calculations IVSd: 0.75 cm Ao root diam: 2.6 cm LVIDd: 5.5 cm LA dimension: 3.5 cm LVIDs: 3.7 cm LVPWd: 0.77 cm EDV(Teich): 146.1 ml LVOT diam: 2.1 cm ESV(Teich): 59.1 ml Doppler Measurements & Calculations MV E max logan: 75.5 cm/sec Ao V2 max: 142.5 cm/sec MV A max logan: 22.7 cm/sec Ao max P.1 mmHg MV E/A: 3.3 Ao V2 mean: 103.1 cm/sec MV dec time: 0.25 sec Ao mean P.7 mmHg Ao V2 VTI: 34.1 cm DEANNE(I,D): 1.9 cm2 DEANNE(V,D): 1.8 cm2 LV V1 max P.1 mmHg SV(LVOT): 63.4 ml LV V1 mean P.1 mmHg LV V1 max: 72.3 cm/sec LV V1 mean: 48.3 cm/sec LV V1 VTI: 17.5 cm TR max logan: 214.8 cm/sec PI end-d logan: 97.7 cm/sec TR max P.5 mmHg Med Peak E' Logan: 7.2 cm/sec Med E/e': 10.5 Lat Peak E' Logan: 2.7 cm/sec Lat E/e': 27.7 Procedure The patient was in a bradycardic rhythm during the exam. Left Ventricle Ejection Fraction = 50-55%. The transmitral spectral Doppler flow pattern is normal for age. Right Ventricle The right ventricle is grossly normal size. The right ventricular systolic function is grossly normal . Atria Normal left and right atrial size and function. Mitral Valve The mitral valve is normal in structure and function. There is no mitral valve stenosis. There is mil d mitral regurgitation. Tricuspid Valve The tricuspid valve is normal in structure and function. There is mild tricuspid regurgitation. Aortic Valve The aortic valve opens well. No hemodynamically significant valvular aortic stenosis. No aortic regur gitation is present. Pulmonic Valve The pulmonic valve is not well seen, but is grossly normal. There is no pulmonic valvular stenosis. Great Vessels The aortic root is normal size. Pericardium/Pleura There is no pericardial effusion. Interpretation Summary The patient was in a bradycardic rhythm during the exam. Ejection Fraction = 50-55%. There is mild mitral regurgitation. There is mild tricuspid regurgitation. There is no pericardial effusion. MD Tello *Radha 02/13/2019 10:36 AM
[2019-02-13] MEDS ORDERED: PREGABALIN 75 MG CAPSULE PO ONE (11:13)
[2019-02-13] MEDS ORDERED: PANTOPRAZOLE 40 MG TABLET (FP) PO SCH (11:15)
--- NOTE | 2019-02-13 11:21 | PN ---
Progress Note, Physician Chief Complaint: patient seen and examined says his leg and ankle swelling is slightly better today to get 40mg iv lasix today he was sent in by PMD for inc leg and ankle welling - Current Medication List Current Medications: Active Medications Albuterol Sulfate (Ventolin 0.083% Nebulizer Soln -) 1 amp NEB Q4H PRN PRN Reason: COUGH Aspirin (Ecotrin -) 81 mg PO DAILY JUAN Atorvastatin Calcium (Lipitor -) 40 mg PO HS JUAN Budesonide/Formoterol Fumarate (Symbicort 160/4.5mcg -) 1 puff IH PRN PRN PRN Reason: SHORT OF BREATH/WHEEZING Enoxaparin Sodium (Lovenox -) 40 mg SQ DAILY JUAN Furosemide (Lasix Injection -) 40 mg IVPUSH DAILY JUAN Lisinopril (Prinivil) 5 mg PO DAILY JUAN Non-Formulary Medication (Insulin Pump Cartridge [Omnipod]) 1 each SQ ASDIR JUAN Last Admin: 02/13/19 05:06 Dose: 1 each Non-Formulary Medication (Umeclidinium [place] [Incruse Ellipta]) 62.5 mcg IH PRN JUAN Pantoprazole Sodium (Protonix -) 40 mg PO BID JUAN Pregabalin (Lyrica -) 150 mg PO ONCE ONE Stop: 02/13/19 11:14 Pregabalin (Lyrica -) 300 mg PO BID JUAN - Objective Vital Signs: Vital Signs Temperature 98 F 02/13/19 05:32 Pulse Rate 71 02/12/19 21:46 Respiratory Rate 20 02/12/19 21:46 Blood Pressure 132/75 02/13/19 05:32 O2 Sat by Pulse Oximetry (%) 103 H 02/13/19 05:32 Constitutional: Yes: Calm Cardiovascular: Yes: Regular Rate and Rhythm, S1, S2 Respiratory: Yes: Diminished Gastrointestinal: Yes: Normal Bowel Sounds, Soft Edema: Yes Neurological: Yes: Alert, Oriented Labs: CBC, BMP 02/12/19 22:00 Problem List - Problems (1) Congestive heart failure Assessment/Plan: iv lasix cardiology consult ef 50-55% mild TR coreg 6.25mg bid and lisinopril 5mg daily Code(s): I50.9 - HEART FAILURE, UNSPECIFIED Qualifiers: Heart failure type: unspecified Heart failure chronicity: unspecified Qualified Code(s): I50.9 - Heart failure, unspecified (2) Edema Assessment/Plan: iv lasix 40mg no DVT Code(s): R60.9 - EDEMA, UNSPECIFIED Qualifiers: Edema type: unspecified Qualified Code(s): R60.9 - Edema, unspecified (3) COPD (chronic obstructive pulmonary disease) Assessment/Plan: symbicort and singulair nebulizer oxygen via nasal canula pulm consult Code(s): J44.9 - CHRONIC OBSTRUCTIVE PULMONARY DISEASE, UNSPECIFIED
[2019-02-13 11:22] LABS: GAMMA GLUTAMYL TRANSPEPTIDASE 41 U/L (5-85); IRON SERUM 50 ug/dL (50-175); IRON SERUM 53 ug/dL (50-175); TOTAL IRON BINDING CAPACITY 330 ug/dL (250-450)
[2019-02-13] MEDS ORDERED: PANTOPRAZOLE 40 MG TABLET (FP) ONE (11:46)
[2019-02-13 11:57] LABS: CHOLESTEROL 205 mg/dL (50-200); HDL CHOLESTEROL 58 mg/dL (40-60); TRIGLYCERIDES 123 mg/dL (0-150)
--- NOTE | 2019-02-13 12:00 | EKG ---
Test Reason : Blood Pressure : / mmHG Vent. Rate : 058 BPM Atrial Rate : 058 BPM P-R Int : 156 ms QRS Dur : 080 ms QT Int : 408 ms P-R-T Axes : 057 -12 018 degrees QTc Int : 400 ms SINUS BRADYCARDIA LOW VOLTAGE QRS WHEN COMPARED WITH ECG OF 06-JAN-2017 18:45, T WAVE AMPLITUDE HAS DECREASED IN ANTERIOR LEADS Confirmed by SHAUNNA CANELA MD ([id number]) on 02/13/2019 12:00:12 PM Referred By: Confirmed By:SHAUNNA CANELA MD
--- NOTE | 2019-02-13 12:03 | CON.CARD ---
Consult Consult Specialty:: Cardiology Referred by:: David Reason for Consultation:: edema - History of Present Illness Chief Complaint: edema History of Present Illness: 63M with PMH significant for recently diagnosed CHF, COPD (home O2 of 2.5), DM Type I, CAD, chronic pancreatitis, DVT, HTN, HLD who presents with worsening swelling of his lower extremities bilaterally for 1-2 weeks. No chest pain, orthopnea or PND. Exercise tolerance is good. Noted with normal ECG and CXR. Normal BNP. Echo 02/13/19: normal EF Duplex 02/13/19: no DVT - History Source History Provided By: Patient, Medical Record - Past Medical History Cardio/Vascular: Yes: HTN, Hyperlipdemia Endocrine: Yes: Diabetes Mellitus - Alcohol/Substance Use Hx Alcohol Use: No - Smoking History Smoking history: Former smoker Have you smoked in the past 12 months: No Aproximately how many cigarettes per day: 2 If you are a former smoker, when did you quit?: SEPTEMBER 2015 Home Medications - Allergies Allergies/Adverse Reactions: Allergies Allergy/AdvReac Type Severity Reaction Status Date / Time No Known Drug Allergies Allergy Verified 02/12/19 21:10 DUST Allergy Mild Uncoded 02/12/19 21:10 GRASS Allergy Mild Uncoded 02/12/19 21:10 - Home Medications Home Medications: Ambulatory Orders Insulin Pump Cartridge [Omnipod] 1 each SQ ASDIR 08/25/13 Pregabalin [Lyrica] 300 mg PO BID 11/22/15 Albuterol 0.083% Nebulizer [place] [Ventolin 0.083% Nebulizer Soln -] 1 neb NEB Q4H PRN #30 vial 07/24/16 Albuterol Sulfate Inhaler - [Ventolin HFA Inhaler -] 2 inh PO Q4H PRN #1 inh 10/05 Aspirin Coated [Ecotrin -] 81 mg PO DAILY #30 tab 12/25/16 Lisinopril [Prinivil] 1 tab PO DAILY 01/28/17 Umeclidinium [place] [Incruse Ellipta] 62.5 mcg IH PRN 01/28/17 predniSONE [Deltasone -] 20 mg PO PRN 01/28/17 Atorvastatin Ca [Lipitor] 40 mg PO HS 02/13/19 Carvedilol [Coreg] 6.25 mg PO BID 02/13/19 Dexlansoprazole [Dexilant] 60 mg PO BID 02/13/19 Linaclotide [Linzess] 145 mcg PO DAILY 02/13/19 Montelukast Sodium [Singulair] 10 mg PO HS 02/13/19 Vital Signs: Vital Signs Temperature 98 F 02/13/19 05:32 Pulse Rate 71 02/12/19 21:46 Respiratory Rate 20 02/12/19 21:46 Blood Pressure 132/75 02/13/19 05:32 O2 Sat by Pulse Oximetry (%) 103 H 02/13/19 05:32 Constitutional: Yes: No Distress, Calm Eyes: Yes: Conjunctiva Clear, EOM Intact HENT: Yes: Atraumatic, Normocephalic Neck: Yes: Trachea Midline Respiratory: Yes: CTA Bilaterally Gastrointestinal: Yes: Normal Bowel Sounds, Soft Cardiovascular: Yes: Regular Rate and Rhythm JVD: Yes Carotid Bruit: No PMI: Non-Displaced Heart Sounds: Yes: S1, S2 Extremities: Yes: WNL Edema: Yes Edema: LLE: 1+, RLE: 1+ Peripheral Pulses WNL: Yes - Other Data Labs, Other Data: CBC, BMP 02/12/19 22:00 Troponin, BNP 02/12/19 02/12/19 20:48 22:00 Troponin I < 0.02 B-Natriuretic Peptide 219.3 H Troponin, BNP 02/12/19 02/12/19 20:48 22:00 Troponin I < 0.02 B-Natriuretic Peptide 219.3 H Imaging - Results X-ray: Report Reviewed (lazaro) EKG: Report Reviewed (sbrady nssttw changes) Assessment/Plan 63M with PMH significant for recently diagnosed CHF, COPD (home O2 of 2.5), DM Type I, CAD, chronic pancreatitis, DVT, HTN, HLD who presents with worsening swelling of his lower extremities bilaterally for 1-2 weeks. No chest pain, orthopnea or PND. Exercise tolerance is good. Noted with normal ECG and CXR. Normal BNP. Echo 02/13/19: normal EF Duplex 02/13/19: no DVT IMP Acute on chronic diastolic chf due to increased water intake. -limit fluids -start lasix 40 mg daily PO -no ACS -no need for further inpatient cardiac testing. -no need for telemetry -follow up with outpatient cardiology
--- NOTE | 2019-02-13 14:32 | DS ---
Physical Examination Vital Signs: Vital Signs Temperature 98 F 02/13/19 05:32 Pulse Rate 57 L 02/13/19 09:00 Respiratory Rate 18 02/13/19 09:00 Blood Pressure 128/66 02/13/19 09:00 O2 Sat by Pulse Oximetry (%) 98 02/13/19 09:00 Constitutional: Yes: Calm Cardiovascular: Yes: Regular Rate and Rhythm, S1, S2 Respiratory: Yes: CTA Bilaterally Gastrointestinal: Yes: Normal Bowel Sounds, Soft Edema: Yes Neurological: Yes: Alert, Oriented Labs: CBC, BMP 02/12/19 22:00 Discharge Summary Reason For Visit: SWELLING OF BOTH LOWER EXTREMITIES Current Active Problems Congestive heart failure (Acute) Edema (Acute) Hospital Course: 63 year old male with a PMH of COPD (on 2 L [place] O2 PRN) presents with 1 week h/ o worsening B/L LE edema + worsening CISNEROS. Evaluated by PMD and sent in for evaluation of new onset CHF. EKG, Troponin, BNP, CXR and plan for admission. admiteed for inc leg selling got iv lasix and now improved seen by cardiology to start po lasix and go home seen by his PMD as well Condition: Improved - Instructions Referrals: Shmuel Balderas MD [Primary Care Provider] - Disposition: HOME - Home Medications Comprehensive Discharge Medication List: Ambulatory Orders Insulin Pump Cartridge [Omnipod] 1 each SQ ASDIR 08/25/13 Pregabalin [Lyrica] 300 mg PO BID 11/22/15 Albuterol 0.083% Nebulizer [place] [Ventolin 0.083% Nebulizer Soln -] 1 neb NEB Q4H PRN #30 vial 07/24/16 Albuterol Sulfate Inhaler - [Ventolin HFA Inhaler -] 2 inh PO Q4H PRN #1 inh 10/05 Aspirin Coated [Ecotrin -] 81 mg PO DAILY #30 tab 12/25/16 Lisinopril [Prinivil] 1 tab PO DAILY 01/28/17 Umeclidinium [place] [Incruse Ellipta] 62.5 mcg IH PRN 01/28/17 predniSONE [Deltasone -] 20 mg PO PRN 01/28/17 Atorvastatin Ca [Lipitor] 40 mg PO HS 02/13/19 Carvedilol [Coreg] 6.25 mg PO BID 02/13/19 Dexlansoprazole [Dexilant] 60 mg PO BID 02/13/19 Linaclotide [Linzess] 145 mcg PO DAILY 02/13/19 Montelukast Sodium [Singulair] 10 mg PO HS 02/13/19
--- NOTE | 2019-02-13 14:38 | CONSULT ---
Consult Consult Specialty:: endocrine Referred by:: dr.saba rosario Reason for Consultation:: dm type 1 - History of Present Illness Chief Complaint: has shortness of breath and leg edema History of Present Illness: 63yM with PMHx of DM1,insulin pump correction use,compliant with care, CAD, radiculopathy, DVT, chronic pancreatitis, L [place] palsy, LENY, supernumerary kidney, presenting with bilateral lower extremity edema. 2 weeks ago, he noticed progressively worsening roge LE edema parasthesia and pain, lethargy, worsening AB distension, intermittent L chest pain and dyspnea worse w exertion.has concerns of high postprandial sugars,denies low sugars,nausea or vomiting. - Past Medical History Cardio/Vascular: Yes: HTN, Hyperlipdemia Endocrine: Yes: Diabetes Mellitus - Alcohol/Substance Use Hx Alcohol Use: No - Smoking History Smoking history: Former smoker Have you smoked in the past 12 months: No Aproximately how many cigarettes per day: 2 If you are a former smoker, when did you quit?: SEPTEMBER 2015 Home Medications - Allergies Allergies/Adverse Reactions: Allergies Allergy/AdvReac Type Severity Reaction Status Date / Time No Known Drug Allergies Allergy Verified 02/12/19 21:10 DUST Allergy Mild Uncoded 02/12/19 21:10 GRASS Allergy Mild Uncoded 02/12/19 21:10 - Home Medications Home Medications: Ambulatory Orders Insulin Pump Cartridge [Omnipod] 1 each SQ ASDIR 08/25/13 Pregabalin [Lyrica] 300 mg PO BID 11/22/15 Albuterol 0.083% Nebulizer [place] [Ventolin 0.083% Nebulizer Soln -] 1 neb NEB Q4H PRN #30 vial 07/24/16 Albuterol Sulfate Inhaler - [Ventolin HFA Inhaler -] 2 inh PO Q4H PRN #1 inh 10/05 Aspirin Coated [Ecotrin -] 81 mg PO DAILY #30 tab 12/25/16 Lisinopril [Prinivil] 1 tab PO DAILY 01/28/17 Umeclidinium [place] [Incruse Ellipta] 62.5 mcg IH PRN 01/28/17 predniSONE [Deltasone -] 20 mg PO PRN 01/28/17 Atorvastatin Ca [Lipitor] 40 mg PO HS 02/13/19 Carvedilol [Coreg] 6.25 mg PO BID 02/13/19 Dexlansoprazole [Dexilant] 60 mg PO BID 02/13/19 Furosemide [Lasix] 40 mg PO DAILY #30 tablet 02/13/19 Linaclotide [Linzess] 145 mcg PO DAILY 02/13/19 Montelukast Sodium [Singulair] 10 mg PO HS 02/13/19 Review of Systems - Review of Systems Constitutional: reports: Lethargy, Weakness Eyes: reports: Blurred Vision HENT: reports: No Symptoms Neck: reports: No Symptoms Cardiovascular: reports: Edema, Shortness of Breath Respiratory: reports: Exercise Intolerance, SOB on Exertion Gastrointestinal: reports: Bloating, Constipation Genitourinary: reports: No Symptoms Breasts: reports: No Symptoms Reported Musculoskeletal: reports: Joint Pain, Joint Swelling, Muscle Pain Integumentary: reports: No Symptoms Neurological: reports: Numbness, Weakness Endocrine: reports: Unexplained Weight Gain Physical Exam Vital Signs: Vital Signs Temperature 98 F 02/13/19 05:32 Pulse Rate 57 L 02/13/19 09:00 Respiratory Rate 18 02/13/19 09:00 Blood Pressure 128/66 02/13/19 09:00 O2 Sat by Pulse Oximetry (%) 98 02/13/19 09:00 Constitutional: Yes: Anxious Eyes: Yes: EOM Intact HENT: Yes: Normocephalic Neck: Yes: Trachea Midline Cardiovascular: Yes: Tachycardia Respiratory: Yes: On Nasal O2, SOB, SOB on Exertion ...Rectal Exam: Yes: Deferred Renal/: Yes: WNL Musculoskeletal: Yes: Joint Swelling, Muscle Pain, Muscle Weakness Extremities: Yes: WNL Edema: Yes Edema: LLE: 2+, RLE: 2+ Peripheral Pulses WNL: Yes Neurological: Yes: Alert, Oriented Labs: CBC, BMP 02/12/19 22:00 Problem List - Problems (1) Congestive heart failure Code(s): I50.9 - HEART FAILURE, UNSPECIFIED Qualifiers: Heart failure type: unspecified Heart failure chronicity: unspecified Qualified Code(s): I50.9 - Heart failure, unspecified (2) Edema Code(s): R60.9 - EDEMA, UNSPECIFIED Qualifiers: Edema type: unspecified Qualified Code(s): R60.9 - Edema, unspecified (3) AMARJIT (acute kidney injury) Code(s): N17.9 - ACUTE KIDNEY FAILURE, UNSPECIFIED (4) Asthma exacerbation in COPD Code(s): J44.1 - CHRONIC OBSTRUCTIVE PULMONARY DISEASE W (ACUTE) EXACERBATION; J45.901 - UNSPECIFIED ASTHMA WITH (ACUTE) EXACERBATION (5) Bronchitis Code(s): J40 - BRONCHITIS, NOT SPECIFIED ACUTE OR CHRONIC Assessment/Plan Current Active Problems diabetes mellitus insulin pump use hypergycemia neuropathy Congestive heart failure (Acute) Edema (Acute) htn ashd Abnormal Lab Results 02/12/19 02/12/19 02/12/19 22:00 22:00 22:00 RBC 3.81 L Hgb 11.1 L Hct 33.3 L Retic Count Anion Gap 6 L Random Glucose 239 H Calcium 8.4 L Iron Saturation Unsaturated IBC Alkaline Phosphatase 131 H B-Natriuretic Peptide 219.3 H Cholesterol Total LDL Cholesterol Lipase 19 L Ur Specific [place] 02/12/19 02/13/19 02/13/19 22:00 10:34 10:34 RBC Hgb Hct Retic Count 1.79 H Anion Gap Random Glucose Calcium Iron Saturation 15 L Unsaturated IBC 280 H Alkaline Phosphatase B-Natriuretic Peptide Cholesterol Total LDL Cholesterol Lipase Ur Specific [place] 1.006 L 02/13/19 10:34 RBC Hgb Hct Retic Count Anion Gap Random Glucose Calcium Iron Saturation Unsaturated IBC Alkaline Phosphatase B-Natriuretic Peptide Cholesterol 205 H Total LDL Cholesterol 129 H Lipase Ur Specific [place] Laboratory Tests 02/12/19 02/12/19 22:00 22:28 Sodium 141 Potassium 3.7 Chloride 106 Carbon Dioxide 30 Anion Gap 6 L BUN 10.4 Creatinine 1.3 Est GFR (CKD-EPI)AfAm 67.78 POC Glucometer 217 plan: bgm qid novolog with pump continue use of insulin device furosemide 40mg daily follow up as outpatient
[2019-02-13 15:32] VITALS: BP 106/47; PULSE 66; TEMP 97.4
[2019-02-13] MEDS ORDERED: BUDESONIDE/FORMETEROL FUMARATE 160/4.5 mcg INHALER IH SCH (22:00)
[2019-02-13] MEDS ORDERED: MONTELUKAST NA 10 MG TABLET PO SCH (22:00)
[2019-02-13] MEDS ORDERED: ATORVASTATIN CA 40 MG TABLET (FP) PO SCH (22:00)
[2019-02-13] MEDS ORDERED: CARVEDILOL 6.25 MG TABLET (FP) PO SCH (22:00)
== END 2019-02-13 15:40 | disposition home or self-care (01) ==
LOC: JER 20:58 → JERBED 02-13 03:23
PROVIDERS: ADMIT Family Medicine; ATTEND Family Medicine
PROC: 3E033GC Introduction of Other Therapeutic Substance into Peripheral Vein, Percutaneous Approach (ICD-10-PCS; principal; 2019-02-13)
PROC: 3E013GC Introduction of Other Therapeutic Substance into Subcutaneous Tissue, Percutaneous Approach (ICD-10-PCS; 2019-02-13)
DX: I50.9 Heart failure, unspecified (principal); R60.9 Edema, unspecified; I11.0 Hypertensive heart disease with heart failure; I25.10 Atherosclerotic heart disease of native coronary artery without angina pectoris; E11.65 Type 2 diabetes mellitus with hyperglycemia; Z96.41 Presence of insulin pump (external) (internal); G47.33 Obstructive sleep apnea (adult) (pediatric); D64.9 Anemia, unspecified; K21.9 Gastro-esophageal reflux disease without esophagitis; E03.9 Hypothyroidism, unspecified; E83.51 Hypocalcemia; R51 Headache; J44.9 Chronic obstructive pulmonary disease, unspecified; R74.8 Abnormal levels of other serum enzymes; E66.9 Obesity, unspecified; Z68.32 Body mass index [BMI] 32.0-32.9, adult; Z87.891 Personal history of nicotine dependence; Z98.61 Coronary angioplasty status; Z86.718 Personal history of other venous thrombosis and embolism; Z99.81 Dependence on supplemental oxygen; Z79.82 Long term (current) use of aspirin
CPT/HCPCS: 36415; 70496-TC; 70498-TC; 71045-TC-FY; 80053; 80061; 81003; 82550; 82553; 82607; 82728; 82747; 82962; 82977; 83036; 83540; 83550; 83690; 83721; 83735; 83880; 84443; 84484; 85014; 85025; 85044; 87086; 93005; 93010; 93306-TC; 93925-TC; 93970-TC; 96372; 96374; 96376; 99285-25; G0378